=== PATIENT | male | born 1965 | race Caucasian/White ===

== ENCOUNTER 2016-04-11 17:53 | Emergency (ER) | payer BC ==
[2016-04-11 18:24] LABS: BASO % 0.4 % (0.0-1.0); EOS # 0.2 K/mm3 (0.0-0.50); EOS % 2.4 % (0.0-3.0); LARGE UNSTAINED CELL # 0.2 K/mm3 (0.0-0.4); LYMPH # 2.7 K/mm3 (1.5-4.5); LYMPH % 33.6 % (24.0-44.0); MEAN CORPUSCULAR HEMOGLOBIN 29.5 pg (27.0-33.0); MEAN CORPUSCULAR HGB CONC 34.8 g/dl (32.0-36.5); MEAN CORPUSCULAR VOLUME 84.9 fl (80.0-96.0); MONO # 0.5 K/mm3 (0.0-0.8); MONO % 6.6 % (0.0-5.0); NEUTROPHILS # 4.4 K/mm3 (1.8-7.7); PLATELET COUNT, AUTOMATED 162 k/mm3 (150-450); RED CELL DISTRIBUTION WIDTH 12.1 % (11.5-14.5)
[2016-04-11 18:30] LABS: INR 0.95
[2016-04-11 18:46] LABS: ANION GAP 5 MEQ/L (8-16); BLOOD UREA NITROGEN 18 MG/DL (7-18); CALCIUM LEVEL 8.3 MG/DL (8.5-10.1); CARBON DIOXIDE LEVEL 32 MEQ/L (21-32); CHLORIDE LEVEL 105 MEQ/L (98-107); CREATININE FOR GFR 1.01 MG/DL (0.70-1.30); GLOMERULAR FILTRATION RATE > 60.0 (>60); GLUCOSE, FASTING 98 MG/DL (70-105); POTASSIUM SERUM 4.1 MEQ/L (3.5-5.1); SODIUM LEVEL 142 MEQ/L (136-145)
--- NOTE | 2016-04-11 19:07 | REP ---
Clinical: Chest pain . Comparison: 01/05/2016 . Findings: The mediastinum and cardiac silhouette are stable and within normal limits for portable technique. The lung yung are clear without acute consolidation, effusion, or pneumothorax. Skeletal structures are intact. Impression: Stable. No acute cardiopulmonary process identified. The Signed by Garo Scanlon MD 04/11/2016 06:59 P
--- NOTE | 2016-04-12 01:18 | EDDOCDS ---
Nurse's Notes [facility] Name: Fadumo Calloway Age: 50 yrs Sex: Male : 1965 Arrival Date: 04/11/2016 Time: 17:53 Bed OBSERVATION Private MD: Delisa Nickerson Diagnosis: Chest pain, unspecified Presentation: 04/11 17:59 Presenting complaint: Patient states: sudden onset of left sided chest pain while dy working outside. took 1 NTG with some resolution of pain from 09/06 to 06/06 after NTG. patient states that pain now is in left upper back and left upper chest area. Aspirin was taken MED CARE MANAGER. Adult Sepsis Screening: The patient does not have new or worsening altered mentation. Patient's respiratory rate is less than 22. Systolic blood pressure is greater than 100. Patient has a qSOFA score of 0- Negative Sepsis Screen. Suicide/Homicide risk assessment- the patient denies having any suicidal and/or homicidal ideations and does not present with any other emotional, behavioral or mental health complaints. Status: Patient is not a sales service technician or dependent. Transition of care: patient was not received from another setting of care. 17:59 Acuity: TEODORO Level 2 dy 17:59 Method Of Arrival: Walkin/Carried/Asstd dy Triage Assessment: 04/12 01:16 Cardiovascular: Chest pain episodes. kas2 01:16 Pt Declines HIV testing. kas2 Historical: - Allergies: No known drug Allergies; - Home Meds: 1. aspirin 325 mg oral TbEC 1 tab once daily (Last dose: 04/11/2016 07:00) 2. nitroglycerin 0.4 mg SL subl 1 tab (Last dose: 04/11/2016 16:15) 3. Lipitor 80 mg Oral tab 1 tab once daily 4. Plavix 75 mg Oral tab 1 tab once daily 5. Prilosec 40 mg Oral cpDR 1 cap once daily 6. metoprolol succinate 25 mg Tb24 1 tab once daily - PMHx: GERD; Hypercholesterolemia; Hypertension; - PSHx: Cardiac stents; Angioplasty; - Social history: No barriers to communication noted, The patient speaks fluent Maltese, Speaks appropriately for age, Smoking status: Patient states was never smoker of tobacco. - Family history: Not pertinent. - : The pt / caregiver states he / she is on anticoagulants: Plavix. Home medication list is obtained from the patient. - Exposure Risk Screening:: None identified. Screenin/13 18:20 Screening information is obtained from the patient. Fall risk: No risks identified. ml6 Assistance ADL's: requires no assistance with activities of daily living. Abuse/DV Screen: The patient / caregiver reports he/she is: not in a situation that causes fear, pain or injury. Nutritional screening: No deficits noted. Advance Directives: Currently, there is no health care proxy. home support is adequate. Assessment: 18:00 General: Appears in no apparent distress, comfortable, Behavior is appropriate for age, ml6 cooperative. Pain: Denies pain. Neurological: No deficits noted. Level of Consciousness is awake, alert, Oriented to person, place, time. Cardiovascular: Capillary refill < 3 seconds is brisk in bilateral fingers toes Heart tones S1 S2 present Edema is absent. Pulses are all present. Rhythm is regular Chest pain is denied. Respiratory: No deficits noted. Airway is patent Respiratory effort is even, unlabored, Respiratory pattern is regular, symmetrical, Breath sounds are clear bilaterally. GI: No deficits noted. 19:04 General: Verbal report given by Hernesto Baltazar RN. Assumed care of patient at this time.. kas2 19:51 General: Appears in no apparent distress, comfortable, well nourished, well groomed, kas2 Behavior is appropriate for age, cooperative. Pain: Denies pain. Neurological: Level of Consciousness is awake, alert, Oriented to person, place, time. Cardiovascular: Capillary refill < 3 seconds Heart tones S1 S2 present Rhythm is sinus rhythm No ectopy. Chest pain is denied. Respiratory: Airway is patent Respiratory effort is even, unlabored, Respiratory pattern is regular, symmetrical, Breath sounds are clear bilaterally. GI: No deficits noted. Derm: Skin is intact, is healthy with good turgor, Skin is dry, Skin is pink, warm & dry. Skin temperature is warm. 21:05 General: Patient resting in bed with at bedside. Denies pain or discomfort at this kas2 time. No distress noted. Appears comfortable. Call ledesma within reach. Will continue to monitor.. 22:09 General: Appears in no apparent distress, comfortable, well nourished, well groomed, kas2 Behavior is appropriate for age, cooperative. Pain: Denies pain. Neurological: Level of Consciousness is awake, alert, Oriented to person, place, time. Cardiovascular: Rhythm is sinus rhythm No ectopy. Respiratory: Airway is patent Respiratory effort is even, unlabored, Respiratory pattern is regular, symmetrical. Derm: Skin is intact, is healthy with good turgor, Skin is dry, Skin is pink, warm & dry. Skin temperature is warm. 23:21 General: Patient sitting up in bed with at bedside. Denies pain or discomfort at kas2 this time. Appears comfortable. No distress noted. Call ledesma within reach. Will continue to monitor.. 04/12 00:33 General: Appears in no apparent distress, comfortable, well nourished, well groomed, kas2 Behavior is appropriate for age, cooperative, Smells of. Pain: Denies pain. Neurological: Level of Consciousness is awake, alert, Oriented to person, place, time. Cardiovascular: Rhythm is sinus rhythm No ectopy. Respiratory: No deficits noted. Airway is patent Respiratory effort is even, unlabored, Respiratory pattern is regular, symmetrical. Derm: Skin is intact, is healthy with good turgor, Skin is dry, Skin is pink, warm & dry. Skin temperature is warm. Vital Signs: 04/11 17:54 BP 152 / 83; Pulse 64; Resp 18; Temp 97.0(T); Pulse Ox 100% on R/A; Weight 97.52 kg dd6 (R); Height 6 ft. 0 in. (182.88 cm) (R); 18:02 BP 148 / 88 (auto/); kas2 18:03 Pulse 62 MON; Pulse Ox 97% ; kas2 18:03 Resp 20; Temp 97.6(O); Pain 0/10; kas2 18:17 BP 130 / 85 (auto/); kas2 18:17 Pulse 68 MON; Pulse Ox 97% ; kas2 18:32 BP 137 / 83 (auto/); kas2 18:32 Pulse 66 MON; Pulse Ox 96% ; kas2 18:47 BP 138 / 85 (auto/); kas2 18:47 Pulse 64 MON; Pulse Ox 97% ; kas2 19:10 BP 137 / 78 (auto/); kas2 19:10 Pulse 64 MON; Pulse Ox 96% ; kas2 19:17 BP 132 / 83 (auto/); kas2 19:17 Pulse 66 MON; Pulse Ox 96% ; kas2 19:32 BP 140 / 83 (auto/); kas2 19:32 Pulse 64 MON; Pulse Ox 96% ; kas2 19:47 BP 138 / 81 (auto/); kas2 19:47 Pulse 64 MON; Pulse Ox 97% ; kas2 20:02 BP 136 / 82 (auto/); kas2 20:02 Pulse 64 MON; Pulse Ox 97% ; kas2 20:02 Resp 20; kas2 20:17 BP 145 / 87 (auto/); kas2 20:17 Pulse 72 MON; Pulse Ox 97% ; kas2 20:32 BP 135 / 90 (auto/); kas2 20:32 Pulse 70 MON; Pulse Ox 96% ; kas2 20:47 BP 135 / 85 (auto/); kas2 20:47 Pulse 70 MON; Pulse Ox 97% ; kas2 21:02 BP 128 / 78 (auto/); kas2 21:02 Pulse 62 MON; Pulse Ox 97% ; kas2 21:17 BP 148 / 79 (auto/); kas2 21:17 Pulse 68 MON; Pulse Ox 98% ; kas2 21:32 BP 141 / 81 (auto/); kas2 21:32 Pulse 70 MON; Pulse Ox 98% ; kas2 21:47 BP 140 / 87 (auto/); kas2 21:47 Pulse 68 MON; Pulse Ox 96% ; kas2 22:02 BP 142 / 89 (auto/); kas2 22:02 Pulse 68 MON; Pulse Ox 97% ; kas2 22:17 BP 141 / 89 (auto/); kas2 22:17 Pulse 70 MON; Pulse Ox 97% ; kas2 22:32 BP 138 / 87 (auto/); kas2 22:32 Pulse 68 MON; Pulse Ox 97% ; kas2 22:47 Pulse 56 MON; Pulse Ox 96% ; kas2 22:47 BP 134 / 83 (auto/); kas2 23:02 BP 141 / 83 (auto/); kas2 23:02 Pulse 58 MON; Pulse Ox 96% ; kas2 23:17 BP 129 / 78 (auto/); kas2 23:17 Pulse 62 MON; Pulse Ox 96% ; kas2 23:32 BP 126 / 76 (auto/); kas2 23:32 Pulse 62 MON; Pulse Ox 96% ; kas2 04/12 01:14 BP 127 / 64; Pulse 72; Resp 18; Temp 97.9(O); Pulse Ox 99% on R/A; Pain 0/10; kas2 04/11 17:54 Body Mass Index 29.16 (97.52 kg, 182.88 cm) dd6 Vitals: 04/11 17:54 Log In Time: April 11, 2016 at 17:52. dd6 17:55 RN notified that patient meets Red Flag criteria. dd6 ED Course: 17:53 Patient visited by Ankit Rodriguez PCA. dd6 17:53 Patient moved to Waiting dd6 17:54 Delisa Nickerson is Private Physician. dd6 17:59 Barry Baltazar, JUWAN is Primary Nurse. jc4 17:59 Patient moved to 11 jc4 18:01 Triage Initiated dy 18:03 Lauryn Perkins MD is Attending Physician. sd1 18:05 managed care director on. Pulse ox on. NIBP on. kas2 18:14 Patient visited by Lauryn Perkins MD. sd1 18:17 Inserted peripheral IV: 16gauge IV in left antecubital area and blood collected. ml6 Patient tolerated the procedure well. Labs drawn. (by ED staff). Sent per order to lab. 18:44 Patient visited by Kalyani Johnson PCA. jl 18:55 Patient moved to OBSERVATION sd1 19:02 Raisa Smith,RN is Primary Nurse. kas2 19:04 Patient visited by Raisa Smith RN. kas2 19:08 portable chest Returned. EDMS 19:46 Attending Physician role handed off by Lauryn Perkins MD cs11 19:46 Paul Alonso DO is Attending Physician. cs11 19:53 Patient visited by Raisa Smith RN. kas2 21:07 Patient visited by Raisa Smith RN. kas2 22:10 Patient visited by Raisa Smith RN. kas2 23:22 Patient visited by Raisa Smith RN. kas2 04/12 00:20 Patient visited by Lizbeth Benton, Emissions Inspector. jlm 00:20 CARDIAC MARKER PANEL Sent. jlm 00:20 EKG done. (by ED staff). Reviewed by Paul Alonso DO. jlm 00:33 No procedures done that require assistance. kas2 00:34 Patient visited by Raisa Smith RN. [facility]2 01:08 Kody Corrales is Referral Physician. cs11 01:15 Discontinued IV bleeding controlled, pressure dressing applied, No redness/swelling at [facility] site. 01:17 Patient visited by Raisa Smith RN. [facility] 01:17 The patient / caregiver is instructed regarding the plan of care and ED course. [facility] Order Results: Lab Order: Basic Metabolic Profile; SPEC'M 04/11/16 18:13 Test: GLUCOSE, FASTING; Value: 98; Range: 70-105; Units: MG/DL; Status: F Test: BLOOD UREA NITROGEN; Value: 18; Range: 7-18; Units: MG/DL; Status: F Test: CREATININE FOR GFR; Value: 1.01; Range: 0.70-1.30; Units: MG/DL; Status: F Test: GLOMERULAR FILTRATION RATE; Value: > 60.0; Range: >60; Status: F Test: SODIUM LEVEL; Value: 142; Range: 136-145; Units: MEQ/L; Status: F Test: POTASSIUM SERUM; Value: 4.1; Range: 3.5-5.1; Units: MEQ/L; Status: F Test: CHLORIDE LEVEL; Value: 105; Range: 98-107; Units: MEQ/L; Status: F Test: CARBON DIOXIDE LEVEL; Value: 32; Range: 21-32; Units: MEQ/L; Status: F Test: ANION GAP; Value: 5; Range: 8-16; Abnormal: Below low normal; Units: MEQ/L; Status: F Test: CALCIUM LEVEL; Value: 8.3; Range: 8.5-10.1; Abnormal: Below low normal; Units: MG/DL; Status: F Test Note: ; Units are mL/min/1.73 m2 Chronic Kidney Disease Staging per NKF: Stage I & II GFR >=60 Normal to Mildly Decreased Stage III GFR 30-59 Moderately Decreased Stage IV GFR 15-29 Severely Decreased Stage V GFR <15 Very Little GFR Left ESRD GFR <15 on COMMISSIONER OF CONCILIATION Lab Order: CBC with Diff; SPEC'M 04/11/16 18:13 Test: WHITE BLOOD COUNT; Value: 8.0; Range: 4.0-10.0; Units: K/mm3; Status: F Test: RED BLOOD COUNT; Value: 5.03; Range: 4.30-6.10; Units: M/mm3; Status: F Test: HEMOGLOBIN; Value: 14.9; Range: 14.0-18.0; Units: g/dl; Status: F Test: HEMATOCRIT; Value: 42.7; Range: 42.0-52.0; Units: %; Status: F Test: MEAN CORPUSCULAR VOLUME; Value: 84.9; Range: 80.0-96.0; Units: fl; Status: F Test: MEAN CORPUSCULAR HEMOGLOBIN; Value: 29.5; Range: 27.0-33.0; Units: pg; Status: F Test: MEAN CORPUSCULAR HGB CONC; Value: 34.8; Range: 32.0-36.5; Units: g/dl; Status: F Test: RED CELL DISTRIBUTION WIDTH; Value: 12.1; Range: 11.5-14.5; Units: %; Status: F Test: PLATELET COUNT, AUTOMATED; Value: 162; Range: 150-450; Units: k/mm3; Status: F Test: NEUTROPHILS %; Value: 55.0; Range: 36.0-66.0; Units: %; Status: F Test: LYMPH %; Value: 33.6; Range: 24.0-44.0; Units: %; Status: F Test: MONO %; Value: 6.6; Range: 0.0-5.0; Abnormal: Above high normal; Units: %; Status: F Test: EOS %; Value: 2.4; Range: 0.0-3.0; Units: %; Status: F Test: BASO %; Value: 0.4; Range: 0.0-1.0; Units: %; Status: F Test: LARGE UNSTAINED CELL %; Value: 2.0; Range: 0.0-4.0; Units: %; Status: F Test: NEUTROPHILS #; Value: 4.4; Range: 1.8-7.7; Units: K/mm3; Status: F Test: LYMPH #; Value: 2.7; Range: 1.5-4.5; Units: K/mm3; Status: F Test: MONO #; Value: 0.5; Range: 0.0-0.8; Units: K/mm3; Status: F Test: EOS #; Value: 0.2; Range: 0.0-0.50; Units: K/mm3; Status: F Test: BASO #; Value: 0.0; Range: 0.0-0.2; Units: K/mm3; Status: F Test: LARGE UNSTAINED CELL #; Value: 0.2; Range: 0.0-0.4; Units: K/mm3; Status: F Lab Order: Cardiac Injury Profile; [facility] 04/11/16 18:13 Test: CPK CREATINE PHOSPHOKINASE; Value: 107; Range: 39-308; Units: U/L; Status: F Test: CK-MB VALUE MASS; Value: 1.2; Range: 0.0-3.6; Units: NG/ML; Status: F Test: MB/CK RELATIVE INDEX; Value: 1.12; Range: < OR =4; Status: F Test Note: ; DIAGNOSIS CRITERIA MMB ng/ml Relative Index (RI) NON-AMI < or = 5 N/A [place]ASSERMAN ZONE > 5 < or = 4 AMI > 5 > 4 Lab Order: Prothrombin Time Profile\E\INR; [facility] 04/11/16 18:13 Test: PROTHROMBIN TIME; Value: 12.8; Range: 12.3-14.5; Units: SECONDS; Status: F Test: INR; Value: 0.95; Status: F Test Note: ; THERAPUTIC HUMAN INR VALUES INDICATIONS NORMAL RANGES PROPHYLAXIS/TREATMENT OF: VENOUS THROMBOSIS 2.0-3.0 PULMONARY EMBOLISM 2.0-3.0 PREVENTION OF SYSTEMIC EMBOLISM FROM: TISSUE HEART VALVES 2.0-3.0 ACUTE MYOCARDIAL INFARCTION 2.0-3.0 VALVULAR HEART DISEASE 2.0-3.0 ATRIAL FIBRILLATION 2.0-3.0 MECHANICAL VALVES(HIGH RISK) 2.5-3.5 RECURRENT MYOCARDIAL INFARCTION 2.5-3.5 Lab Order: Troponin; 04/11/16 18:13 Test: TROPONIN I; Value: < 0.02; Range: < 0.10; Units: NG/ML; Status: F Test Note: ; Troponin I Reference Interval for [employer] LOCI: 99th Percentile= 0.00-0.045 ng/ml Risk Stratification: <= 0.10 ng/ml Decreased Risk for Adverse Clinical Events. 0.10-1.50 ng/ml Increased Risk for Adverse Clinical Events. Evaluation of additional criterion and/or repeat testing in 2-6 hours is suggested to rule out myocardial damage. >= 1.50 ng/ml Indicative of Myocardial Injury. Lab Order: CARDIAC MARKER PANEL; SPEC'M 04/12/16 00:17 Test: CPK CREATINE PHOSPHOKINASE; Value: 84; Range: 39-308; Units: U/L; Status: F Test: CK-MB VALUE MASS; Value: 1.0; Range: 0.0-3.6; Units: NG/ML; Status: F Test: MB/CK RELATIVE INDEX; Value: 1.19; Range: < OR =4; Status: F Test: TROPONIN I; Value: < 0.02; Range: < 0.10; Units: NG/ML; Status: F Test Note: ; DIAGNOSIS CRITERIA MMB ng/ml Relative Index (RI) NON-AMI < or = 5 N/A WASSERMAN ZONE > 5 < or = 4 AMI > 5 > 4 Radiology Order: portable chest Test: portable chest REASON FOR EXAMINATION: Chest Pain; Clinical: Chest pain .; ; Comparison: 01/05/2016 .; ; Findings:; The mediastinum and cardiac silhouette are stable and within normal limits for; portable technique. The lung yung are clear without acute consolidation,; effusion, or pneumothorax. Skeletal structures are intact.; ; Impression:; Stable. No acute cardiopulmonary process identified. The; ; ; Signed by; Garo Scanlon MD 04/11/2016 06:59 P; Outcome: 01:08 Discharge ordered by Provider. 11 01:16 Discharge Assessment: patient administered narcotics - no. The following High Risk kas2 Discharge criteria are identified: None. Discharged to home ambulatory, with significant other. Condition: good Condition: stable Condition: improved. No special radiology studies were completed. Property :Personal belongings accompany Pt. 01:17 Patient left the ED. kas2 Signatures: Dispatcher [employer] EDMS Lauryn Perkins MD MD sd1 Scotty Deng, RN RN dy Ankit Rodriguez, NILESH PRICING LEAD dd6 Barry Baltazar RN RN ml6 Marlen Gramajo RN RN jc4 Paul Alonso DO DO cs11 Kalyani Johnson PRICING LEAD PRICING LEAD jlf Lizbeth Benton, Emissions Inspector Unit Raisa Chen,RN RN kas2 Corrections: (The following items were deleted from the chart) 04/11 18:07 18:03 Home Meds: metoprolol tartrate 50 mg Oral tab 1 tab 2 times per day; dy dy MTDD
--- NOTE | 2016-04-12 01:18 | EDDOCDS ---
[facility] Name: Fadumo Calloway Age: 50 yrs Sex: Male : 1965 Arrival Date: 04/11/2016 Time: 17:53 Bed OBSERVATION Private MD: Delisa Nickerson Disposition: 04/12/16 01:08 Discharged to Home/Self Care. Impression: Chest pain, unspecified. - Condition is Stable. - Medication Reconciliation, Local Pharmacy Hours form. - Follow up: Kody Corrales; When: Call to arrange an appointment; Reason: Recheck today's complaints. - Problem is an ongoing problem. - Symptoms have improved. Historical: - Allergies: No known drug Allergies; - Home Meds: 1. aspirin 325 mg oral TbEC 1 tab once daily (Last dose: 04/11/2016 07:00) 2. nitroglycerin 0.4 mg SL subl 1 tab (Last dose: 04/11/2016 16:15) 3. Lipitor 80 mg Oral tab 1 tab once daily 4. Plavix 75 mg Oral tab 1 tab once daily 5. Prilosec 40 mg Oral cpDR 1 cap once daily 6. metoprolol succinate 25 mg Tb24 1 tab once daily - PMHx: GERD; Hypercholesterolemia; Hypertension; - PSHx: Cardiac stents; Angioplasty; - Social history: No barriers to communication noted, The patient speaks fluent Frisian, Speaks appropriately for age, Smoking status: Patient states was never smoker of tobacco. - Family history: Not pertinent. - : The pt / caregiver states he / she is on anticoagulants: Plavix. Home medication list is obtained from the patient. - Exposure Risk Screening:: None identified. Vital Signs: 04/11 17:54 BP 152 / 83; Pulse 64; Resp 18; Temp 97.0(T); Pulse Ox 100% on R/A; Weight 97.52 kg / dd6 214.99 lbs (R); Height 6 ft. 0 in. (182.88 cm) (R); 18:02 BP 148 / 88 (auto/); kas2 18:03 Pulse 62 MON; Pulse Ox 97% ; kas2 18:03 Resp 20; Temp 97.6(O); Pain 0/10; kas2 18:17 BP 130 / 85 (auto/); kas2 18:17 Pulse 68 MON; Pulse Ox 97% ; kas2 18:32 BP 137 / 83 (auto/); kas2 18:32 Pulse 66 MON; Pulse Ox 96% ; kas2 18:47 BP 138 / 85 (auto/); kas2 18:47 Pulse 64 MON; Pulse Ox 97% ; kas2 19:10 BP 137 / 78 (auto/); kas2 19:10 Pulse 64 MON; Pulse Ox 96% ; kas2 19:17 BP 132 / 83 (auto/); kas2 19:17 Pulse 66 MON; Pulse Ox 96% ; kas2 19:32 BP 140 / 83 (auto/); kas2 19:32 Pulse 64 MON; Pulse Ox 96% ; kas2 19:47 BP 138 / 81 (auto/); kas2 19:47 Pulse 64 MON; Pulse Ox 97% ; kas2 20:02 BP 136 / 82 (auto/); kas2 20:02 Pulse 64 MON; Pulse Ox 97% ; kas2 20:02 Resp 20; kas2 20:17 BP 145 / 87 (auto/); kas2 20:17 Pulse 72 MON; Pulse Ox 97% ; kas2 20:32 BP 135 / 90 (auto/); kas2 20:32 Pulse 70 MON; Pulse Ox 96% ; kas2 20:47 BP 135 / 85 (auto/); kas2 20:47 Pulse 70 MON; Pulse Ox 97% ; kas2 21:02 BP 128 / 78 (auto/); kas2 21:02 Pulse 62 MON; Pulse Ox 97% ; kas2 21:17 BP 148 / 79 (auto/); kas2 21:17 Pulse 68 MON; Pulse Ox 98% ; kas2 21:32 BP 141 / 81 (auto/); kas2 21:32 Pulse 70 MON; Pulse Ox 98% ; kas2 21:47 BP 140 / 87 (auto/); kas2 21:47 Pulse 68 MON; Pulse Ox 96% ; kas2 22:02 BP 142 / 89 (auto/); kas2 22:02 Pulse 68 MON; Pulse Ox 97% ; kas2 22:17 BP 141 / 89 (auto/); kas2 22:17 Pulse 70 MON; Pulse Ox 97% ; kas2 22:32 BP 138 / 87 (auto/); kas2 22:32 Pulse 68 MON; Pulse Ox 97% ; kas2 22:47 Pulse 56 MON; Pulse Ox 96% ; kas2 22:47 BP 134 / 83 (auto/); kas2 23:02 BP 141 / 83 (auto/); kas2 23:02 Pulse 58 MON; Pulse Ox 96% ; kas2 23:17 BP 129 / 78 (auto/); kas2 23:17 Pulse 62 MON; Pulse Ox 96% ; kas2 23:32 BP 126 / 76 (auto/); kas2 23:32 Pulse 62 MON; Pulse Ox 96% ; [facility] 04/12 01:14 BP 127 / 64; Pulse 72; Resp 18; Temp 97.9(O); Pulse Ox 99% on R/A; Pain 0/10; [facility] 04/11 17:54 Body Mass Index 29.16 (97.52 kg, 182.88 cm) dd6 MDM: 04/11 17:59 ECG WITH READING ER PHYS+CARDIAG ordered. EDMS 18:02 Business Office Technology Instructor/Pulse Ox/q 30 min VS ordered. sd1 18:02 IV Saline Lock ordered. sd1 18:02 Rhythm Strip to chart ordered. sd1 18:02 Undress patient appropriately for examination ordered. sd1 18:03 Basic Metabolic Profile Ordered. EDMS 18:03 CBC with Diff Ordered. EDMS 18:03 Cardiac Injury Profile Ordered. EDMS 18:03 Prothrombin Time Profile\E\INR Ordered. EDMS 18:03 Troponin Ordered. EDMS 18:05 portable chest Ordered. EDMS 18:48 Basic Metabolic Profile Reviewed. sd1 18:48 CBC with Diff Reviewed. sd1 18:48 Prothrombin Time Profile\E\INR Reviewed. sd1 18:48 Troponin Reviewed. sd1 18:54 Basic Metabolic Profile Reviewed. sd1 18:54 Cardiac Injury Profile Reviewed. sd1 18:54 Troponin Reviewed. sd1 18:55 Redraw CIP &Troponin (put time in details section) ordered. sd1 18:55 Repeat EKG (put time details section) ordered. sd1 19:06 Repeat EKG (put time details section) complete. tmm1 19:06 Redraw CIP &Troponin (put time in details section) complete. tmm1 19:08 ECG WITH READING ER PHYS ordered. EDMS 19:21 portable chest Reviewed. sd1 19:30 Financial registration complete. gjb 19:31 CARDIAC MARKER PANEL Ordered. EDMS Signatures: Dispatcher [employer] EDMS Mars-Araya, Lauryn, MD MD sd1 Scotty Deng, RN RN dy Paul Alonso DO DO cs11 McLear, Saba, CONTROL SYSTEMS DRAFTING OFFICER CONTROL SYSTEMS DRAFTING OFFICER tmm1 Lety Arenas KimRN RN kas2 The chart was reviewed and I authenticate all verbal orders and agree with the evaluation and treatment provided.Corrections: (The following items were deleted from the chart) 18:07 18:03 Home Meds: metoprolol tartrate 50 mg Oral tab 1 tab 2 times per day; dy dy MTDD
--- NOTE | 2016-04-12 05:52 | ECGEPIP ---
Stationary ECG Study [facility] - ED Test Date: 2016-04-11 Pat Name: SCOTTY ROSALES Department: Room: - Gender: M Director Talent Management: : 1965 Requested By: Lauryn Perkins Order Number: [id number] Reading MD: Robinson Delatorre Measurements Intervals [place] Rate: 61 P: 36 IN: 154 QRS: 9 QRSD: 99 T: 14 QT: 379 QTc: 384 Interpretive Statements SINUS RHYTHM WITH SINUS ARRHYTHMIA POSSIBLE PRIOR INFERIOR INFARCT SIMILAR TO PRIORS Electronically Signed On 04-12-2016 5:51:52 EST by Robinson Delatorre
--- NOTE | 2016-04-12 07:15 | ECGEPIP ---
Stationary ECG Study [facility] - ED Test Date: 2016-04-12 Pat Name: SCOTTY ROSALES Department: Room: - Gender: M Engine Test Cell Technician: humphrey : 1965 Requested By: Lauryn Perkins Order Number: [id number] Reading MD: Lauryn Perkins Measurements Intervals [place] Rate: 63 P: 34 CO: 160 QRS: 24 QRSD: 108 T: 8 QT: 408 QTc: 418 Interpretive Statements SINUS RHYTHM ?PRIOR INFERIOR INFARCT SIMILAR 04/11/16 Electronically Signed On 04-12-2016 7:15:32 EST by Lauryn Perkins
--- NOTE | 2016-04-14 02:18 | EDDOCDS ---
Physician Documentation [facility] Name: Fadumo Calloway Age: 50 yrs Sex: Male : 1965 Arrival Date: 04/11/2016 Time: 17:53 Bed OBSERVATION Private MD: Delisa Nickerson Disposition: 04/12/16 01:08 Discharged to Home/Self Care. Impression: Chest pain, unspecified. - Condition is Stable. - Medication Reconciliation, Local Pharmacy Hours form. - Follow up: Kody Corrales; When: Call to arrange an appointment; Reason: Recheck today's complaints. - Problem is an ongoing problem. - Symptoms have improved. Historical: - Allergies: No known drug Allergies; - Home Meds: 1. aspirin 325 mg oral TbEC 1 tab once daily (Last dose: 04/11/2016 07:00) 2. nitroglycerin 0.4 mg SL subl 1 tab (Last dose: 04/11/2016 16:15) 3. Lipitor 80 mg Oral tab 1 tab once daily 4. Plavix 75 mg Oral tab 1 tab once daily 5. Prilosec 40 mg Oral cpDR 1 cap once daily 6. metoprolol succinate 25 mg Tb24 1 tab once daily - PMHx: GERD; Hypercholesterolemia; Hypertension; - PSHx: Cardiac stents; Angioplasty; - Social history: No barriers to communication noted, The patient speaks fluent Estonian, Speaks appropriately for age, Smoking status: Patient states was never smoker of tobacco. - Family history: Not pertinent. - : The pt / caregiver states he / she is on anticoagulants: Plavix. Home medication list is obtained from the patient. - Exposure Risk Screening:: None identified. Vital Signs: 04/11 17:54 BP 152 / 83; Pulse 64; Resp 18; Temp 97.0(T); Pulse Ox 100% on R/A; Weight 97.52 kg / dd6 214.99 lbs (R); Height 6 ft. 0 in. (182.88 cm) (R); 18:02 BP 148 / 88 (auto/); kas2 18:03 Pulse 62 MON; Pulse Ox 97% ; kas2 18:03 Resp 20; Temp 97.6(O); Pain 0/10; kas2 18:17 BP 130 / 85 (auto/); kas2 18:17 Pulse 68 MON; Pulse Ox 97% ; kas2 18:32 BP 137 / 83 (auto/); kas2 18:32 Pulse 66 MON; Pulse Ox 96% ; kas2 18:47 BP 138 / 85 (auto/); kas2 18:47 Pulse 64 MON; Pulse Ox 97% ; kas2 19:10 BP 137 / 78 (auto/); kas2 19:10 Pulse 64 MON; Pulse Ox 96% ; kas2 19:17 BP 132 / 83 (auto/); kas2 19:17 Pulse 66 MON; Pulse Ox 96% ; kas2 19:32 BP 140 / 83 (auto/); kas2 19:32 Pulse 64 MON; Pulse Ox 96% ; kas2 19:47 BP 138 / 81 (auto/); kas2 19:47 Pulse 64 MON; Pulse Ox 97% ; kas2 20:02 BP 136 / 82 (auto/); kas2 20:02 Pulse 64 MON; Pulse Ox 97% ; kas2 20:02 Resp 20; kas2 20:17 BP 145 / 87 (auto/); kas2 20:17 Pulse 72 MON; Pulse Ox 97% ; kas2 20:32 BP 135 / 90 (auto/); kas2 20:32 Pulse 70 MON; Pulse Ox 96% ; kas2 20:47 BP 135 / 85 (auto/); kas2 20:47 Pulse 70 MON; Pulse Ox 97% ; kas2 21:02 BP 128 / 78 (auto/); kas2 21:02 Pulse 62 MON; Pulse Ox 97% ; kas2 21:17 BP 148 / 79 (auto/); kas2 21:17 Pulse 68 MON; Pulse Ox 98% ; kas2 21:32 BP 141 / 81 (auto/); kas2 21:32 Pulse 70 MON; Pulse Ox 98% ; kas2 21:47 BP 140 / 87 (auto/); kas2 21:47 Pulse 68 MON; Pulse Ox 96% ; kas2 22:02 BP 142 / 89 (auto/); kas2 22:02 Pulse 68 MON; Pulse Ox 97% ; kas2 22:17 BP 141 / 89 (auto/); kas2 22:17 Pulse 70 MON; Pulse Ox 97% ; kas2 22:32 BP 138 / 87 (auto/); kas2 22:32 Pulse 68 MON; Pulse Ox 97% ; kas2 22:47 Pulse 56 MON; Pulse Ox 96% ; kas2 22:47 BP 134 / 83 (auto/); kas2 23:02 BP 141 / 83 (auto/); kas2 23:02 Pulse 58 MON; Pulse Ox 96% ; kas2 23:17 BP 129 / 78 (auto/); kas2 23:17 Pulse 62 MON; Pulse Ox 96% ; kas2 23:32 BP 126 / 76 (auto/); kas2 23:32 Pulse 62 MON; Pulse Ox 96% ; [facility] 04/12 01:14 BP 127 / 64; Pulse 72; Resp 18; Temp 97.9(O); Pulse Ox 99% on R/A; Pain 0/10; [facility] 04/11 17:54 Body Mass Index 29.16 (97.52 kg, 182.88 cm) dd6 MDM: 04/11 17:59 ECG WITH READING ER PHYS+CARDIAG ordered. EDMS 18:02 Commodity Industry Analyst/Pulse Ox/q 30 min VS ordered. sd1 18:02 IV Saline Lock ordered. sd1 18:02 Rhythm Strip to chart ordered. sd1 18:02 Undress patient appropriately for examination ordered. sd1 18:03 Basic Metabolic Profile Ordered. EDMS 18:03 CBC with Diff Ordered. EDMS 18:03 Cardiac Injury Profile Ordered. EDMS 18:03 Prothrombin Time Profile\E\INR Ordered. EDMS 18:03 Troponin Ordered. EDMS 18:05 portable chest Ordered. EDMS 18:48 Basic Metabolic Profile Reviewed. sd1 18:48 CBC with Diff Reviewed. sd1 18:48 Prothrombin Time Profile\E\INR Reviewed. sd1 18:48 Troponin Reviewed. sd1 18:54 Basic Metabolic Profile Reviewed. sd1 18:54 Cardiac Injury Profile Reviewed. sd1 18:54 Troponin Reviewed. sd1 18:55 Redraw CIP &Troponin (put time in details section) ordered. sd1 18:55 Repeat EKG (put time details section) ordered. sd1 19:06 Repeat EKG (put time details section) complete. tmm1 19:06 Redraw CIP &Troponin (put time in details section) complete. tmm1 19:08 ECG WITH READING ER PHYS ordered. EDMS 19:21 portable chest Reviewed. sd1 19:30 Financial registration complete. gjb 19:31 CARDIAC MARKER PANEL Ordered. EDMS 04/12 07:50 T-Sheet-- Draft Copy was scanned into [employer] and attached to record. se 10:59 ECG/EKG was scanned into [employer] and attached to record. gb 11:32 T-Sheet-- Draft Copy was scanned into [employer] and attached to record. gb Signatures: Dispatcher [employer] EDLauryn Rodriguez MD MD sd1 Genevieve Francois, Reg Reg gb Scotty Deng, RN RN Paul Sexton DO DO cs11 McLear, [place]aba, VETERINARY SURGEON VETERINARY SURGEON tmm1 Lety Arenas Kim, RN RN kas2 Lauryn Chavez [facility] The chart was reviewed and I authenticate all verbal orders and agree with the evaluation and treatment provided.Corrections: (The following items were deleted from the chart) 04/11 18:07 18:03 Home Meds: metoprolol tartrate 50 mg Oral tab 1 tab 2 times per day; kenneth cooper Attachments: 10:59 ECG/EKG 11:32 T-Sheet-- Draft Copy gb Chart Complete MTDD
--- NOTE | 2016-04-14 02:18 | EDDOCDS ---
Physician Documentation [facility] Name: Fadumo Calloway Age: 50 yrs Sex: Male : 1965 Arrival Date: 04/11/2016 Time: 17:53 Bed OBSERVATION Private MD: Delisa Nickerson Disposition: 04/12/16 01:08 Discharged to Home/Self Care. Impression: Chest pain, unspecified. - Condition is Stable. - Medication Reconciliation, Local Pharmacy Hours form. - Follow up: Kody Corrales; When: Call to arrange an appointment; Reason: Recheck today's complaints. - Problem is an ongoing problem. - Symptoms have improved. Historical: - Allergies: No known drug Allergies; - Home Meds: 1. aspirin 325 mg oral TbEC 1 tab once daily (Last dose: 04/11/2016 07:00) 2. nitroglycerin 0.4 mg SL subl 1 tab (Last dose: 04/11/2016 16:15) 3. Lipitor 80 mg Oral tab 1 tab once daily 4. Plavix 75 mg Oral tab 1 tab once daily 5. Prilosec 40 mg Oral cpDR 1 cap once daily 6. metoprolol succinate 25 mg Tb24 1 tab once daily - PMHx: GERD; Hypercholesterolemia; Hypertension; - PSHx: Cardiac stents; Angioplasty; - Social history: No barriers to communication noted, The patient speaks fluent Kiswahili, Speaks appropriately for age, Smoking status: Patient states was never smoker of tobacco. - Family history: Not pertinent. - : The pt / caregiver states he / she is on anticoagulants: Plavix. Home medication list is obtained from the patient. - Exposure Risk Screening:: None identified. Vital Signs: 04/11 17:54 BP 152 / 83; Pulse 64; Resp 18; Temp 97.0(T); Pulse Ox 100% on R/A; Weight 97.52 kg / dd6 214.99 lbs (R); Height 6 ft. 0 in. (182.88 cm) (R); 18:02 BP 148 / 88 (auto/); kas2 18:03 Pulse 62 MON; Pulse Ox 97% ; kas2 18:03 Resp 20; Temp 97.6(O); Pain 0/10; kas2 18:17 BP 130 / 85 (auto/); kas2 18:17 Pulse 68 MON; Pulse Ox 97% ; kas2 18:32 BP 137 / 83 (auto/); kas2 18:32 Pulse 66 MON; Pulse Ox 96% ; kas2 18:47 BP 138 / 85 (auto/); kas2 18:47 Pulse 64 MON; Pulse Ox 97% ; kas2 19:10 BP 137 / 78 (auto/); kas2 19:10 Pulse 64 MON; Pulse Ox 96% ; kas2 19:17 BP 132 / 83 (auto/); kas2 19:17 Pulse 66 MON; Pulse Ox 96% ; kas2 19:32 BP 140 / 83 (auto/); kas2 19:32 Pulse 64 MON; Pulse Ox 96% ; kas2 19:47 BP 138 / 81 (auto/); kas2 19:47 Pulse 64 MON; Pulse Ox 97% ; kas2 20:02 BP 136 / 82 (auto/); kas2 20:02 Pulse 64 MON; Pulse Ox 97% ; kas2 20:02 Resp 20; kas2 20:17 BP 145 / 87 (auto/); kas2 20:17 Pulse 72 MON; Pulse Ox 97% ; kas2 20:32 BP 135 / 90 (auto/); kas2 20:32 Pulse 70 MON; Pulse Ox 96% ; kas2 20:47 BP 135 / 85 (auto/); kas2 20:47 Pulse 70 MON; Pulse Ox 97% ; kas2 21:02 BP 128 / 78 (auto/); kas2 21:02 Pulse 62 MON; Pulse Ox 97% ; kas2 21:17 BP 148 / 79 (auto/); kas2 21:17 Pulse 68 MON; Pulse Ox 98% ; kas2 21:32 BP 141 / 81 (auto/); kas2 21:32 Pulse 70 MON; Pulse Ox 98% ; kas2 21:47 BP 140 / 87 (auto/); kas2 21:47 Pulse 68 MON; Pulse Ox 96% ; kas2 22:02 BP 142 / 89 (auto/); kas2 22:02 Pulse 68 MON; Pulse Ox 97% ; kas2 22:17 BP 141 / 89 (auto/); kas2 22:17 Pulse 70 MON; Pulse Ox 97% ; kas2 22:32 BP 138 / 87 (auto/); kas2 22:32 Pulse 68 MON; Pulse Ox 97% ; kas2 22:47 Pulse 56 MON; Pulse Ox 96% ; kas2 22:47 BP 134 / 83 (auto/); kas2 23:02 BP 141 / 83 (auto/); kas2 23:02 Pulse 58 MON; Pulse Ox 96% ; kas2 23:17 BP 129 / 78 (auto/); kas2 23:17 Pulse 62 MON; Pulse Ox 96% ; kas2 23:32 BP 126 / 76 (auto/); kas2 23:32 Pulse 62 MON; Pulse Ox 96% ; [facility] 04/12 01:14 BP 127 / 64; Pulse 72; Resp 18; Temp 97.9(O); Pulse Ox 99% on R/A; Pain 0/10; [facility] 04/11 17:54 Body Mass Index 29.16 (97.52 kg, 182.88 cm) dd6 MDM: 04/11 17:59 ECG WITH READING ER PHYS+CARDIAG ordered. EDMS 18:02 Compliance Spec/Pulse Ox/q 30 min VS ordered. sd1 18:02 IV Saline Lock ordered. sd1 18:02 Rhythm Strip to chart ordered. sd1 18:02 Undress patient appropriately for examination ordered. sd1 18:03 Basic Metabolic Profile Ordered. EDMS 18:03 CBC with Diff Ordered. EDMS 18:03 Cardiac Injury Profile Ordered. EDMS 18:03 Prothrombin Time Profile\E\INR Ordered. EDMS 18:03 Troponin Ordered. EDMS 18:05 portable chest Ordered. EDMS 18:48 Basic Metabolic Profile Reviewed. sd1 18:48 CBC with Diff Reviewed. sd1 18:48 Prothrombin Time Profile\E\INR Reviewed. sd1 18:48 Troponin Reviewed. sd1 18:54 Basic Metabolic Profile Reviewed. sd1 18:54 Cardiac Injury Profile Reviewed. sd1 18:54 Troponin Reviewed. sd1 18:55 Redraw CIP &Troponin (put time in details section) ordered. sd1 18:55 Repeat EKG (put time details section) ordered. sd1 19:06 Repeat EKG (put time details section) complete. tmm1 19:06 Redraw CIP &Troponin (put time in details section) complete. tmm1 19:08 ECG WITH READING ER PHYS ordered. EDMS 19:21 portable chest Reviewed. sd1 19:30 Financial registration complete. gjb 19:31 CARDIAC MARKER PANEL Ordered. EDMS 04/12 07:50 T-Sheet-- Draft Copy was scanned into [employer] and attached to record. se 10:59 ECG/EKG was scanned into [employer] and attached to record. gb 11:32 T-Sheet-- Draft Copy was scanned into [employer] and attached to record. gb Signatures: Dispatcher [employer] EDLauryn Rodriguez MD MD sd1 Genevieve Francois, Reg Reg gb Scotty Deng, RN RN Paul Sexton DO DO cs11 McLear, [place], JD EDWARDS CONSULTANT JD EDWARDS CONSULTANT tmm1 Lety Arenas Kim, RN RN kas2 Lauryn Chavez [facility] The chart was reviewed and I authenticate all verbal orders and agree with the evaluation and treatment provided.Corrections: (The following items were deleted from the chart) 04/11 18:07 18:03 Home Meds: metoprolol tartrate 50 mg Oral tab 1 tab 2 times per day; kenneth cooper Attachments: 10:59 ECG/EKG 11:32 T-Sheet-- Draft Copy gb Chart Complete MTDD
--- NOTE | 2016-04-14 02:18 | EDDOCDS ---
Nurse's Notes [facility] Name: Scotty Rosales Age: 50 yrs Sex: Male : 1965 Arrival Date: 04/11/2016 Time: 17:53 Bed OBSERVATION Private MD: Delisa Nickerson Diagnosis: Chest pain, unspecified Presentation: 04/11 17:59 Presenting complaint: Patient states: sudden onset of left sided chest pain while dy working outside. took 1 NTG with some resolution of pain from 09/06 to 06/06 after NTG. patient states that pain now is in left upper back and left upper chest area. 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 Adult Sepsis Screening: The patient does not have new or worsening altered mentation. Patient's respiratory rate is less than 22. Systolic blood pressure is greater than 100. Patient has a qSOFA score of 0- Negative Sepsis Screen. Suicide/Homicide risk assessment- the patient denies having any suicidal and/or homicidal ideations and does not present with any other emotional, behavioral or mental health complaints. Status: Patient is not a services mgr or dependent. Transition of care: patient was not received from another setting of care. 17:59 Acuity: TEODORO Level 2 dy 17:59 Method Of Arrival: Walkin/Carried/Asstd dy Triage Assessment: 04/12 01:16 Cardiovascular: Chest pain episodes. kas2 01:16 Pt Declines HIV testing. kas2 Historical: - Allergies: No known drug Allergies; - Home Meds: 1. aspirin 325 mg oral TbEC 1 tab once daily (Last dose: 04/11/2016 07:00) 2. nitroglycerin 0.4 mg SL subl 1 tab (Last dose: 04/11/2016 16:15) 3. Lipitor 80 mg Oral tab 1 tab once daily 4. Plavix 75 mg Oral tab 1 tab once daily 5. Prilosec 40 mg Oral cpDR 1 cap once daily 6. metoprolol succinate 25 mg Tb24 1 tab once daily - PMHx: GERD; Hypercholesterolemia; Hypertension; - PSHx: Cardiac stents; Angioplasty; - Social history: No barriers to communication noted, The patient speaks fluent Divehi, Speaks appropriately for age, Smoking status: Patient states was never smoker of tobacco. - Family history: Not pertinent. - : The pt / caregiver states he / she is on anticoagulants: Plavix. Home medication list is obtained from the patient. - Exposure Risk Screening:: None identified. Screenin/13 18:20 Screening information is obtained from the patient. Fall risk: No risks identified. ml6 Assistance ADL's: requires no assistance with activities of daily living. Abuse/DV Screen: The patient / caregiver reports he/she is: not in a situation that causes fear, pain or injury. Nutritional screening: No deficits noted. Advance Directives: Currently, there is no health care proxy. home support is adequate. Assessment: 18:00 General: Appears in no apparent distress, comfortable, Behavior is appropriate for age, ml6 cooperative. Pain: Denies pain. Neurological: No deficits noted. Level of Consciousness is awake, alert, Oriented to person, place, time. Cardiovascular: Capillary refill < 3 seconds is brisk in bilateral fingers toes Heart tones S1 S2 present Edema is absent. Pulses are all present. Rhythm is regular Chest pain is denied. Respiratory: No deficits noted. Airway is patent Respiratory effort is even, unlabored, Respiratory pattern is regular, symmetrical, Breath sounds are clear bilaterally. GI: No deficits noted. 19:04 General: Verbal report given by Hernesto Baltazar RN. Assumed care of patient at this time.. kas2 19:51 General: Appears in no apparent distress, comfortable, well nourished, well groomed, kas2 Behavior is appropriate for age, cooperative. Pain: Denies pain. Neurological: Level of Consciousness is awake, alert, Oriented to person, place, time. Cardiovascular: Capillary refill < 3 seconds Heart tones S1 S2 present Rhythm is sinus rhythm No ectopy. Chest pain is denied. Respiratory: Airway is patent Respiratory effort is even, unlabored, Respiratory pattern is regular, symmetrical, Breath sounds are clear bilaterally. GI: No deficits noted. Derm: Skin is intact, is healthy with good turgor, Skin is dry, Skin is pink, warm & dry. Skin temperature is warm. 21:05 General: Patient resting in bed with at bedside. Denies pain or discomfort at this kas2 time. No distress noted. Appears comfortable. Call ledesma within reach. Will continue to monitor.. 22:09 General: Appears in no apparent distress, comfortable, well nourished, well groomed, kas2 Behavior is appropriate for age, cooperative. Pain: Denies pain. Neurological: Level of Consciousness is awake, alert, Oriented to person, place, time. Cardiovascular: Rhythm is sinus rhythm No ectopy. Respiratory: Airway is patent Respiratory effort is even, unlabored, Respiratory pattern is regular, symmetrical. Derm: Skin is intact, is healthy with good turgor, Skin is dry, Skin is pink, warm & dry. Skin temperature is warm. 23:21 General: Patient sitting up in bed with at bedside. Denies pain or discomfort at kas2 this time. Appears comfortable. No distress noted. Call ledesma within reach. Will continue to monitor.. 04/12 00:33 General: Appears in no apparent distress, comfortable, well nourished, well groomed, kas2 Behavior is appropriate for age, cooperative, Smells of. Pain: Denies pain. Neurological: Level of Consciousness is awake, alert, Oriented to person, place, time. Cardiovascular: Rhythm is sinus rhythm No ectopy. Respiratory: No deficits noted. Airway is patent Respiratory effort is even, unlabored, Respiratory pattern is regular, symmetrical. Derm: Skin is intact, is healthy with good turgor, Skin is dry, Skin is pink, warm & dry. Skin temperature is warm. Vital Signs: 04/11 17:54 BP 152 / 83; Pulse 64; Resp 18; Temp 97.0(T); Pulse Ox 100% on R/A; Weight 97.52 kg dd6 (R); Height 6 ft. 0 in. (182.88 cm) (R); 18:02 BP 148 / 88 (auto/); kas2 18:03 Pulse 62 MON; Pulse Ox 97% ; kas2 18:03 Resp 20; Temp 97.6(O); Pain 0/10; kas2 18:17 BP 130 / 85 (auto/); kas2 18:17 Pulse 68 MON; Pulse Ox 97% ; kas2 18:32 BP 137 / 83 (auto/); kas2 18:32 Pulse 66 MON; Pulse Ox 96% ; kas2 18:47 BP 138 / 85 (auto/); kas2 18:47 Pulse 64 MON; Pulse Ox 97% ; kas2 19:10 BP 137 / 78 (auto/); kas2 19:10 Pulse 64 MON; Pulse Ox 96% ; kas2 19:17 BP 132 / 83 (auto/); kas2 19:17 Pulse 66 MON; Pulse Ox 96% ; kas2 19:32 BP 140 / 83 (auto/); kas2 19:32 Pulse 64 MON; Pulse Ox 96% ; kas2 19:47 BP 138 / 81 (auto/); kas2 19:47 Pulse 64 MON; Pulse Ox 97% ; kas2 20:02 BP 136 / 82 (auto/); kas2 20:02 Pulse 64 MON; Pulse Ox 97% ; kas2 20:02 Resp 20; kas2 20:17 BP 145 / 87 (auto/); kas2 20:17 Pulse 72 MON; Pulse Ox 97% ; kas2 20:32 BP 135 / 90 (auto/); kas2 20:32 Pulse 70 MON; Pulse Ox 96% ; kas2 20:47 BP 135 / 85 (auto/); kas2 20:47 Pulse 70 MON; Pulse Ox 97% ; kas2 21:02 BP 128 / 78 (auto/); kas2 21:02 Pulse 62 MON; Pulse Ox 97% ; kas2 21:17 BP 148 / 79 (auto/); kas2 21:17 Pulse 68 MON; Pulse Ox 98% ; kas2 21:32 BP 141 / 81 (auto/); kas2 21:32 Pulse 70 MON; Pulse Ox 98% ; kas2 21:47 BP 140 / 87 (auto/); kas2 21:47 Pulse 68 MON; Pulse Ox 96% ; kas2 22:02 BP 142 / 89 (auto/); kas2 22:02 Pulse 68 MON; Pulse Ox 97% ; kas2 22:17 BP 141 / 89 (auto/); kas2 22:17 Pulse 70 MON; Pulse Ox 97% ; kas2 22:32 BP 138 / 87 (auto/); kas2 22:32 Pulse 68 MON; Pulse Ox 97% ; kas2 22:47 Pulse 56 MON; Pulse Ox 96% ; kas2 22:47 BP 134 / 83 (auto/); kas2 23:02 BP 141 / 83 (auto/); kas2 23:02 Pulse 58 MON; Pulse Ox 96% ; kas2 23:17 BP 129 / 78 (auto/); kas2 23:17 Pulse 62 MON; Pulse Ox 96% ; kas2 23:32 BP 126 / 76 (auto/); kas2 23:32 Pulse 62 MON; Pulse Ox 96% ; kas2 04/12 01:14 BP 127 / 64; Pulse 72; Resp 18; Temp 97.9(O); Pulse Ox 99% on R/A; Pain 0/10; kas2 04/11 17:54 Body Mass Index 29.16 (97.52 kg, 182.88 cm) dd6 Vitals: 04/11 17:54 Log In Time: April 11, 2016 at 17:52. dd6 17:55 RN notified that patient meets Red Flag criteria. dd6 ED Course: 17:53 Patient visited by Ankit Rodriguez PCA. dd6 17:53 Patient moved to Waiting dd6 17:54 Delisa Nickerson is Private Physician. dd6 17:59 Barry Baltazar, JUWAN is Primary Nurse. jc4 17:59 Patient moved to 11 jc4 18:01 Triage Initiated dy 18:03 Lauryn Perkins MD is Attending Physician. sd1 18:05 logger all round on. Pulse ox on. NIBP on. kas2 18:14 Patient visited by Lauryn Perkins MD. sd1 18:17 Inserted peripheral IV: 16gauge IV in left antecubital area and blood collected. ml6 Patient tolerated the procedure well. Labs drawn. (by ED staff). Sent per order to lab. 18:44 Patient visited by Kalyani Johnson PCA. jl 18:55 Patient moved to OBSERVATION sd1 19:02 Raisa Smith,RN is Primary Nurse. kas2 19:04 Patient visited by Raisa Smith RN. kas2 19:08 portable chest Returned. EDMS 19:46 Attending Physician role handed off by Lauryn Perkins MD cs11 19:46 Paul Alonso DO is Attending Physician. cs11 19:53 Patient visited by Raisa Smith RN. kas2 21:07 Patient visited by Raisa Smith RN. kas2 22:10 Patient visited by Raisa Smith RN. kas2 23:22 Patient visited by Raisa Smith RN. kas2 04/12 00:20 Patient visited by Lizbeth Benton, Cigar Head Pegger. jlm 00:20 CARDIAC MARKER PANEL Sent. jlm 00:20 EKG done. (by ED staff). Reviewed by Paul Alonso DO. jlm 00:33 No procedures done that require assistance. kas2 00:34 Patient visited by Raisa Smith RN. [facility] 01:08 Kody Corrales is Referral Physician. cs11 01:15 Discontinued IV bleeding controlled, pressure dressing applied, No redness/swelling at [facility]. 01:17 Patient visited by Raisa Smith RN. [facility] 01:17 The patient / caregiver is instructed regarding the plan of care and ED course. kas2 06:05 EKG-ADULT Returned. EDMS 07:23 ECG WITH READING ER PHYS Returned. EDMS 07:50 T-Sheet-- Draft Copy was scanned into Re.[email or web address] and attached to record. seh 10:59 ECG/EKG was scanned into [employer] and attached to record. gb 11:32 T-Sheet-- Draft Copy was scanned into [employer] and attached to record. gb Order Results: Lab Order: Basic Metabolic Profile; SPEC'M 04/11/16 18:13 Test: GLUCOSE, FASTING; Value: 98; Range: 70-105; Units: MG/DL; Status: F Test: BLOOD UREA NITROGEN; Value: 18; Range: 7-18; Units: MG/DL; Status: F Test: CREATININE FOR GFR; Value: 1.01; Range: 0.70-1.30; Units: MG/DL; Status: F Test: GLOMERULAR FILTRATION RATE; Value: > 60.0; Range: >60; Status: F Test: SODIUM LEVEL; Value: 142; Range: 136-145; Units: MEQ/L; Status: F Test: POTASSIUM SERUM; Value: 4.1; Range: 3.5-5.1; Units: MEQ/L; Status: F Test: CHLORIDE LEVEL; Value: 105; Range: 98-107; Units: MEQ/L; Status: F Test: CARBON DIOXIDE LEVEL; Value: 32; Range: 21-32; Units: MEQ/L; Status: F Test: ANION GAP; Value: 5; Range: 8-16; Abnormal: Below low normal; Units: MEQ/L; Status: F Test: CALCIUM LEVEL; Value: 8.3; Range: 8.5-10.1; Abnormal: Below low normal; Units: MG/DL; Status: F Test Note: ; Units are mL/min/1.73 m2 Chronic Kidney Disease Staging per NKF: Stage I & II GFR >=60 Normal to Mildly Decreased Stage III GFR 30-59 Moderately Decreased Stage IV GFR 15-29 Severely Decreased Stage V GFR <15 Very Little GFR Left ESRD GFR <15 on PREPARATION ROOM WORKER Lab Order: CBC with Diff; SPEC'M 04/11/16 18:13 Test: WHITE BLOOD COUNT; Value: 8.0; Range: 4.0-10.0; Units: K/mm3; Status: F Test: RED BLOOD COUNT; Value: 5.03; Range: 4.30-6.10; Units: M/mm3; Status: F Test: HEMOGLOBIN; Value: 14.9; Range: 14.0-18.0; Units: g/dl; Status: F Test: HEMATOCRIT; Value: 42.7; Range: 42.0-52.0; Units: %; Status: F Test: MEAN CORPUSCULAR VOLUME; Value: 84.9; Range: 80.0-96.0; Units: fl; Status: F Test: MEAN CORPUSCULAR HEMOGLOBIN; Value: 29.5; Range: 27.0-33.0; Units: pg; Status: F Test: MEAN CORPUSCULAR HGB CONC; Value: 34.8; Range: 32.0-36.5; Units: g/dl; Status: F Test: RED CELL DISTRIBUTION WIDTH; Value: 12.1; Range: 11.5-14.5; Units: %; Status: F Test: PLATELET COUNT, AUTOMATED; Value: 162; Range: 150-450; Units: k/mm3; Status: F Test: NEUTROPHILS %; Value: 55.0; Range: 36.0-66.0; Units: %; Status: F Test: LYMPH %; Value: 33.6; Range: 24.0-44.0; Units: %; Status: F Test: MONO %; Value: 6.6; Range: 0.0-5.0; Abnormal: Above high normal; Units: %; Status: F Test: EOS %; Value: 2.4; Range: 0.0-3.0; Units: %; Status: F Test: BASO %; Value: 0.4; Range: 0.0-1.0; Units: %; Status: F Test: LARGE UNSTAINED CELL %; Value: 2.0; Range: 0.0-4.0; Units: %; Status: F Test: NEUTROPHILS #; Value: 4.4; Range: 1.8-7.7; Units: K/mm3; Status: F Test: LYMPH #; Value: 2.7; Range: 1.5-4.5; Units: K/mm3; Status: F Test: MONO #; Value: 0.5; Range: 0.0-0.8; Units: K/mm3; Status: F Test: EOS #; Value: 0.2; Range: 0.0-0.50; Units: K/mm3; Status: F Test: BASO #; Value: 0.0; Range: 0.0-0.2; Units: K/mm3; Status: F Test: LARGE UNSTAINED CELL #; Value: 0.2; Range: 0.0-0.4; Units: K/mm3; Status: F Lab Order: Cardiac Injury Profile; SPEC'M 04/11/16 18:13 Test: CPK CREATINE PHOSPHOKINASE; Value: 107; Range: 39-308; Units: U/L; Status: F Test: CK-MB VALUE MASS; Value: 1.2; Range: 0.0-3.6; Units: NG/ML; Status: F Test: MB/CK RELATIVE INDEX; Value: 1.12; Range: < OR =4; Status: F Test Note: ; DIAGNOSIS CRITERIA MMB ng/ml Relative Index (RI) NON-AMI < or = 5 N/A WASSERMAN ZONE > 5 < or = 4 AMI > 5 > 4 Lab Order: Prothrombin Time Profile\E\INR; SPEC'M 04/11/16 18:13 Test: PROTHROMBIN TIME; Value: 12.8; Range: 12.3-14.5; Units: SECONDS; Status: F Test: INR; Value: 0.95; Status: F Test Note: ; THERAPUTIC HUMAN INR VALUES INDICATIONS NORMAL RANGES PROPHYLAXIS/TREATMENT OF: VENOUS THROMBOSIS 2.0-3.0 PULMONARY EMBOLISM 2.0-3.0 PREVENTION OF SYSTEMIC EMBOLISM FROM: TISSUE HEART VALVES 2.0-3.0 ACUTE MYOCARDIAL INFARCTION 2.0-3.0 VALVULAR HEART DISEASE 2.0-3.0 ATRIAL FIBRILLATION 2.0-3.0 MECHANICAL VALVES(HIGH RISK) 2.5-3.5 RECURRENT MYOCARDIAL INFARCTION 2.5-3.5 Lab Order: Troponin; SPEC'M 04/11/16 18:13 Test: TROPONIN I; Value: < 0.02; Range: < 0.10; Units: NG/ML; Status: F Test Note: ; Troponin I Reference Interval for Siem[employer] [place] LOCI: 99th Percentile= 0.00-0.045 ng/ml Risk Stratification: <= 0.10 ng/ml Decreased Risk for Adverse Clinical Events. 0.10-1.50 ng/ml Increased Risk for Adverse Clinical Events. Evaluation of additional criterion and/or repeat testing in 2-6 hours is suggested to rule out myocardial damage. >= 1.50 ng/ml Indicative of Myocardial Injury. Lab Order: CARDIAC MARKER PANEL; SPEC'M 04/12/16 00:17 Test: CPK CREATINE PHOSPHOKINASE; Value: 84; Range: 39-308; Units: U/L; Status: F Test: CK-MB VALUE MASS; Value: 1.0; Range: 0.0-3.6; Units: NG/ML; Status: F Test: MB/CK RELATIVE INDEX; Value: 1.19; Range: < OR =4; Status: F Test: TROPONIN I; Value: < 0.02; Range: < 0.10; Units: NG/ML; Status: F Test Note: ; DIAGNOSIS CRITERIA MMB ng/ml Relative Index (RI) NON-AMI < or = 5 N/A WASSERMAN ZONE > 5 < or = 4 AMI > 5 > 4 Radiology Order: EKG-ADULT Test: EKG-ADULT REASON FOR EXAMINATION: Chest Pain; Stationary ECG Study; [facility] - ED; ; Test Date: 2016-04-11; Pat Name: SCOTTY ROSALES Department:; Room: -; 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:; : 1965 Requested By: Lauryn Perkins; Order Number: [id number] Reading MD: Robinson Delatorre; Measurements; Intervals [place]; Rate: 61 P: 36; CT: 154 QRS: 9; QRSD: 99 T: 14; QT: 379; QTc: 384; Interpretive Statements; SINUS RHYTHM WITH SINUS ARRHYTHMIA; POSSIBLE PRIOR INFERIOR INFARCT; SIMILAR TO PRIORS; Electronically Signed On 04-12-2016 5:51:52 EST by Robinson Delatorre; Radiology Order: portable chest Test: portable chest REASON FOR EXAMINATION: Chest Pain; Clinical: Chest pain .; ; Comparison: 01/05/2016 .; ; Findings:; The mediastinum and cardiac silhouette are stable and within normal limits for; portable technique. The lung yung are clear without acute consolidation,; effusion, or pneumothorax. Skeletal structures are intact.; ; Impression:; Stable. No acute cardiopulmonary process identified. 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 cs11 01:16 Discharge Assessment: patient administered narcotics - no. The following High Risk kas2 Discharge criteria are identified: None. Discharged to home ambulatory, with significant other. Condition: good Condition: stable Condition: improved. No special radiology studies were completed. Property :Personal belongings accompany Pt. 01:17 Patient left the ED. kas2 Signatures: Dispatcher [employer] EDMS Lauryn Perkins MD MD sd1 Barnhardt, Gloria, Reg Reg Scotty Paulino, RN RN Ankit Lr, MAILING MANAGER MAILING MANAGER dd6 Barry Baltazar RN RN ml6 Marlen Gramajo RN RN [email or web address] Paul Alonso, DO DO cs11 Kalyani Johnson, MAILING MANAGER MAILING MANAGER jlf Lizbeth Benton, Cigar Head Pegger Unit jlRaisa Stacy RN RN kas Lauryn Chavez Corrections: (The following items were deleted from the chart) 04/11 18:07 18:03 Home Meds: metoprolol tartrate 50 mg Oral tab 1 tab 2 times per day; dy dy Chart Complete MTDD
== END 2016-04-12 00:17 | disposition home or self-care (01) ==
LOC: M ED 17:53
DX: R07.9 Chest pain, unspecified (principal); K21.9 Gastro-esophageal reflux disease without esophagitis; E78.00 Pure hypercholesterolemia, unspecified; I10 Essential (primary) hypertension; Z79.82 Long term (current) use of aspirin; Z79.02 Long term (current) use of antithrombotics/antiplatelets; Z79.899 Other long term (current) drug therapy

== ENCOUNTER → 2016-06-24 | Outpatient (CLI) | payer BC ==
[2016-06-24 10:15] LABS: MEAN CORPUSCULAR HEMOGLOBIN 29.3 pg (27.0-33.0); MEAN CORPUSCULAR HGB CONC 34.5 g/dl (32.0-36.5); MEAN CORPUSCULAR VOLUME 84.9 fl (80.0-96.0); RED CELL DISTRIBUTION WIDTH 12.3 % (11.5-14.5); WHITE BLOOD COUNT 6.9 K/mm3 (4.0-10.0)
--- NOTE | 2016-06-24 10:25 | REP ---
Chest two views HISTORY: Hypertension Comparison: 04/11/2016 The lungs are clear. The heart is normal in size. The pulmonary vasculature is normal in appearance. The bony structure is intact. IMPRESSION: No acute disease. Signed by Max Hurley MD 06/24/2016 10:16 A
[2016-06-24 10:46] LABS: ALBUMIN/GLOBULIN RATIO 1.33 (1.00-1.93); ALKALINE PHOSPHATASE 80 U/L (45-117); ALT/SGPT 30 U/L (12-78); ANION GAP 5 MEQ/L (8-16); AST/SGOT 10 U/L (15-37); BILIRUBIN,TOTAL 2.2 MG/DL (0.2-1.0); BLOOD UREA NITROGEN 13 MG/DL (7-18); CALCIUM LEVEL 8.6 MG/DL (8.5-10.1); CARBON DIOXIDE LEVEL 31 MEQ/L (21-32); CHLORIDE LEVEL 104 MEQ/L (98-107); CHOLESTEROL LEVEL 108 MG/DL (<200); CREATININE FOR GFR 0.81 MG/DL (0.70-1.30); GLOMERULAR FILTRATION RATE > 60.0 (>60); GLUCOSE, FASTING 111 MG/DL (70-105); POTASSIUM SERUM 4.3 MEQ/L (3.5-5.1); SODIUM LEVEL 140 MEQ/L (136-145); TRIGLYCERIDES LEVEL 90 MG/DL (<150)
--- NOTE | 2016-06-25 07:09 | ECGEPIP ---
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
== END ==
LOC: M LAB 08:56
PROVIDERS: ATTEND Family Medicine
DX: Z00.00 Encounter for general adult medical examination without abnormal findings (principal)

== ENCOUNTER 2016-09-22 20:33 | Emergency (ER) | payer BC ==
[~2016-09-22] VITALS: Ht 182.9 cm; Wt 100.8 kg
[2016-09-22] MEDS ORDERED: PLAV75TA38 PO (20:45)
[2016-09-22] MEDS ORDERED: ASPI32ECTA PO (20:45)
[2016-09-22] MEDS ORDERED: LIPI80TA PO (20:45)
[2016-09-22] MEDS ORDERED: METO-207 PO (20:45)
[2016-09-22] MEDS ORDERED: PRIL20CA9 PO (20:45)
[2016-09-22 22:03] VITALS: BP 133/95
--- NOTE | 2016-09-22 22:40 | REPUSA ---
Venous Doppler ultrasound Clinical history: pain, swelling. Comparison: none. Findings: The left common femoral, superficial femoral, popliteal, and other deep venous structures c ompress normally and demonstrate normal color Doppler flow. Normal venous waveforms with augmentation are seen. Impression: No evidence of deep vein thrombosis in the left femoral popliteal vein the system.
== END 2016-09-22 22:04 | disposition home or self-care (01) ==
LOC: M ED 22:00
DX: I80.02 Phlebitis and thrombophlebitis of superficial vessels of left lower extremity (principal)

== ENCOUNTER → 2016-11-25 | Outpatient (CLI) | payer BC ==
[~2016-11-25] MED LIST: ASPI325T24 PO; ASPI81TA85 PO; LIPI80TA PO; METO1TAB32 PO; METO1TAB7 PO; PLAV1TAB2 PO; PRAV40TA2 PO; PRIL20CA9 PO
[2016-11-25 15:47] LABS: MEAN CORPUSCULAR HEMOGLOBIN 30.3 pg (27.0-33.0); MEAN CORPUSCULAR HGB CONC 35.2 g/dl (32.0-36.5); MEAN CORPUSCULAR VOLUME 85.9 fl (80.0-96.0); RED CELL DISTRIBUTION WIDTH 12.5 % (11.5-14.5); WHITE BLOOD COUNT 7.7 K/mm3 (4.0-10.0)
[2016-11-25 16:24] LABS: ALBUMIN/GLOBULIN RATIO 1.14 (1.00-1.93); ALKALINE PHOSPHATASE 82 U/L (45-117); ALT/SGPT 28 U/L (12-78); ANION GAP 7 MEQ/L (8-16); AST/SGOT 14 U/L (15-37); BILIRUBIN,TOTAL 1.9 MG/DL (0.2-1.0); BLOOD UREA NITROGEN 15 MG/DL (7-18); CALCIUM LEVEL 8.2 MG/DL (8.5-10.1); CARBON DIOXIDE LEVEL 31 MEQ/L (21-32); CHLORIDE LEVEL 106 MEQ/L (98-107); CHOLESTEROL LEVEL 149 MG/DL (<200); CREATININE FOR GFR 0.96 MG/DL (0.70-1.30); GLOMERULAR FILTRATION RATE > 60.0 (>56); GLUCOSE, FASTING 93 MG/DL (70-105); POTASSIUM SERUM 3.8 MEQ/L (3.5-5.1); SODIUM LEVEL 144 MEQ/L (136-145); TOTAL PROTEIN 7.5 GM/DL (6.4-8.2); TRIGLYCERIDES LEVEL 135 MG/DL (<150)
--- NOTE | 2016-11-25 20:37 | REP ---
Clinical: Hypertension . Comparison: 06/24/2016. Technique: PA and lateral. Findings: The mediastinum and cardiac silhouette are normal. The lung yung are clear and without acute consolidation, effusion, or pneumothorax. The skeletal structures are intact and normal. Impression: 1. No acute cardiopulmonary process. Signed by Garo Scanlon MD 11/25/2016 08:28 P
--- NOTE | 2016-11-25 20:50 | ECGEPIP ---
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 Electronically Signed On 11-25-2016 20:50:11 EDT by Scotty Sexton
== END ==
LOC: M LAB 14:23
PROVIDERS: ATTEND Family Medicine
DX: I10 Essential (primary) hypertension (principal); R94.31 Abnormal electrocardiogram [ECG] [EKG]

== ENCOUNTER 2016-12-08 17:41 | Emergency (ER) | payer BC ==
[~2016-12-08] VITALS: Ht 182.9 cm; Wt 114.5 kg
[~2016-12-08 17:41] MED LIST changes: -ASPI81TA85 PO; -METO1TAB32 PO; -PRAV40TA2 PO
[2016-12-08] MEDS ORDERED: METO1TAB32 PO (17:53)
[2016-12-08] MEDS ORDERED: ASPI81TA85 PO (17:53)
[2016-12-08] MEDS ORDERED: PRAV40TA2 PO (17:53)
[2016-12-08 18:23] LABS: BASO % 0.6 % (0.0-1.0); EOS # 0.1 K/mm3 (0.0-0.50); EOS % 1.2 % (0.0-3.0); LARGE UNSTAINED CELL # 0.1 K/mm3 (0.0-0.4); LARGE UNSTAINED CELL % 1.6 % (0.0-4.0); LYMPH # 2.2 K/mm3 (1.5-4.5); LYMPH % 24.8 % (24.0-44.0); MEAN CORPUSCULAR HEMOGLOBIN 30.9 pg (27.0-33.0); MEAN CORPUSCULAR HGB CONC 35.8 g/dl (32.0-36.5); MEAN CORPUSCULAR VOLUME 86.4 fl (80.0-96.0); MONO # 0.5 K/mm3 (0.0-0.8); MONO % 6.1 % (0.0-5.0); NEUTROPHILS # 5.7 K/mm3 (1.8-7.7); NEUTROPHILS % 65.7 % (36.0-66.0); PLATELET COUNT, AUTOMATED 186 k/mm3 (150-450); RED CELL DISTRIBUTION WIDTH 12.6 % (11.5-14.5); WHITE BLOOD COUNT 8.7 K/mm3 (4.0-10.0)
[2016-12-08] MEDS ORDERED: ONDANSETRON 4MG/2ML VIAL (J2405) IV ONE (18:30)
[2016-12-08 18:49] LABS: ANION GAP 2 MEQ/L (8-16); BLOOD UREA NITROGEN 17 MG/DL (7-18); CALCIUM LEVEL 8.9 MG/DL (8.5-10.1); CARBON DIOXIDE LEVEL 34 MEQ/L (21-32); CHLORIDE LEVEL 103 MEQ/L (98-107); CREATININE FOR GFR 0.96 MG/DL (0.70-1.30); GLOMERULAR FILTRATION RATE > 60.0 (>56); GLUCOSE, FASTING 112 MG/DL (70-105); SODIUM LEVEL 139 MEQ/L (136-145)
[2016-12-08 18:56] LABS: POTASSIUM SERUM 4.9 MEQ/L (3.5-5.1)
[2016-12-08] MEDS ORDERED: ASPIRIN 325 MG TAB PO ONE (19:00)
[2016-12-08] MEDS ORDERED: NITROGLYCERIN 0.4 MG SUBL TABLET SL PRN (19:00)
[2016-12-08 19:36] LABS: ALBUMIN/GLOBULIN RATIO 1.11 (1.00-1.93); ALKALINE PHOSPHATASE 79 U/L (45-117); ALT/SGPT 26 U/L (12-78); AST/SGOT 16 U/L (15-37); BILIRUBIN,DIRECT 0.2 MG/DL (0.0-0.2); BILIRUBIN,TOTAL 1.5 MG/DL (0.2-1.0); TOTAL PROTEIN 7.6 GM/DL (6.4-8.2)
[2016-12-08 19:37] LABS: INR 0.93
--- NOTE | 2016-12-08 19:42 | ECGEPIP ---
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
--- NOTE | 2016-12-08 19:43 | ECGEPIP ---
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
--- NOTE | 2016-12-08 19:46 | ECGEPIP ---
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
[2016-12-08] MEDS ORDERED: LABETALOL HCL 100 MG/20 ML VIAL IV STA (19:52)
[2016-12-08 20:09] VITALS: BP 160/97
[2016-12-08 23:01] VITALS: BP 134/94
--- NOTE | 2016-12-09 06:02 | ECGEPIP ---
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
== END 2016-12-08 23:20 | disposition home or self-care (01) ==
LOC: M ED 17:41
DX: R07.89 Other chest pain (principal); I10 Essential (primary) hypertension; E78.5 Hyperlipidemia, unspecified; I25.9 Chronic ischemic heart disease, unspecified; Z95.1 Presence of aortocoronary bypass graft; Z95.5 Presence of coronary angioplasty implant and graft; Z82.49 Family history of ischemic heart disease and other diseases of the circulatory system; Z79.899 Other long term (current) drug therapy; Z79.82 Long term (current) use of aspirin
CPT/HCPCS: 36415; 80048; 80076; 82550; 82553; 85025; 85610; 93005; 93041; 94760; 96374; 96375; 99285; J2405

== ENCOUNTER → 2017-09-07 | Outpatient (CLI) | payer OTHER ==
[2017-09-07 10:06] LABS: HEMATOCRIT 45.5 % (42.0-52.0); HEMOGLOBIN 15.7 g/dl (13.5-17.5); MEAN CORPUSCULAR HEMOGLOBIN 28.6 pg (27.0-33.0); MEAN CORPUSCULAR HGB CONC 34.5 g/dl (32.0-36.5); MEAN CORPUSCULAR VOLUME 82.9 fl (80.0-96.0); PLATELET COUNT, AUTOMATED 181 10^3/uL (150-450); RED BLOOD COUNT 5.49 10^6/uL (4.30-6.10); RED CELL DISTRIBUTION WIDTH 12.1 % (11.5-14.5); WHITE BLOOD COUNT 6.3 10^3/uL (4.0-10.0)
[2017-09-07 10:40] LABS: ALBUMIN/GLOBULIN RATIO 1.11 (1.00-1.93); ALKALINE PHOSPHATASE 107 U/L (45-117); ALT/SGPT 42 U/L (12-78); ANION GAP 6 MEQ/L (8-16); AST/SGOT 15 U/L (7-37); BLOOD UREA NITROGEN 15 MG/DL (7-18); CALCIUM LEVEL 8.4 MG/DL (8.5-10.1); CARBON DIOXIDE LEVEL 31 MEQ/L (21-32); CHLORIDE LEVEL 104 MEQ/L (98-107); GLOMERULAR FILTRATION RATE > 60.0 (>56); GLUCOSE, FASTING 127 MG/DL (70-100); POTASSIUM SERUM 3.9 MEQ/L (3.5-5.1); PROSTATIC SPECIFIC AG MONITOR 0.43 NG/ML (< 4.0); SODIUM LEVEL 141 MEQ/L (136-145); TOTAL PROTEIN 7.6 GM/DL (6.4-8.2)
[2017-09-07 10:44] LABS: ESTIMATED AVERAGE GLUCOSE 123 MG/DL (60-110); HEMOGLOBIN A1c 5.9 %
[2017-09-07 10:58] LABS: TESTOSTERONE 500 NG/DL (241-827)
== END ==
LOC: M LAB 09:11
DX: I10 Essential (primary) hypertension (principal); R53.83 Other fatigue
CPT/HCPCS: 84403

== ENCOUNTER → 2017-12-29 | Outpatient (CLI) | payer OTHER ==
[2017-12-29 07:01] LABS: HEMATOCRIT 44.4 % (42.0-52.0); HEMOGLOBIN 15.2 g/dl (13.5-17.5); MEAN CORPUSCULAR HGB CONC 34.2 g/dl (32.0-36.5); MEAN CORPUSCULAR VOLUME 84.6 fl (80.0-96.0); PLATELET COUNT, AUTOMATED 179 10^3/uL (150-450); RED BLOOD COUNT 5.25 10^6/uL (4.30-6.10); RED CELL DISTRIBUTION WIDTH 12.7 % (11.5-14.5); WHITE BLOOD COUNT 7.6 10^3/uL (4.0-10.0)
[2017-12-29 07:35] LABS: ALBUMIN 3.9 GM/DL (3.2-5.2); ALBUMIN/GLOBULIN RATIO 1.18 (1.00-1.93); ALKALINE PHOSPHATASE 90 U/L (45-117); ALT/SGPT 54 U/L (12-78); ANION GAP 9 MEQ/L (8-16); AST/SGOT 20 U/L (7-37); BILIRUBIN,TOTAL 1.1 MG/DL (0.2-1.0); BLOOD UREA NITROGEN 19 MG/DL (7-18); CALCIUM LEVEL 8.7 MG/DL (8.5-10.1); CARBON DIOXIDE LEVEL 31 MEQ/L (21-32); CHLORIDE LEVEL 104 MEQ/L (98-107); CHOLESTEROL LEVEL 123 MG/DL (<200); CHOLESTEROL RISK RATIO 3.967 (<5); CREATININE FOR GFR 0.97 MG/DL (0.70-1.30); GLOMERULAR FILTRATION RATE > 60.0 (>56); GLUCOSE, FASTING 132 MG/DL (70-100); HDL CHOLESTEROL 31 MG/DL (>40); LDL CHOLESTEROL 45 MG/DL (<100); NON-HDL-C 92 MG/DL; POTASSIUM SERUM 3.9 MEQ/L (3.5-5.1); PROSTATIC SPECIFIC AG MONITOR 0.41 NG/ML (< 4.0); SODIUM LEVEL 144 MEQ/L (136-145); TOTAL PROTEIN 7.2 GM/DL (6.4-8.2); TRIGLYCERIDES LEVEL 237 MG/DL (<150)
== END ==
LOC: M LAB 06:07
DX: D64.9 Anemia, unspecified (principal); R53.83 Other fatigue; R10.11 Right upper quadrant pain
CPT/HCPCS: 84443

== ENCOUNTER 2017-12-31 22:19 | Emergency (ER) | payer OTHER, SELFPAY ==
[2017-12-31 23:00] LABS: BASO # 0.1 10^3/uL (0.0-0.2); BASO % 0.6 % (0.0-1.0); EOS # 0.3 10^3/uL (0.0-0.50); EOS % 3.7 % (0.0-3.0); HEMATOCRIT 44.6 % (42.0-52.0); HEMOGLOBIN 15.4 g/dl (13.5-17.5); IMMATURE GRANULOCYTE % 0.5 % (0-3.0); LYMPH # 2.8 10^3/uL (1.5-4.5); LYMPH % 32.6 % (24.0-44.0); MEAN CORPUSCULAR HEMOGLOBIN 29.3 pg (27.0-33.0); MEAN CORPUSCULAR HGB CONC 34.5 g/dl (32.0-36.5); MONO # 0.7 10^3/uL (0.0-0.8); MONO % 7.8 % (0.0-5.0); NEUTROPHILS # 4.6 10^3/uL (1.8-7.7); NEUTROPHILS % 54.8 % (36.0-66.0); PLATELET COUNT, AUTOMATED 181 10^3/uL (150-450); RED BLOOD COUNT 5.25 10^6/uL (4.30-6.10); RED CELL DISTRIBUTION WIDTH 12.4 % (11.5-14.5); WHITE BLOOD COUNT 8.4 10^3/uL (4.0-10.0)
[2017-12-31 23:30] LABS: INR 0.96; PROTHROMBIN TIME 12.9 SECONDS (12.1-14.4)
[2017-12-31 23:31] LABS: PARTIAL THROMBOPLASTIN TIME 28.6 SECONDS (25.4-37.6)
[2017-12-31] MEDS ORDERED: ISOVUE-370 76% 100ML VIAL (Q9967) As Ordered (23:53)
[2017-12-31 23:59] LABS: ALBUMIN 3.8 GM/DL (3.2-5.2); ALKALINE PHOSPHATASE 97 U/L (45-117); ALT/SGPT 67 U/L (12-78); ANION GAP 5 MEQ/L (8-16); AST/SGOT 44 U/L (7-37); BILIRUBIN,DIRECT 0.2 MG/DL (0.0-0.2); BILIRUBIN,TOTAL 1.2 MG/DL (0.2-1.0); BLOOD UREA NITROGEN 16 MG/DL (7-18); CALCIUM LEVEL 7.7 MG/DL (8.5-10.1); CARBON DIOXIDE LEVEL 29 MEQ/L (21-32); CHLORIDE LEVEL 108 MEQ/L (98-107); CPK CREATINE PHOSPHOKINASE 175 U/L (39-308); CREATININE FOR GFR 1.13 MG/DL (0.70-1.30); GLOMERULAR FILTRATION RATE > 60.0 (>56); GLUCOSE, FASTING 155 MG/DL (70-100); LIPASE 170 U/L (73-393); NT-PRO BNP 71 PG/ML (<125); POTASSIUM SERUM 3.7 MEQ/L (3.5-5.1); SODIUM LEVEL 142 MEQ/L (136-145); TOTAL PROTEIN 7.6 GM/DL (6.4-8.2); TROPONIN I < 0.02 NG/ML (< 0.10)
== END 2018-01-01 02:06 | disposition home or self-care (01) ==
LOC: M ED 01-01 02:06
DX: R10.9 Unspecified abdominal pain (principal); R11.0 Nausea; I10 Essential (primary) hypertension; E78.5 Hyperlipidemia, unspecified; I25.2 Old myocardial infarction; Z79.82 Long term (current) use of aspirin; Z79.02 Long term (current) use of antithrombotics/antiplatelets
CPT/HCPCS: Q9967

== ENCOUNTER → 2017-12-31 | Outpatient (CLI) | payer OTHER | LOC: M RAD 09:29 | DX: R10.11 Right upper quadrant pain (principal) | CPT/HCPCS: 76705 ==

== ENCOUNTER → 2018-01-11 | Outpatient (CLI) | payer OTHER ==
[~2018-01-11] MED LIST changes: -ASPI325T24 PO; +E-Z-GAS II EFFERVESCENT PACKET (SODIUM BICARB./CITRIC ACID/SIMETHICONE) As Ordered; +E-Z-HD 98% w/w 340GM SUSP BTL As Ordered; +E-Z-PAQUE 96% w/w SUSP 176GM BTL As Ordered; -LIPI80TA PO; -METO1TAB7 PO; -PLAV1TAB2 PO; -PRIL20CA9 PO
== END ==
LOC: M RAD 08:37
DX: R10.9 Unspecified abdominal pain (principal); K21.9 Gastro-esophageal reflux disease without esophagitis
CPT/HCPCS: 74241

== ENCOUNTER → 2018-01-21 | Outpatient (CLI) | payer OTHER | LOC: M LRY 12:28 | DX: R05 Cough (principal) | CPT/HCPCS: 71046 ==

== ENCOUNTER → 2018-01-21 | Outpatient (REF) | payer OTHER | LOC: M SFHCLERA 12:31 | DX: J02.9 Acute pharyngitis, unspecified (principal) ==

== ENCOUNTER 2018-03-12 06:40 | Day surgery (SDC) | payer OTHER ==
[~2018-03-12] VITALS: Ht 182.9 cm; Wt 115.2 kg
[~2018-03-12 06:40] MED LIST changes: +AMLO25TA PO; +ASPI325T25 PO; +ASPI81TA85 PO; -E-Z-GAS II EFFERVESCENT PACKET (SODIUM BICARB./CITRIC ACID/SIMETHICONE) As Ordered; -E-Z-HD 98% w/w 340GM SUSP BTL As Ordered; -E-Z-PAQUE 96% w/w SUSP 176GM BTL As Ordered; +EZET10TA PO; +FURO40TA2 PO; +LIPI80TA PO; +LOSA50TA5 PO; +METO1TAB32 PO; +METO1TAB33 PO; +METO1TAB7 PO; +NITR0.4S14 SL; +OMEP20CA3 PO; +PLAV1TAB2 PO; +POTA8CAP4 PO; +PRAL1INJ SC; +PRAV40TA2 PO; +PRIL20CA9 PO; +SERT50TA PO; +XANA0.5T PO
[2018-03-12] MEDS ORDERED: NS 1,000 ML IV ONE (06:45)
[2018-03-12] MEDS ORDERED: PROPOFOL 200 MG/20 ML VIAL As Ordered ONE ×2 (07:34→08:00)
[2018-03-12] MEDS ORDERED: LIDOCAINE 2% INJ 100 MG/5 ML SDV (FOR ANES.) As Ordered ONE (07:34)
--- NOTE | 2018-03-12 07:53 | ROOR ---
Patient Name: Fadumo Calloway Procedure Date: 03/12/2018 7:36 AM Date of : 1965 Age: 52 Room: [facility], [facility] Gender: Male Note Status: Finalized Procedure: Upper Endoscopy + Biopsies Indications: Heartburn, Exclusion of Pond's esophagus Providers: Moisés Velasco MD Referring MD: JEZ GALAVIZ MD Requesting Provider: Medicines: Monitored Anesthesia Care Complications: No immediate complications. Procedure: Pre-Anesthesia Assessment: - The heart rate, respiratory rate, oxygen saturations, blood pressure, adequacy of pulmonary ventilation, and response to care were monitored throughout the procedure. The Endoscope was introduced through the mouth, and advanced to the second part of duodenum. The upper GI endoscopy was accomplished without difficulty. The patient tolerated the procedure well. Findings: The Z-line was irregular and was found 45 cm from the incisors. Multiple biopsies were obtained with cold forceps for evaluation to rule out Pond's Esophagus randomly at the gastroesophageal junction. A small hiatal hernia was present. No other significant abnormalities were identified in a careful examination of the stomach. The exam of the duodenum was otherwise normal. Impression: - Z-line irregular, 45 cm from the incisors. - Small hiatal hernia. - Multiple biopsies were obtained at the gastroesophageal junction. - The examination was otherwise normal. Recommendation: - Patient has a contact number available for emergencies. The signs and symptoms of potential delayed complications were discussed with the patient. Return to normal activities tomorrow. Written discharge instructions were provided to the patient. - High fiber diet. - Discharge patient to home. - Continue present medications. - Await pathology results. - Telephone GI clinic for pathology results in 1 week. - Return to referring physician. - The findings and recommendations were discussed with the patient's family. Moisés Velasco MD Moisés Velasco MD 03/12/2018 7:52:54 AM This report has been signed electronically. Number of Addenda: 0 Note Initiated On: 03/12/2018 7:36 AM Estimated Blood Loss: Estimated blood loss: none.
--- NOTE | 2018-03-12 08:09 | ROOR ---
Patient Name: Fadumo Calloway Procedure Date: 03/12/2018 7:37 AM Date of : 1965 Age: 52 Room: [facility] Gender: Male Note Status: Finalized Procedure: Total Colonoscopy to Cecum + Cold Snare Polypectomy Indications: Screening for colorectal malignant neoplasm Providers: Moisés Velasco MD Referring MD: JEZ GALAVIZ MD Requesting Provider: Medicines: Monitored Anesthesia Care Complications: No immediate complications. Procedure: Pre-Anesthesia Assessment: - The heart rate, respiratory rate, oxygen saturations, blood pressure, adequacy of pulmonary ventilation, and response to care were monitored throughout the procedure. The Colonoscope was introduced through the anus and advanced to the cecum, identified by appendiceal orifice and ileocecal valve. The colonoscopy was performed without difficulty. The patient tolerated the procedure well. The quality of the bowel preparation was excellent. Findings: The perianal and digital rectal examinations were normal. Non-bleeding internal hemorrhoids were found during retroflexion. The hemorrhoids were small and Grade I (internal hemorrhoids that do not prolapse). Scattered small-mouthed diverticula were found in the recto-sigmoid colon, sigmoid colon and descending colon. A medium polyp was found in the hepatic flexure. The polyp was sessile. The polyp was removed with a cold snare. Resection and retrieval were complete. The exam was otherwise without abnormality on direct and retroflexion views. Impression: - Non-bleeding internal hemorrhoids. - Diverticulosis in the recto-sigmoid colon, in the sigmoid colon and in the descending colon. - One medium polyp at the hepatic flexure, removed with a cold snare. Resected and retrieved. - The examination was otherwise normal on direct and retroflexion views. - The exam was otherwise normal to the cecum. Recommendation: - Patient has a contact number available for emergencies. The signs and symptoms of potential delayed complications were discussed with the patient. Return to normal activities tomorrow. Written discharge instructions were provided to the patient. - High fiber diet. - Discharge patient to home. - Await pathology results. - Telephone GI clinic for pathology results in 1 week. - Check Portal Online for Path Results.([email or web address]) - Repeat colonoscopy for surveillance based on pathology results. - The findings and recommendations were discussed with the patient's family. Moisés Velasco MD Moisés Velasco MD 03/12/2018 8:09:18 AM This report has been signed electronically. Number of Addenda: 0 Note Initiated On: 03/12/2018 7:37 AM Estimated Blood Loss: Estimated blood loss: none.
[2018-03-12 08:34] VITALS: BP 135/88
== END 2018-03-12 08:36 | disposition home or self-care (01) ==
LOC: M OPP 06:40
PROVIDERS: ATTEND Internal Medicine Gastroenterology
DX: K64.0 First degree hemorrhoids (principal); K57.30 Diverticulosis of large intestine without perforation or abscess without bleeding; D12.3 Benign neoplasm of transverse colon; K22.8 Other specified diseases of esophagus; K44.9 Diaphragmatic hernia without obstruction or gangrene; R12 Heartburn; Z12.11 Encounter for screening for malignant neoplasm of colon

== ENCOUNTER → 2018-06-06 | Outpatient (CLI) | payer OTHER ==
--- NOTE | 2018-06-06 10:17 | REP ---
PA and lateral chest: Comparison is 05/06/2009. The lung yung are clear. The cardiac size is normal. The marichuy, mediastinum, and skeletal structures are unremarkable. Impression: Negative PA and lateral chest. Electronically Signed by Jersey Boyce MD 06/06/2018 10:09 A
== END ==
LOC: M RAD 07:23
DX: J18.9 Pneumonia, unspecified organism (principal)

== ENCOUNTER → 2018-06-23 | Outpatient (REF) | payer OTHER ==
[2018-06-23 19:16] LABS: BASO % 0.4 % (0.0-1.0); EOS # 0.1 10^3/uL (0.0-0.50); EOS % 1.5 % (0.0-3.0); HEMATOCRIT 45.1 % (42.0-52.0); HEMOGLOBIN 15.6 g/dl (13.5-17.5); LYMPH # 2.9 10^3/uL (1.5-4.5); LYMPH % 37.4 % (24.0-44.0); MEAN CORPUSCULAR HEMOGLOBIN 29.3 pg (27.0-33.0); MEAN CORPUSCULAR HGB CONC 34.6 g/dl (32.0-36.5); MEAN CORPUSCULAR VOLUME 84.6 fl (80.0-96.0); MONO # 0.5 10^3/uL (0.0-0.8); MONO % 6.3 % (0.0-5.0); NEUTROPHILS # 4.2 10^3/uL (1.8-7.7); NEUTROPHILS % 53.9 % (36.0-66.0); PLATELET COUNT, AUTOMATED 235 10^3/uL (150-450); RED BLOOD COUNT 5.33 10^6/uL (4.30-6.10); WHITE BLOOD COUNT 7.8 10^3/uL (4.0-10.0)
[2018-06-23 19:27] LABS: HEMOGLOBIN A1c 6.3 %
[2018-06-23 19:50] LABS: ALBUMIN 4.1 GM/DL (3.2-5.2); ALT/SGPT 60 U/L (12-78); BLOOD UREA NITROGEN 12 MG/DL (7-18); CARBON DIOXIDE LEVEL 29 MEQ/L (21-32); CHLORIDE LEVEL 106 MEQ/L (98-107); CHOLESTEROL LEVEL 151 MG/DL (<200); CREATININE FOR GFR 1.03 MG/DL (0.70-1.30); FREE T4 1.18 NG/DL (0.76-1.46); GLOMERULAR FILTRATION RATE > 60.0 (>56); GLUCOSE, FASTING 141 MG/DL (70-100); HDL CHOLESTEROL 20 MG/DL (>40); MAGNESIUM LEVEL 2.1 MG/DL (1.8-2.4); NON-HDL-C 131 MG/DL; POTASSIUM SERUM 3.5 MEQ/L (3.5-5.1); SODIUM LEVEL 142 MEQ/L (136-145); TOTAL PROTEIN 7.8 GM/DL (6.4-8.2); TRIGLYCERIDES LEVEL 647 MG/DL (<150)
== END ==
LOC: M SFHCPLAZ 15:00
PROVIDERS: ATTEND Nurse Practitioner Family
DX: I10 Essential (primary) hypertension (principal); R05 Cough; E78.5 Hyperlipidemia, unspecified

== ENCOUNTER → 2018-06-25 | Outpatient (CLI) | payer OTHER ==
[~2018-06-25] MED LIST changes: +ASPI-255 PO; -ASPI325T25 PO; +ISOVUE-370 76% 125ML VIAL (Q9967 PER ML) As Ordered ONE; +SERT-141 PO; -SERT50TA PO
--- NOTE | 2018-06-25 16:25 | REP ---
CT pulmonary angiogram: With IV contrast. History: Shortness of breath Comparison studies: Comparison chest x-ray June 06, 2018. Contrast dose: 75 ML of Isovue [address] technique: Helical scanning is acquired and overlapping 1.5 mm and contiguous 3 mm axial images are reformatted. In addition, maximum intensity projection and multiplanar re-formation images are generated in sagittal and coronal imaging projections. CT pulmonary angiographic findings: There is good opacification of the pulmonary arterial tree. There is no CT evidence of pulmonary embolism. There is mild left anterior descending vascular calcification in the coronary artery distribution. No pleural or pericardial effusion is seen. No adrenal lesion is seen. The visualized upper abdominal structures are unremarkable. Mild diffuse fatty infiltration of the liver is seen. No hilar or mediastinal mass or adenopathy is observed. The thoracic aorta enhances homogeneously and is normal in course and caliber. There is a calcified granuloma in the left lower lobe on the dome of the diaphragm. No significant pulmonary nodule is seen. No infiltrate is noted. No bony destructive lesion is appreciated. No acute bony abnormality is seen. There is mild wedging one of the mid-thoracic vertebral bodies appears old. Impression: No CT evidence of pulmonary embolus. Fatty infiltration of the liver. Vascular calcification including left coronary artery vascular calcification. Otherwise no acute disease. Electronically Signed by Lauro Newman MD 06/25/2018 04:16 P
== END ==
LOC: M RAD 15:33
PROVIDERS: ATTEND Nurse Practitioner Family
DX: I25.811 Atherosclerosis of native coronary artery of transplanted heart without angina pectoris (principal); R06.02 Shortness of breath; K76.0 Fatty (change of) liver, not elsewhere classified
CPT/HCPCS: 71275; Q9967

== ENCOUNTER 2018-07-13 18:03 | Emergency (ER) | payer MEDICAID, OTHER ==
[~2018-07-13] VITALS: Ht 182.9 cm; Wt 115.9 kg
[~2018-07-13 18:03] MED LIST changes: -ISOVUE-370 76% 125ML VIAL (Q9967 PER ML) As Ordered ONE
--- NOTE | 2018-07-13 18:46 | REP ---
Chest two views HISTORY: Chest pain Comparison: 06/06/2018 The lungs are clear. The heart is normal in size. The pulmonary vasculature is normal in appearance. The bony structure is intact. IMPRESSION: No acute disease. Electronically Signed by Max Hurley MD 07/13/2018 06:37 P
[2018-07-13 19:01] LABS: BASO % 0.4 % (0.0-1.0); EOS # 0.2 10^3/uL (0.0-0.50); EOS % 1.7 % (0.0-3.0); HEMATOCRIT 44.1 % (42.0-52.0); LYMPH # 2.7 10^3/uL (1.5-4.5); LYMPH % 27.9 % (24.0-44.0); MEAN CORPUSCULAR HEMOGLOBIN 28.8 pg (27.0-33.0); MEAN CORPUSCULAR VOLUME 84.8 fl (80.0-96.0); MONO # 0.8 10^3/uL (0.0-0.8); MONO % 8.5 % (0.0-5.0); NEUTROPHILS # 5.9 10^3/uL (1.8-7.7); NEUTROPHILS % 60.9 % (36.0-66.0); PLATELET COUNT, AUTOMATED 193 10^3/uL (150-450); WHITE BLOOD COUNT 9.7 10^3/uL (4.0-10.0)
[2018-07-13] MEDS ORDERED: methylPREDNISolone INJ 125 MG/2 ML VIAL (J2930) IV ONE (19:15)
[2018-07-13] MEDS ORDERED: IPRATROPIUM 0.5MG/ALBUTEROL 2.5MG INH SOL UD 3ML (DUONEB)(J7620) NEB ONE (19:15)
[2018-07-13 19:16] LABS: INR 0.96; PROTHROMBIN TIME 12.9 SECONDS (12.1-14.4)
[2018-07-13 19:17] LABS: PARTIAL THROMBOPLASTIN TIME 27.5 SECONDS (25.4-37.6)
[2018-07-13] MEDS ORDERED: SERT-138 PO (19:17)
[2018-07-13] MEDS ORDERED: LORA0.5T11 PO (19:17)
[2018-07-13] MEDS ORDERED: LOSA50TA88 PO (19:18)
[2018-07-13] MEDS ORDERED: FLUT1INH3 PO (19:18)
[2018-07-13 19:30] LABS: ALT/SGPT 53 U/L (12-78); BILIRUBIN,DIRECT 0.2 MG/DL (0.0-0.2); BILIRUBIN,TOTAL 1.2 MG/DL (0.2-1.0); BLOOD UREA NITROGEN 17 MG/DL (7-18); CALCIUM LEVEL 8.6 MG/DL (8.5-10.1); CARBON DIOXIDE LEVEL 28 MEQ/L (21-32); CHLORIDE LEVEL 106 MEQ/L (98-107); CPK CREATINE PHOSPHOKINASE 81 U/L (39-308); CREATININE FOR GFR 1.01 MG/DL (0.70-1.30); FREE T4 1.08 NG/DL (0.76-1.46); GLOMERULAR FILTRATION RATE > 60.0 (>56); GLUCOSE, FASTING 112 MG/DL (70-100); LIPASE 208 U/L (73-393); POTASSIUM SERUM 3.9 MEQ/L (3.5-5.1); SODIUM LEVEL 140 MEQ/L (136-145); TOTAL PROTEIN 7.3 GM/DL (6.4-8.2); TROPONIN I < 0.02 NG/ML (< 0.10)
[2018-07-13] MEDS ORDERED: KETOROLAC 30 MG/ML VIAL (J1885) IV ONE (20:00)
[2018-07-13] MEDS ORDERED: MEDR4PAK PO (20:04)
[2018-07-13 20:23] VITALS: BP 143/85
--- NOTE | 2018-07-13 21:44 | ECGEPIP ---
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
== END 2018-07-13 20:24 | disposition home or self-care (01) ==
LOC: M ED 18:03
DX: R07.89 Other chest pain (principal); J45.901 Unspecified asthma with (acute) exacerbation; I11.9 Hypertensive heart disease without heart failure; I25.10 Atherosclerotic heart disease of native coronary artery without angina pectoris; K21.9 Gastro-esophageal reflux disease without esophagitis; Z95.5 Presence of coronary angioplasty implant and graft
CPT/HCPCS: 71046; 80048; 80076; 82550; 82553; 83690; 84439; 84443; 85025; 85610; 85730; 93005; 93041; 94760; 96374; 96375; 99285; J1885; J2930

== ENCOUNTER → 2018-07-16 | Outpatient (CLI) | payer OTHER ==
[~2018-07-16] MED LIST changes: +FLUT1INH3 PO; +LORA0.5T11 PO; +LOSA50TA88 PO; +MEDR4PAK PO; +SERT-138 PO
--- NOTE | 2018-07-16 10:53 | REP ---
Digital diagnostic bilateral mammography, 3-D tomography, CAD, and focused left breast sonography: History: Breast mass in a male. The patient reports a lump in the left breast times many years, recently noted on clinician exam. He relates a history of numerous lipomas. Mammographic findings: A skin marker is affixed to the skin at the site of the palpable lump. This is far medial in the left breast and was injected with difficulty. Breast parenchyma is fat replaced. There is no evidence of gynecomastia or mammographic evidence of mass lesion on either side. No spiculation or worrisome skin change is seen. 3-D tomography shows no additional abnormality. Right breast images are unremarkable as well. Sonographic findings: Focused left breast sonography is carried out in through the area of the palpable lump. There are several isoechoic to slightly hyperechoic nodular areas in the subcutaneous fat consistent with small benign lipoma. At 10 o'clock there are areas measuring 1.6 and 1.5 cm in greatest diameter. At 3 o'clock there is a 0.5 cm presumed lipoma. No other breast lesion is seen sonographically. Review of the patient's recent chest CT from June 25, 2018 shows homogeneous subcutaneous fat through both breasts. There is a regional area of subcutaneous fat hypertrophy inferiorly and medially in the left breast consistent with a nonencapsulated lipoma or regional fatty deposition. In any event, there is no CT evidence of breast MASS either. Impression: BIRADS category II benign findings. Clinical follow-up is advised. This mammogram was interpreted with the aid of an FDA-approved computer-aided detection system. The patient states she had a clinical breast exam in June 2018. The patient letter being requested is male patient M2. Electronically Signed by Lauro Newman MD 07/16/2018 03:11 P
[2018-07-16 14:44] LABS: C REACTIVE PROTEIN QUANTITATIV < 0.30 MG/DL (0.00-0.30); NT-PRO BNP 175 PG/ML (<125); TESTOSTERONE 382 NG/DL (241-827)
== END ==
LOC: M RAD 09:25
PROVIDERS: ATTEND Family Medicine
DX: Z86.018 Personal history of other benign neoplasm (principal); R06.09 Other forms of dyspnea; N62 Hypertrophy of breast; R07.81 Pleurodynia
CPT/HCPCS: 36415; 76642; 77066; 82679; 83880; 84403; 85652; 86140; G0279

== ENCOUNTER → 2018-09-09 | Outpatient (REF) | payer OTHER ==
[~2018-09-09] MED LIST changes: -EZET10TA PO; +EZET10TA21 PO
[2018-09-09 16:10] LABS: BASO # 0.1 10^3/uL (0.0-0.2); BASO % 0.5 % (0.0-1.0); EOS # 0.2 10^3/uL (0.0-0.50); EOS % 2.1 % (0.0-3.0); HEMATOCRIT 47.3 % (42.0-52.0); HEMOGLOBIN 15.7 g/dl (13.5-17.5); LYMPH # 2.7 10^3/uL (1.5-4.5); LYMPH % 28.1 % (24.0-44.0); MEAN CORPUSCULAR HEMOGLOBIN 28.2 pg (27.0-33.0); MEAN CORPUSCULAR HGB CONC 33.2 g/dl (32.0-36.5); MEAN CORPUSCULAR VOLUME 84.9 fl (80.0-96.0); MONO # 0.7 10^3/uL (0.0-0.8); MONO % 7.4 % (0.0-5.0); NEUTROPHILS # 5.8 10^3/uL (1.8-7.7); NEUTROPHILS % 61.2 % (36.0-66.0); PLATELET COUNT, AUTOMATED 204 10^3/uL (150-450); RED BLOOD COUNT 5.57 10^6/uL (4.30-6.10); WHITE BLOOD COUNT 9.5 10^3/uL (4.0-10.0)
== END ==
LOC: M SFHCPLAZ 12:55
PROVIDERS: ATTEND Physician Assistant Medical
DX: R10.13 Epigastric pain (principal)

== ENCOUNTER → 2018-09-21 | Outpatient (CLI) | payer OTHER ==
--- NOTE | 2018-09-23 21:53 | SLEEPCENT ---
DATE OF PROCEDURE: 09/21/2018 ORDERED BY: Garo Craven PA-C Nocturnal polysomnography was performed for evaluation of sleep physiology in this patient with a history of excessive somnolence, snoring and nonrestorative sleep who has comorbidities of hypertension, coronary artery disease and acid reflux. 8 hours and 51 minutes of data were reviewed. There are 468 minutes of sleep identified. Sleep latency was mildly prolonged at 19 minutes. REM latency more so prolonged at 254 minutes. Sleep architecture was fragmented with three short REM cycles. Overall sleep efficiency was 89%. The electrocardiogram showed a sinus rhythm with an average heart rate of 65 beats per minute. EEG showed reasonably normal waveforms for awake and sleep stages. There were 186 respiratory events identified of 10 seconds in duration or greater for an apnea-hypopnea index of 23.8. The events were primarily obstructive, not exclusive to sleep stage nor body posture. Arousals from respiratory events occurred 9.9 times per hour and oxygen desaturations were seen into the 80s. There was minimal limb activity seen and remaining measures of sleep physiology were normal. IMPRESSION Obstructive sleep apnea syndrome (G47.33). Apnea-hypopnea index 23.8. RECOMMENDATIONS The patient should be encouraged to return to the sleep disorder center for pressure therapy. In the interim alcohol and sedative avoidance should be practiced and caution exercised during the operation of motor vehicles.
== END ==
LOC: M SLEEP 19:31
PROVIDERS: ATTEND Physician Assistant
DX: G47.33 Obstructive sleep apnea (adult) (pediatric) (principal)

== ENCOUNTER → 2018-10-09 | Outpatient (CLI) | payer OTHER ==
[~2018-10-09] MED LIST changes: -OMEP20CA3 PO; +OMEP20CA4 PO; +POTA8CAP10 PO; -POTA8CAP4 PO
--- NOTE | 2018-10-12 10:49 | SLEEPCENT ---
DATE OF STUDY: 10/09/2018 ORDERED BY: BENJAMIN Valerio Nocturnal polysomnography was performed for the titration of pressure therapy in this patient with obstructive sleep apnea syndrome. Apnea-hypopnea index 23.8. For testing, a Mozenda Simplus full-face mask was used, 4 cm of water pressure were applied to the circuit and the lights were extinguished. 7 hours and 52 minutes of data were reviewed. There are 424 minutes of sleep identified. Sleep latency was short at 2.5 minutes. REM sleep was delayed at 264 minutes. Sleep architecture showed poor progression, but one REM cycle was seen. Overall sleep efficiency was 91.1%. The patient's electrocardiogram showed sinus rhythm with some ectopy, average heart rate 64 beats per minute. EEG showed fairly normal waveforms for awake and sleep. Persistence of respiratory events prompted an increase in CPAP pressure. An optimal pressure of 16 cm was reached late in the study, however at this pressure the patient did not experience obstructive events. IMPRESSION: Obstructive sleep apnea syndrome (G47.33) RECOMMENDATIONS: Nightly use of pressure therapy at 16 cm of water is recommended. Time for titration of this pressure was limited and should the patient experience persistence of symptoms retitration may be necessary. cc: SUNITHA Harvey
== END ==
LOC: M SLEEP 20:00
PROVIDERS: ATTEND Physician Assistant
DX: G47.33 Obstructive sleep apnea (adult) (pediatric) (principal)

== ENCOUNTER → 2018-10-19 | Outpatient (REF) | payer OTHER ==
[2018-10-19 10:21] LABS: BASO # 0.1 10^3/uL (0.0-0.2); BASO % 0.6 % (0.0-1.0); EOS # 0.2 10^3/uL (0.0-0.50); EOS % 2.1 % (0.0-3.0); HEMATOCRIT 47.2 % (42.0-52.0); HEMOGLOBIN 15.8 g/dl (13.5-17.5); LYMPH # 2.3 10^3/uL (1.5-4.5); LYMPH % 27.3 % (24.0-44.0); MEAN CORPUSCULAR HEMOGLOBIN 27.9 pg (27.0-33.0); MEAN CORPUSCULAR HGB CONC 33.5 g/dl (32.0-36.5); MEAN CORPUSCULAR VOLUME 83.4 fl (80.0-96.0); MONO # 0.6 10^3/uL (0.0-0.8); MONO % 6.8 % (0.0-5.0); NEUTROPHILS # 5.2 10^3/uL (1.8-7.7); NEUTROPHILS % 62.7 % (36.0-66.0); PLATELET COUNT, AUTOMATED 178 10^3/uL (150-450); RED BLOOD COUNT 5.66 10^6/uL (4.30-6.10); WHITE BLOOD COUNT 8.2 10^3/uL (4.0-10.0)
[2018-10-19 10:33] LABS: ALBUMIN 3.9 GM/DL (3.2-5.2); ALT/SGPT 41 U/L (12-78); BILIRUBIN,TOTAL 1.2 MG/DL (0.2-1.0); BLOOD UREA NITROGEN 17 MG/DL (7-18); CALCIUM LEVEL 8.6 MG/DL (8.5-10.1); CARBON DIOXIDE LEVEL 31 MEQ/L (21-32); CHLORIDE LEVEL 105 MEQ/L (98-107); CHOLESTEROL LEVEL 137 MG/DL (<200); CHOLESTEROL RISK RATIO 4.892 (<5); CREATININE FOR GFR 1.05 MG/DL (0.70-1.30); FREE T4 0.95 NG/DL (0.76-1.46); GLOMERULAR FILTRATION RATE > 60.0 (>56); GLUCOSE, FASTING 138 MG/DL (70-100); HDL CHOLESTEROL 28 MG/DL (>40); LDL CHOLESTEROL 55 MG/DL (<100); MAGNESIUM LEVEL 2.4 MG/DL (1.8-2.4); NON-HDL-C 109 MG/DL; SODIUM LEVEL 141 MEQ/L (136-145); TOTAL PROTEIN 7.6 GM/DL (6.4-8.2); TRIGLYCERIDES LEVEL 269 MG/DL (<150)
[2018-10-19 10:39] LABS: HEMOGLOBIN A1c 6.1 %
== END ==
LOC: M SFHCPLAZ 08:24
PROVIDERS: ATTEND Nurse Practitioner Family
DX: I10 Essential (primary) hypertension (principal); E78.5 Hyperlipidemia, unspecified; R73.01 Impaired fasting glucose

== ENCOUNTER → 2018-10-28 | Outpatient (CLI) | payer OTHER ==
[2018-10-28 18:14] LABS: BASO % 0.5 % (0.0-1.0); EOS # 0.2 10^3/uL (0.0-0.50); EOS % 1.9 % (0.0-3.0); HEMATOCRIT 46.7 % (42.0-52.0); HEMOGLOBIN 15.5 g/dl (13.5-17.5); LYMPH # 2.2 10^3/uL (1.5-4.5); LYMPH % 26.6 % (24.0-44.0); MEAN CORPUSCULAR HEMOGLOBIN 27.8 pg (27.0-33.0); MEAN CORPUSCULAR HGB CONC 33.2 g/dl (32.0-36.5); MEAN CORPUSCULAR VOLUME 83.8 fl (80.0-96.0); MONO # 0.6 10^3/uL (0.0-0.8); MONO % 7.1 % (0.0-5.0); NEUTROPHILS # 5.1 10^3/uL (1.8-7.7); NEUTROPHILS % 63.5 % (36.0-66.0); PLATELET COUNT, AUTOMATED 185 10^3/uL (150-450); RED BLOOD COUNT 5.57 10^6/uL (4.30-6.10); WHITE BLOOD COUNT 8.1 10^3/uL (4.0-10.0)
[2018-11-02 09:13] LABS: D001-IgE D pteronyssinus <0.10 kU/L (Class 0); E001-IgE Cat Epith/Dander < 0.10 kU/L (Class 0); E005-IgE Dog Dander < 0.10 kU/L (Class 0); G002-IgE Bermuda Grass < 0.10 kU/L (Class 0); G008-IgE Kentucky Bluegrass < 0.10 kU/L (Class 0); M001-IgE Penicillium chrysogen < 0.10 kU/L (Class 0); M002 IgE Cladosporium herbaru < 0.10 kU/L (Class 0); M003 IgE Aspergillus fumigatu < 0.10 kU/L (Class 0); M006-IgE Alternaria alternata < 0.10 kU/L (Class 0); T001-IgE Maple/Box Elder < 0.10 kU/L (Class 0); T003-IgE Common Silver Birch < 0.10 kU/L (Class 0); T006-IgE Cedar, Mountain < 0.10 kU/L (Class 0); T007-IgE Oak, White < 0.10 kU/L (Class 0); T008-IgE Elm, American < 0.10 kU/L (Class 0); T015-IgE Ash, White < 0.10 kU/L (Class 0); T041-IgE Hickory, White < 0.10 kU/L (Class 0); T070-IgE White Mulberry < 0.10 kU/L (Class 0); W001-IgE Ragweed, Short < 0.10 kU/L (Class 0); W009-IgE Plantain, English < 0.10 kU/L (Class 0); W014-IgE Pigweed, Rough < 0.10 kU/L (Class 0); W018-IgE Sheep Sorrel < 0.10 kU/L (Class 0)
== END ==
LOC: M LAB 16:30
PROVIDERS: ATTEND Physician Assistant
DX: J45.30 Mild persistent asthma, uncomplicated (principal)

== ENCOUNTER 2018-11-24 10:49 | Observation (INO) | payer MEDICAID, OTHER ==
[~2018-11-24] VITALS: Ht 182.9 cm; Wt 115.9 kg
[2018-11-24] MEDS ORDERED: BREO1INH3 INH (11:17)
[2018-11-24] MEDS ORDERED: PANT40TA3 PO (11:17)
[2018-11-24] MEDS ORDERED: MONT10TA2 PO (11:17)
[2018-11-24] MEDS ORDERED: POTA1TAB21 PO (11:17)
[2018-11-24] MEDS ORDERED: ALBU8.5H INH (11:17)
--- NOTE | 2018-11-24 12:14 | REP ---
CT of the head without contrast Indication: Fall. On Plavix. Comparison: None Technique: Axial CT of the head was performed without contrast. Findings: There is no visible soft tissue swelling or calvarial fracture. There is no evidence of acute intracranial hemorrhage or extra-axial fluid collection. Renner-white matter differentiation is maintained. There is no mass effect or midline shift. The basal cisterns are patent. There is no hydrocephalus. There is deformity of the right lamina papyracea and the nasal bones, likely chronic. The visualized paranasal sinuses and mastoid air cells are clear. There is a well-defined 6 mm lucency through the left frontal skull, slightly greater diameter within the inner table. Impression: No evidence of acute intracranial hemorrhage. Deformity of the right lamina papyracea and nasal bones, likely chronic. 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 Electronically Signed by Kailash Tobar MD 11/24/2018 11:45 A
[2018-11-24 12:51] LABS: BASO # 0.1 10^3/uL (0.0-0.2); BASO % 0.8 % (0.0-1.0); EOS # 0.1 10^3/uL (0.0-0.50); EOS % 1.4 % (0.0-3.0); HEMATOCRIT 46.1 % (42.0-52.0); HEMOGLOBIN 15.6 g/dl (13.5-17.5); LYMPH # 2.2 10^3/uL (1.5-4.5); LYMPH % 28.6 % (24.0-44.0); MEAN CORPUSCULAR HEMOGLOBIN 28.5 pg (27.0-33.0); MEAN CORPUSCULAR HGB CONC 33.8 g/dl (32.0-36.5); MEAN CORPUSCULAR VOLUME 84.1 fl (80.0-96.0); MONO # 0.6 10^3/uL (0.0-0.8); MONO % 8.1 % (0.0-5.0); NEUTROPHILS # 4.6 10^3/uL (1.8-7.7); NEUTROPHILS % 60.4 % (36.0-66.0); PLATELET COUNT, AUTOMATED 164 10^3/uL (150-450); RED BLOOD COUNT 5.48 10^6/uL (4.30-6.10); WHITE BLOOD COUNT 7.6 10^3/uL (4.0-10.0)
[2018-11-24 13:01] LABS: INR 0.98; PROTHROMBIN TIME 12.7 SECONDS (11.8-14.0)
[2018-11-24 13:02] LABS: PARTIAL THROMBOPLASTIN TIME 27.5 SECONDS (25.0-38.4)
--- NOTE | 2018-11-24 13:09 | REP ---
Portable chest, single AP view with the patient upright, 12:17 p.m.: Comparison is 07/13/2018. There is a small focal density in the left costophrenic angle, nonspecific, epicardial fat pad artifact versus small infiltrate. Lung yung otherwise clear. Cardiac size is upper normal for portable positioning, unchanged. The marichuy, mediastinum, skeletal structures are unremarkable. Impression: Small infiltrate versus epicardial fat pad artifact in the left costophrenic angle. Otherwise, negative portable chest Electronically Signed by Jersey Boyce MD 11/24/2018 01:00 P
[2018-11-24 13:39] LABS: BLOOD UREA NITROGEN 11 MG/DL (7-18); CARBON DIOXIDE LEVEL 29 MEQ/L (21-32); CHLORIDE LEVEL 108 MEQ/L (98-107); CREATININE FOR GFR 0.87 MG/DL (0.70-1.30); GLOMERULAR FILTRATION RATE > 60.0 (>56); GLUCOSE, FASTING 111 MG/DL (70-100); SODIUM LEVEL 141 MEQ/L (136-145)
[2018-11-24 14:16] LABS: CK-MB VALUE MASS < 1.0 NG/ML (<3.6); CPK CREATINE PHOSPHOKINASE 141 U/L (39-308); MB/CK RELATIVE INDEX 0.71 (< OR =4); TROPONIN I < 0.02 NG/ML (< 0.10)
[2018-11-24] MEDS ORDERED: AMLO5TAB6 PO (14:56)
[2018-11-24] MEDS ORDERED: MOM 30ML SUSPENSION UDC PO PRN (15:00)
[2018-11-24] MEDS ORDERED: ACETAMINOPHEN TAB 650MG DOSE (2X325MG) PO PRN (15:00)
[2018-11-24] MEDS ORDERED: POTASSIUM CHLORIDE 10 MEQ SR TABLET PO ONE (15:00)
[2018-11-24] MEDS ORDERED: FUROSEMIDE 40 MG TAB PO ONE (15:00)
[2018-11-24] MEDS ORDERED: MAALOX 30 ML SUSP *UDC PO PRN (15:00)
[2018-11-24 15:54] LABS: AMPHETAMINES LEVEL URINE NEGATIVE (NEGATIVE); BARBITURATES URINE NEGATIVE (NEGATIVE); BENZODIAZEPINES URINE NEGATIVE (NEGATIVE); CANNABINOIDS URINE NEGATIVE (NEGATIVE); COCAINE METABOLITE URINE NEGATIVE (NEGATIVE); METHADONE URINE NEGATIVE (NEGATIVE); OPIATES URINE NEGATIVE (NEGATIVE); PHENCYCLIDINE URINE NEGATIVE (NEGATIVE)
[2018-11-24 17:00] VITALS: BP 130/88
--- NOTE | 2018-11-24 17:05 | HPEPDOC ---
General Date of Admission 11/24/18 Date of Service: Nov 24, 2018 Primary Care Physician: [facility] Other Providers Dr Corrales - cardiology; Dr Eric - pulmonology Attending Physician: Jose Goldberg MD Chief Complaint The patient is a 53-year-old male admitted with a reason for visit of Fall On Thinners. Source: Patient Exam Limitations: No limitations History of Present Illness 53 yo male with history of CAD,HTN and intermittent chronic lightheadedness (for 1-2 years) presented to ED after fall yesterday. He states yesterday , he was raking pine needles in the heat, felt light headed and went to sit in chair. He states chair was next to threshold in garage and he grabbed the chair, which slipped 2 inches down garage threshold lip and patient lost his balance and fell into garage siding and hit his head on blacktop. He states when he came to (unknown duration), his left arm was tangled up in chair. Work up in the ED was negative for head CT and labs and tele. ED contact Dr Corrales, who requested observation to hospital for evaluation of syncope. Patient states no CP or palpitations with lightheaded episodes; states [place] with walking 500 feet. State s palpitations relief with diuretic and CPAP. He states no lightheaded feeling while undergoing methacholine challenge (09/2018); He states he does get light headed doing home spirometry. states increased dry cough aggrevates lightheadedness and paroxysmal coughing can cause post tussis emesis and post tussis syncope. Home Medications Scheduled Alirocumab (Praluent Pen) 75 Mg/Ml Inj, 75 MG SC Q2WK, (Reported) Amlodipine Besylate (Amlodipine Besylate) 5 Mg Tablet, 5 MG PO DAILY, (Reported) Aspirin (Aspir 81) 81 Mg Tab, 81 MG PO DAILY, (Reported) Clopidogrel Bisulfate (Plavix) 75 Mg Tab, 75 MG PO DAILY, (Reported) Ezetimibe (Ezetimibe) 10 Mg Tab, 10 MG PO DAILY, (Reported) Fluticasone/Vilanterol (Breo Ellipta 200-25 Mcg INH) 1 Each Blst.w.dev, 1 PUFF INH DAILY, (Reported) Furosemide (Furosemide) 40 Mg Tab, 40 MG PO BID, (Reported) TAKES WITH POTASSIUM AT 0800/1300 Losartan Potassium (Losartan Potassium) 50 Mg Tablet, 100 MG PO DAILY, (Reported) Metoprolol Succinate (Metoprolol Succinate) 100 Mg Tab, 100 MG PO DAILY, (Reported) Montelukast Sodium (Montelukast Sodium) 10 Mg Tablet, 10 MG PO QHS, (Reported) Pantoprazole Sodium (Pantoprazole Sodium) 40 Mg Tablet.dr, 40 MG PO DAILY, (Reported) Potassium Chloride (Potassium Chloride) 8 Meq Tablet.er, 8 MEQ PO BID, (Reported) TAKES WITH FUROSEMIDE AT 0800/1300 Sertraline HCl (Sertraline HCl) 100 Mg Tablet, 150 MG PO DAILY, (Reported) Scheduled PRN Albuterol Sulfate (Albuterol Sulfate Hfa) 8.5 Gm Hfa.aer.ad, 2 PUFFS INH QID PRN for SHORTNESS OF BREATH, (Reported) Lorazepam (Lorazepam) 0.5 Mg Tablet, 0.5 MG PO BIDP PRN for ANXIETY, (Reported) Nitroglycerin (Nitroglycerin) 0.4 Mg Sub, 0.4 MG SL Q5MP PRN for CHEST PAIN, (Reported) Allergies Coded Allergies: No Known Allergies (Unverified , 12/31/17) Past Medical History Medical History 1) HTN 2) HYPERLIPIDEMIA 3) CAD ---08/2015 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- ---07/20/2018 EXERCISE STRESS TEST : NEGATIVE FOR ISECHEMIA AT LOW WORKL OAD. MODERATELY IMPAIRED FUNCTIONAL AEROBIC CAPACITY. 4) GERD 5) MEDIUM TUBULAR ADENOMA on 02/2018 COLONOSCOPY - 6) Asthma - Positive methacholine challenge - reversible with albuterol 7) STEPHANIE - with CPAP at 16cm SURGICAL HISTORY STENTS ST [place] 2015 ANGIOPLASTY 2016 HEART CATH 2017 COLONOSCOPY/EGD 02/2018 LEFT KNEE SKIN SUTURE after traumatic knee injury without internal derangement SOCIAL HISTORY non smoker, , no EtOH use FAMILY HISTORY: diabetes, HTN , liver disease, heart disease A-FIB/CHADSVASC A-FIB History Current/History of A-Fib/PAF?: No Review of Systems Other systems 10 systems reviewed and negative except as per hPI Physical Examination General Exam: Positive: Alert, Cooperative, No Acute Distress Eye Exam: Positive: PERRLA, Conjunctiva & lids normal, EOMI ENT Exam: Positive: Atraumatic, Pharynx Normal, Tympanic Membranes Normal Neck Exam: Positive: Supple, +2 carotid pulse wo bruit Chest Exam: Positive: Clear to auscultation, Normal air movement; Negative: Rales, Rhonchi, Wheezing, Diminished Heart Exam: Positive: Rate Normal, Regular Rhythm, Normal S1, Normal S2, Other (no murmur, no rub) Telemetry: Positive: No significant arrhythmia, Other Telemetry: (NSR; EKG reviewed and NSR at 66 bpm) Abdomen Exam: Positive: Normal bowel sounds, Soft (NT ND) Extremity Exam: Positive: Normal pulses; Negative: Clubbing, Cyanosis, Edema Skin Exam: Positive: Nl turgor and temperature Neuro Exam: Positive: Strength at 5/5 X4 ext, Normal Tone, Sensation Intact, Cranial Nerves 3-12 NL Psych Exam: Positive: Mental status NL, Mood NL, Memory Intact, Oriented x 3 Vital Signs Vital Signs Date Time Temp Pulse Resp B/P (MAP) Pulse Ox O2 Delivery O2 Flow Rate FiO2 11/24/18 14:45 152/89 (110) 11/24/18 14:34 67 92 Room Air 11/24/18 10:49 97.3 20 Laboratory Data Labs 24H Laboratory Tests 2 11/24/18 12:22: Bedside Glucose (Misc Panel) 114H 11/24/18 12:28: Immature Granulocyte % (Auto) 0.7, White Blood Count 7.6, Red Blood Count 5.48, Hemoglobin 15.6, Hematocrit 46.1, Mean Corpuscular Volume 84.1, Mean Corpuscular Hemoglobin 28.5, Mean Corpuscular Hemoglobin Concent 33.8, Red Cell Distribution Width 13.2, Platelet Count 164, Neutrophils (%) (Auto) 60.4, Lymphocytes (%) (Auto) 28.6, Monocytes (%) (Auto) 8.1H, Eosinophils (%) (Auto) 1.4, Basophils (%) (Auto) 0.8, Neutrophils # (Auto) 4.6, Lymphocytes # (Auto) 2.2, Monocytes # (Auto) 0.6, Eosinophils # (Auto) 0.1, Basophils # (Auto) 0.1, Nucleated Red Blood Cells % (auto) 0.0, Prothrombin Time 12.7, Prothromb Time International Ratio 0.98, Activated Partial Thromboplast Time 27.5, Anion Gap 4L, Glomerular Filtration Rate > 60.0, Blood Urea Nitrogen 11, Creatinine 0.87, Sodium Level 141, Potassium Level 4.0, Chloride Level 108H, Carbon Dioxide Level 29, Calcium Level 9.0, Total Creatine Kinase 141, Creatine Kinase MB < 1.0, Creatine Kinase MB Relative Index 0.71, Troponin I < 0.02, Thyroid Stimulating Hormone (TSH) 1.640 CBC/BMP Laboratory Tests 11/24/18 12:28 Red Blood Count 5.48, Mean Corpuscular Volume 84.1, Mean Corpuscular Hemoglobin 28.5, Mean Corpuscular Hemoglobin Concent 33.8, Red Cell Distribution Width 13.2, Neutrophils (%) (Auto) 60.4, Lymphocytes (%) (Auto) 28.6, Monocytes (%) (Auto) 8.1 H, Eosinophils (%) (Auto) 1.4, Basophils (%) (Auto) 0.8, Neutrophils # (Auto) 4.6, Lymphocytes # (Auto) 2.2, Monocytes # (Auto) 0.6, Eosinophils # (Auto) 0.1, Basophils # (Auto) 0.1, Calcium Level 9.0, Total Creatine Kinase 141 Assessment/Plan Lightheadedness Syncope head trauma while on plavix HTN CAD GERD PLAN: Observation, serial troponin, tele, neurochecks. cardiac echo, carotid US. continue home medications CODE: FULL CODE DVT PROPHYLAXIS: Enoxaprin Plan / VTE VTE Prophylaxis Ordered?: Yes AUDREY BEE DO Nov 24, 2018 14:59
[2018-11-24] MEDS ORDERED: LORazepam 0.5 MG TAB PO PRN (17:15)
[2018-11-24] MEDS ORDERED: ALBUTEROL 90 MCG/ACT 8GM HFA INHALER INH PRN (17:15)
[2018-11-24] MEDS: DOCUSATE SODIUM 100 MG CAP PO SCH (19:57)
--- NOTE | 2018-11-24 21:09 | REPVR ---
EXAM: US Duplex Bilateral Extracranial Arteries EXAM DATE/TIME: 11/24/2018 6:50 PM CLINICAL HISTORY: 53 years old, male; Other: TIA; Additional info: Syncope TECHNIQUE: Imaging protocol: Real-time Duplex ultrasound scan of the Bilateral carotid and vertebral arteries combining machuca scale, color Doppler and spectral waveform analysis. COMPARISON: No relevant prior studies available. FINDINGS: Right common carotid artery: Unremarkable. No occlusion or stenosis. Waveforms are normal. Right internal carotid artery: Unremarkable. No occlusion or stenosis. Waveforms are normal. Right ICA/CCA ratio: Within normal limits. 0.33. Right external carotid artery: No stenosis in the origin. Right vertebral artery: Unremarkable. Antegrade flow Left common carotid artery: Unremarkable. No occlusion or stenosis. Waveforms are normal. Left internal carotid artery: Unremarkable. No occlusion or stenosis. Waveforms are normal. Left ICA/CCA ratio: Within normal limits. 0.37. Left external carotid artery: No stenosis in the origin. Left vertebral artery: Unremarkable. Antegrade flow. IMPRESSION: 1. Normal right carotid duplex. 2. Normal left carotid duplex. 3. The vertebral arteries appear antegrade and patent. COMMENT: Carotid Stenosis Reference using SRU criteria: Mild: less than 50% stenosis. ICA PSV is less than 125 cm/second and plaque or intimal thickening is visible. Moderate: 50-69% stenosis. ICA PSV is 125 to 230 cm/second and plaque is visible. Severe: 70-94% stenosis. ICA PSV is more than 230 cm/second and visible plaque and lumen narrowing are seen. Near occlusion: 95-99% stenosis. ICA PSV is variable and significant plaque and luminal narrowing are seen. Occluded: 100% stenosis. No flow identified. Electronically signed by: Francisca Hernandez On 11/24/2018 21:08:55 PM
[2018-11-24 22:00] VITALS: BP 135/80
[2018-11-25 06:00] VITALS: BP 155/93
[2018-11-25] MEDS: DOCUSATE SODIUM 100 MG CAP PO SCH (07:44)
[2018-11-25 07:51] VITALS: BP 160/88
--- NOTE | 2018-11-25 08:31 | CR ---
DATE OF CONSULTATION: 11/25/2018 REFERRING PHYSICIAN: Dr. Delatorre in the emergency room. INDICATION: Syncope. HISTORY OF PRESENT ILLNESS: Mr. Calloway is a 53-year-old man who is known to me. He has established coronary artery disease with remote intervention to left anterior descending (LAD), but has not had any relatively recent cardiac events. He presented to emergency room yesterday after he fell the day before. Patient reports that he was raking fine needles and got tired and somewhat lightheaded. So, he walked towards his garage and leaned over a folding chair, but apparently as he did so there was a little step up between the garage floor and the pavement and the chair slid and he fell down. He hit his head initially on the siding and then on the concrete, but he did not look for any immediate medical attention and denies losing consciousness, but yesterday after he did not feel good, had some lightheadedness and headache, he called primary care physician. He was recommended to go to emergency room. The evaluation there was unremarkable. He had normal ECG, normal vital signs and normal neuro imaging, but yet, after I was contacted I recommended at least overnight admission for observation. He did well overnight here, did not have any arrhythmias on telemetry and this morning still has headache, but otherwise is feeling well. PAST MEDICAL HISTORY: 1. Coronary artery disease. He has a history of percutaneous coronary intervention (PCI) to mid LAD in 2016 after presentation with unstable angina. His last evaluation for ischemia was stress test that was done in June 2018. He demonstrated poor exertional tolerance for his age and was limited by dyspnea. He did not have any anginal symptoms and there was no objective evidence for ischemia on ECG. 2. Hypertension. 3. Dyslipidemia. 4. Asthma. 5. Obstructive sleep apnea (STEPHANIE) treated with continuous positive airway pressure (CPAP) and reports very good compliance and tolerance. 6. Gastroesophageal reflux disease (GERD). SURGICAL HISTORY: Positive for colonoscopies and left knee surgery. OUTPATIENT MEDICATIONS: - Praluent 75 mg every 2 weeks - amlodipine 5 mg a day - aspirin 81 a day - clopidogrel 75 a day - Zetia 10 mg a day - Breo Ellipta 1 puff daily - furosemide 40 mg twice a day - losartan 100 mg daily - metoprolol succinate 100 mg daily - montelukast 10 mg daily - pantoprazole 40 mg daily - potassium 8 mEq twice a day - sertraline 150 mg daily SOCIAL HISTORY: Patient is . He does not drink. He does not smoke. FAMILY HISTORY: Positive for coronary artery disease in first-degree relatives. REVIEW OF SYSTEMS: He denies any unusual events lately other than the fall. Denies any chest pains at least for a couple months. He says that he may have taken nitroglycerin about 2 months ago that he recalls, but he reports fairly severe exertional dyspnea. Reports improvement with continuous CPAP use at night. He also complains about chronic cough that is nonproductive and unrelated to activity, even though he often has it with activity as well. Denies any obvious wheezing. No abdominal pain, nausea, vomiting, diarrhea. No bleeding problems. No peripheral edema. No syncopal events, even though he frequently gets dizzy and lightheaded. PHYSICAL EXAMINATION: Mr. Calloway is a middle-aged man who appears his age. He appears anxious, which is his baseline. The last set of vital signs blood pressure 155/93 before he took his morning medications, heart rate 60s. I reviewed his telemetry tracing and there have been no arrhythmias. His heart rate typically is between 50-75. He is afebrile. Saturation 99% on room air. Weight was recorded as 115 kg yesterday. He does have some scratches on left side of his face and also on left upper extremity. Jugular venous pulse (JVP) is not up. No carotid bruit. Lungs are clear. Good air movement. No wheezing. No crackles. No rhonchi. Heart exam: Regular rhythm. No gallop, rub, or murmur. Abdomen: Soft. without rebound tenderness. Extremities are free of edema. Peripheral pulses are good quality. Neurologically, he is intact. LABORATORIES: Normal CBC. Normal basic metabolic panel. Normal two sets of cardiac enzymes. Negative toxicology screen. 1. CT of the head did not reveal any hemorrhage or evidence for acute stroke. 2. Carotid ultrasound bilaterally was normal. 3. Chest x-ray unremarkable. 4. ECG unremarkable. ASSESSMENT AND PLAN: Mr. Calloway is a 53-year-old man who has chronic coronary artery disease with remote history of intervention who presented not with syncope but with fall. He was monitored overnight, did not have any problems. He does report fairly severe exertional intolerance with cough and dyspnea. I do not appreciate any evidence for congestive heart failure by physical examination and he was apparently recently diagnosed with asthma. I would give a consideration to reducing the dose of metoprolol to just 50 mg daily because of high dose of beta-blockers, even though selective, can potentiate a bronchospasm. Other than that I do not have any additional recommendations and I believe he can be discharged home. He already scheduled followup appointment in my office next week from his prior office visits.
[2018-11-25] MEDS ORDERED: ENOXAPARIN 40 MG/0.4 ML SYRINGE (J1650) SC SCH (09:00)
[2018-11-25] MEDS ORDERED: METOPROLOL SUCC (TopROL XL) 100MG *XL* TAB PO SCH (09:00)
[2018-11-25] MEDS ORDERED: CLOPIDOGREL 75 MG TAB PO SCH (09:00)
[2018-11-25] MEDS ORDERED: SERTRALINE HCL 50 MG TAB PO SCH (09:00)
[2018-11-25] MEDS ORDERED: POTASSIUM CHLORIDE 10 MEQ SR TABLET PO SCH (09:00)
[2018-11-25] MEDS ORDERED: ASPIRIN 81 MG ENTERIC TAB PO SCH (09:00)
[2018-11-25] MEDS ORDERED: FUROSEMIDE 40 MG TAB PO SCH (09:00)
[2018-11-25] MEDS ORDERED: PANTOPRAZOLE 40MG TAB (PROTONIX) PO SCH (09:00)
[2018-11-25] MEDS ORDERED: LOSARTAN 50 MG TAB PO SCH (09:00)
[2018-11-25] MEDS ORDERED: amLODIPine 5 MG TAB PO SCH (09:00)
--- NOTE | 2018-11-25 13:35 | DS.PDOC ---
Discharge Summary General Date of Admission Nov 24, 2018 at 10:50 Date of Discharge 11/25/18 Specialist/Consultants Involve: Kody Corrales MD Discharge Summary PROCEDURES PERFORMED DURING STAY: None ADMITTING DIAGNOSES: 1. Syncope 2. CAD DISCHARGE DIAGNOSES: 1. Fall 2. CAD 3. Asthma COMPLICATIONS/CHIEF COMPLAINT: Syncope. HISTORY OF PRESENT ILLNESS: 53 YOM presented to emergency room yesterday after he fell the day before. Patient reports that he was raking and got tired and somewhat lightheaded. So, he walked towards his garage and leaned over a folding chair, but apparently as he did so there was a little step up between the garage floor and the pavement and the chair slid and he fell down. He hit his head initially on the siding and then on the concrete, but he did not look for any immediate medical attention and denies losing consciousness, but yesterday after he did not feel good, had some lightheadedness and headache, he called primary care physician. He was recommended to go to emergency room. HOSPITAL COURSE: Cardiology was contacted and it was recommended for patient to have at least one overnight admission for observation. He had normal ECG, car otid u/s was normal, chest x-ray unremarkable, normal vital signs and normal neuro imaging. He did well overnight, he did not have any arrhythmias on telemetry and he was ready to go home on day of discharge. DISCHARGE MEDICATIONS: Please see below. ALLERGIES: Please see below. PHYSICAL EXAMINATION ON DISCHARGE: VITAL SIGNS: Please see below. GENERAL: AOx3 HEENT: unremarkable NECK: soft, supple, no bruits CARDIOVASCULAR EXAMINATION: RRR RESPIRATORY EXAMINATION: CTA ABDOMINAL EXAMINATION: soft, non-tender, non-distended EXTREMITIES: no edema SKIN: warm, dry NEUROLOGICAL EXAMINATION: intact LABORATORY DATA: Please see below. IMAGING: Carotid ultrasound: IMPRESSION: 1. Normal right carotid duplex. 2. Normal left carotid duplex. 3. The vertebral arteries appear antegrade and patent Chest X-ray: Small infiltrate versus epicardial fat pad artifact in the left costophrenic angle. Otherwise, negative portable chest Head CT: Impression: No evidence of acute intracranial hemorrhage. Deformity of the right lamina papyracea and nasal bones, likely chronic. 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 PROGNOSIS: Good ACTIVITY: As tolerated DIET: Low Na+ diet DISCHARGE PLAN: To home DISCHARGE INSTRUCTIONS: 1. F/U with PCP 2. Keep f/u appt with Dr. Corrales as scheduled ITEMS TO FOLLOWUP ON ON OUTPATIENT: 1. Cardiology recommended giving consideration to reducing the dose of metoprolol to 50 mg daily because of high dose of beta-blockers, even though selective, can potentiate a bronchospasm DISCHARGE CONDITION:Stable Vital Signs/I&Os Vital Signs Date Time Temp Pulse Resp B/P (MAP) Pulse Ox O2 Delivery O2 Flow Rate FiO2 11/25/18 07:51 160/88 11/25/18 06:00 97.1 60 18 99 11/24/18 16:00 Room Air I&O- Last 24 Hours up to 6 AM 11/25/18 06:00 Intake Total 450 ml Output Total 900 ml Balance -450 ml Laboratory Data Labs 24H Laboratory Tests 2 11/24/18 12:22: Bedside Glucose (Misc Panel) 114H 11/24/18 12:28: Immature Granulocyte % (Auto) 0.7, White Blood Count 7.6, Red Blood Count 5.48, Hemoglobin 15.6, Hematocrit 46.1, Mean Corpuscular Volume 84.1, Mean Corpuscular Hemoglobin 28.5, Mean Corpuscular Hemoglobin Concent 33.8, Red Cell Distribution Width 13.2, Platelet Count 164, Neutrophils (%) (Auto) 60.4, Lymphocytes (%) (Auto) 28.6, Monocytes (%) (Auto) 8.1H, Eosinophils (%) (Auto) 1.4, Basophils (%) (Auto) 0.8, Neutrophils # (Auto) 4.6, Lymphocytes # (Auto) 2.2, Monocytes # (Auto) 0.6, Eosinophils # (Auto) 0.1, Basophils # (Auto) 0.1, Nucleated Red Blood Cells % (auto) 0.0, Prothrombin Time 12.7, Prothromb Time International Ratio 0.98, Activated Partial Thromboplast Time 27.5, Anion Gap 4L, Glomerular Filtration Rate > 60.0, Blood Urea Nitrogen 11, Creatinine 0.87, Sodium Level 141, Potassium Level 4.0, Chloride Level 108H, Carbon Dioxide Level 29, Calcium Level 9.0, Total Creatine Kinase 141, Creatine Kinase MB < 1.0, Creatine Kinase MB Relative Index 0.71, Troponin I < 0.02, Thyroid Stimulating Hormone (TSH) 1.640 11/24/18 15:16: Urine Amphetamines Screen NEGATIVE, Urine Benzodiazepines Screen NEGATIVE, Urine Opiates Screen NEGATIVE, Urine Methadone Screen NEGATIVE, Urine Barbiturates Screen NEGATIVE, Urine Phencyclidine Screen NEGATIVE, Urine Cocaine Metabolite Screen NEGATIVE, Urine Cannabinoids Screen NEGATIVE 11/24/18 15:45: Troponin I < 0.02 CBC/BMP Laboratory Tests 11/24/18 12:28 Red Blood Count 5.48, Mean Corpuscular Volume 84.1, Mean Corpuscular Hemoglobin 28.5, Mean Corpuscular Hemoglobin Concent 33.8, Red Cell Distribution Width 13.2, Neutrophils (%) (Auto) 60.4, Lymphocytes (%) (Auto) 28.6, Monocytes (%) (Auto) 8.1 H, Eosinophils (%) (Auto) 1.4, Basophils (%) (Auto) 0.8, Neutrophils # (Auto) 4.6, Lymphocytes # (Auto) 2.2, Monocytes # (Auto) 0.6, Eosinophils # (Auto) 0.1, Basophils # (Auto) 0.1, Calcium Level 9.0, Total Creatine Kinase 141 FSBS Laboratory Tests Test 11/24/18 12:22 Range/Units Bedside Glucose (Misc Panel) 114 70-105 MG/DL Discharge Medications Scheduled Alirocumab (Praluent Pen) 75 Mg/Ml Inj, 75 MG SC Q2WK, (Reported) Amlodipine Besylate (Amlodipine Besylate) 5 Mg Tablet, 5 MG PO DAILY, (Reported) Aspirin (Aspir 81) 81 Mg Tab, 81 MG PO DAILY, (Reported) Clopidogrel Bisulfate (Plavix) 75 Mg Tab, 75 MG PO DAILY, (Reported) Ezetimibe (Ezetimibe) 10 Mg Tab, 10 MG PO DAILY, (Reported) Fluticasone/Vilanterol (Breo Ellipta 200-25 Mcg INH) 1 Each Blst.w.dev, 1 PUFF INH DAILY, (Reported) Furosemide (Furosemide) 40 Mg Tab, 40 MG PO BID, (Reported) TAKES WITH POTASSIUM AT 0800/1300 Losartan Potassium (Losartan Potassium) 50 Mg Tablet, 100 MG PO DAILY, (Reported) Metoprolol Succinate (Metoprolol Succinate) 100 Mg Tab, 100 MG PO DAILY, (Reported) Montelukast Sodium (Montelukast Sodium) 10 Mg Tablet, 10 MG PO QHS, (Reported) Pantoprazole Sodium (Pantoprazole Sodium) 40 Mg Tablet.dr, 40 MG PO DAILY, (Reported) Potassium Chloride (Potassium Chloride) 8 Meq Tablet.er, 8 MEQ PO BID, (Reported) TAKES WITH FUROSEMIDE AT 0800/1300 Sertraline HCl (Sertraline HCl) 100 Mg Tablet, 150 MG PO DAILY, (Reported) Scheduled PRN Albuterol Sulfate (Albuterol Sulfate Hfa) 8.5 Gm Hfa.aer.ad, 2 PUFFS INH QID PRN for SHORTNESS OF BREATH, (Reported) Lorazepam (Lorazepam) 0.5 Mg Tablet, 0.5 MG PO BIDP PRN for ANXIETY, (Reported) Nitroglycerin (Nitroglycerin) 0.4 Mg Sub, 0.4 MG SL Q5MP PRN for CHEST PAIN, (Reported) Allergies Coded Allergies: No Known Allergies (Unverified , 12/31/17) KENTON NAVA Nov 25, 2018 10:51
--- NOTE | 2018-11-25 20:37 | ECGEPIP ---
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
[2018-11-25] MEDS ORDERED: MONTELUKAST 10 MG TAB PO SCH (21:00)
--- NOTE | 2018-11-26 19:07 | ECHO ---
DATE OF PROCEDURE: 11/24/2018 DATE OF : 1965 REFERRING PROVIDER: Emergency room physician PRIMARY SANITARY CHEMIST: Dr. Sanchez Corrales PATIENT LOCATION: Emergency room, 14. REASON FOR THE ECHOCARDIOGRAM: Syncope. 2D MEASUREMENTS: IVS: 1.0 cm LV: 4.4 cm LVPW: 1.1 cm LA: 4.3 cm Aorta: 3.4 cm RV: 3.1 cm DOPPLER MEASUREMENTS: Peak velocity across the aortic valve: 1.1 m/s Peak velocity across the LVOT: 0.87 m/s Mitral E: 0.43, Mitral A: 0.59 with a ratio of 0.7 2D COMMENTS: 1. Technically limited study due to poor acoustic window. 2. The left ventricular size is normal as well as the left ventricular wall thickness. 3. Left ventricular systolic function is normal, estimated at 55-60%. 4. Mildly enlarged left atrium. The right atrium and the right ventricle were not well visualized. 5. The atrial septum appeared to be normal in limited views. 6. Normal aortic root. 7. No pericardial effusion seen. 8. Mildly calcified aortic valve with normal leaflet excursion. Normal mitral valve. The tricuspid valve was not well visualized. The pulmonic valve and the proximal pulmonary artery branches appear to be normal. 9. The inferior vena cava was not visualized. DOPPLER: It detects trace mitral regurgitation, trace pulmonic regurgitation. Abnormal relaxation pattern was noted across the mitral valve leaflets as well as the mitral valve annulus consistent with features of grade 1 left ventricular diastolic dysfunction. IMPRESSION: 1. Technically limited study due to poor acoustic window. 2. Normal global left ventricular systolic function. There were some features of grade 1 left ventricular diastolic dysfunction manifested by abnormal relaxation. 3. Mildly dilated left atrium with trace mitral regurgitation. 4. Trace pulmonic regurgitation. 5. The right heart chambers were not well visualized. 6. The inferior vena cava was not visualized. [facility]
== END 2018-11-25 11:53 | disposition home or self-care (01) ==
LOC: M ED 10:49 → M ED INP 10:50 → UNDOADMOB 14:57 → M MSPAV 16:59
PROVIDERS: ADMIT Family Medicine; ATTEND Family Medicine
DX: R29.6 Repeated falls (principal); I25.10 Atherosclerotic heart disease of native coronary artery without angina pectoris; J45.909 Unspecified asthma, uncomplicated; I11.9 Hypertensive heart disease without heart failure; E78.5 Hyperlipidemia, unspecified; G47.33 Obstructive sleep apnea (adult) (pediatric); K21.9 Gastro-esophageal reflux disease without esophagitis; J44.9 Chronic obstructive pulmonary disease, unspecified; F32.9 Major depressive disorder, single episode, unspecified; F41.9 Anxiety disorder, unspecified; Z79.899 Other long term (current) drug therapy; Z79.82 Long term (current) use of aspirin; Z79.02 Long term (current) use of antithrombotics/antiplatelets; Z79.51 Long term (current) use of inhaled steroids; Z95.5 Presence of coronary angioplasty implant and graft; Z87.891 Personal history of nicotine dependence
CPT/HCPCS: 36415; 70450; 71045; 80048; 80307; 82550; 82553; 84443; 85025; 85610; 85730; 93005; 93041; 93306; 93880; 94760; 96372; 99285; J1650

== ENCOUNTER → 2018-12-22 | Outpatient (CLI) | payer OTHER ==
[~2018-12-22] MED LIST changes: +ALBU8.5H INH; +AMLO5TAB6 PO; +BREO1INH3 INH; +MONT10TA2 PO; +PANT40TA3 PO; +POTA1TAB21 PO; +PROHANCE 279.3MG/ML 15ML VIAL (A9576) As Ordered ONE; +PROHANCE 279.3MG/ML 5ML VIAL (A9576) As Ordered ONE
--- NOTE | 2018-12-22 15:06 | REP ---
MRI brain without and with IV contrast: History: Abnormal head CT. Comparison head CT study November 24, 2018 showed medial bowing of the lamina papyracea on the right and a 8 mm radiolucency in the left frontal calvarium. No other comparison brain imaging. Technique: Axial and sagittal imaging planes are utilized for T1 and T2-weighted scans. Sequences include spin-echo, fast spin echo, FLAIR, and diffusion weighted sequences. MRI findings: The bony calvarial defect seen on recent CT study in the left frontal bone is barely on MR. There is no evidence of a scalp or intracranial extension. No visible mass is seen. There is increased T2 and decreased T1 signal. Postcontrast images show no definite contrast enhancement. No other calvarial abnormality is seen. There is no evidence of intracranial mass lesion. No abnormal contrast enhancement is seen. Diffusion weighted scan show no evidence to suggest acute ischemia. There is no MR evidence of significant paranasal sinus disease. No intraorbital lesion is appreciated. Craniocervical junction and upper cervical cord are normal in appearance. No hemorrhage or mass is observed. There are a few scattered subcortical and periventricular white matter T2 hyperintensities on FLAIR and turbo spin echo T2-weighted scans consistent with mild small vessel changes. Impression: Mild small vessel changes. No acute intracranial lesion. The left frontal bone calvarial lesion seen on recent CT study is barely visible on MRI. No mass-like features. Most likely benign hemangioma or focus of eosinophilic granuloma. Repeat head CT study in 6-9 months could be considered to document stability. Electronically Signed by Lauro Newman MD 12/22/2018 03:38 P
== END ==
LOC: M RAD 12:26
PROVIDERS: ATTEND Nurse Practitioner Family
DX: R93.0 Abnormal findings on diagnostic imaging of skull and head, not elsewhere classified (principal)
CPT/HCPCS: 70553; A9576

== ENCOUNTER → 2019-02-03 | Outpatient (REF) | payer OTHER, MEDICAID ==
[~2019-02-03] MED LIST changes: -PROHANCE 279.3MG/ML 15ML VIAL (A9576) As Ordered ONE; -PROHANCE 279.3MG/ML 5ML VIAL (A9576) As Ordered ONE
== END ==
LOC: M LAB REF 13:00
PROVIDERS: ATTEND Nurse Practitioner Family
DX: R19.7 Diarrhea, unspecified (principal)

== ENCOUNTER → 2019-02-22 | Outpatient (CLI) | payer OTHER, MEDICAID ==
--- NOTE | 2019-02-22 15:37 | REPPI ---
Clinical: Left-sided rib pain Technique: Frontal view of the chest with multiple views of the left hemithorax. Findings: Frontal view of the chest demonstrates no acute cardiopulmonary process. Multiple views of the left hemithorax demonstrates no obvious acute rib fracture or pathology. Impression: Normal left rib series Electronically Signed by Garo Scanlon MD 02/22/2019 03:28 P
== END ==
LOC: M PLAIMG 10:56
PROVIDERS: ATTEND Physician Assistant Medical
DX: R07.81 Pleurodynia (principal)

== ENCOUNTER → 2019-03-15 | Outpatient (CLI) | payer OTHER, MEDICAID ==
[~2019-03-15] MED LIST changes: +OMEP-172 PO; -OMEP20CA4 PO
[2019-03-15 13:51] LABS: BASO # 0.1 10^3/uL (0.0-0.2); BASO % 0.7 % (0.0-1.0); EOS # 0.2 10^3/uL (0.0-0.5); HEMATOCRIT 45.2 % (42.0-52.0); HEMOGLOBIN 15.5 g/dl (13.5-17.5); LYMPH # 2.2 10^3/uL (1.5-5.0); LYMPH % 29.7 % (24.0-44.0); MEAN CORPUSCULAR HGB CONC 34.3 g/dl (32.0-36.5); MEAN CORPUSCULAR VOLUME 84.5 fl (80.0-96.0); MONO # 0.6 10^3/uL (0.0-0.8); MONO % 7.3 % (0.0-5.0); NEUTROPHILS # 4.5 10^3/uL (1.5-8.5); NEUTROPHILS % 59.6 % (36.0-66.0); PLATELET COUNT, AUTOMATED 178 10^3/uL (150-450); RED BLOOD COUNT 5.35 10^6/uL (4.30-6.10); WHITE BLOOD COUNT 7.5 10^3/uL (4.0-10.0)
[2019-03-15 14:13] LABS: HEMOGLOBIN A1c 6.1 %
[2019-03-15 14:27] LABS: ALBUMIN 4.1 GM/DL (3.2-5.2); ALT/SGPT 37 U/L (12-78); BILIRUBIN,TOTAL 1.6 MG/DL (0.2-1.0); BLOOD UREA NITROGEN 20 MG/DL (7-18); CALCIUM LEVEL 8.6 MG/DL (8.5-10.1); CARBON DIOXIDE LEVEL 29 MEQ/L (21-32); CHLORIDE LEVEL 106 MEQ/L (98-107); CHOLESTEROL LEVEL 142 MG/DL (<200); CHOLESTEROL RISK RATIO 4.303 (<5); CREATININE FOR GFR 0.99 MG/DL (0.70-1.30); FREE T4 0.99 NG/DL (0.76-1.46); GLOMERULAR FILTRATION RATE > 60.0 (>56); GLUCOSE, FASTING 120 MG/DL (70-100); HDL CHOLESTEROL 33 MG/DL (>40); LDL CHOLESTEROL 62 MG/DL (<100); NON-HDL-C 109 MG/DL; POTASSIUM SERUM 3.8 MEQ/L (3.5-5.1); SODIUM LEVEL 139 MEQ/L (136-145); TOTAL PROTEIN 7.7 GM/DL (6.4-8.2); TRIGLYCERIDES LEVEL 237 MG/DL (<150)
== END ==
LOC: M LAB 13:15
PROVIDERS: ATTEND Nurse Practitioner Family
DX: I10 Essential (primary) hypertension (principal); E78.5 Hyperlipidemia, unspecified; R73.01 Impaired fasting glucose

== ENCOUNTER 2019-04-28 10:08 | Emergency (ER) | payer OTHER ==
[~2019-04-28] VITALS: Ht 182.9 cm; Wt 122.0 kg
[2019-04-28 10:09] VITALS: BP 151/86
--- NOTE | 2019-04-28 10:47 | REP ---
CT of the brain without IV contrast: There is no subdural or epidural hematoma. There is no intraparenchymal or subarachnoid hemorrhage. There is no edema, mass effect or midline shift. The ventricles are normal size. The cortical stripe is unremarkable. There is a left frontal 7 mm cranial lucency, nonspecific, likely a cyst or venous anderson. No other calvarial lucencies are identified. The visualized paranasal sinuses and mastoid air cells are clear. Impression: There is no subdural or other acute intracranial hemorrhage. There is a 1 cm lucency in the left frontal calvarium , nonspecific, likely a venous anderson or cyst. There are no comparison studies. Electronically Signed by Jersey Boyce MD 04/28/2019 10:39 A
[2019-04-28] MEDS ORDERED: DERMABOND TOPICAL SKIN ADHESIVE TOP ONE (11:00)
[2019-04-28] MEDS ORDERED: ADACEL/BOOSTRIX VACCINE (DIPHTH/PERTUSS/ACELL/TETANUS)0.5ML SYR (90715) IM ONE (11:00)
== END 2019-04-28 12:33 | disposition home or self-care (01) ==
LOC: M ED 10:08
DX: S01.81XD Laceration without foreign body of other part of head, subsequent encounter (principal); W18.39XA Other fall on same level, initial encounter; Y92.018 Other place in single-family (private) house as the place of occurrence of the external cause; I10 Essential (primary) hypertension; J45.909 Unspecified asthma, uncomplicated; E78.9 Disorder of lipoprotein metabolism, unspecified; F41.9 Anxiety disorder, unspecified; K21.9 Gastro-esophageal reflux disease without esophagitis; Z79.01 Long term (current) use of anticoagulants

== ENCOUNTER → 2019-04-28 | Outpatient (CLI) | payer OTHER ==
[~2019-04-28] MED LIST changes: -LORA0.5T11 PO; +LORA0.5T5 PO; -OMEP-172 PO; +OMEP1CAP73 PO
--- NOTE | 2019-04-28 08:48 | PFTRPT ---
Site: [facility], [address] [place] [address], [id number] ID: [id number] Name: SCOTTY ROSALES Visit Date: 04/28/2019 Second ID: [id number] Referring Doctor: Scotty Uriostegui DO Reviewing Doctor: Arian Bosch MD Folder Machine: Iwona CHA RRT Age: 53 : 1965 Sex: Male Race: Height: 72.00 Inches Weight: 270.00 Lbs BSA: 2.42 Order IDs: [id number] Requested Test(s): <RESP-PFT.PFT B/A> Diagnosis: Z57.5 test appear to be valid, although the ATS standard for "end of test" was not met. Pt was given four puffs of albuterol for postbronchodilator. Review Status: Not Reviewed Pre-Bronch Post-Bronch Pred Actual %Pred Actual %Chng SPIROMETRY FVC (L) 5.33 3.43 64 3.46 FEV1 (L) 4.11 2.83 68 2.84 FEV1/FVC (%) 77 82 107 82 FEF 25% (L/sec) 8.72 7.59 87 8.01 5 FEF 50% (L/sec) 5.44 4.77 87 4.82 1 FEF 75% (L/sec) 1.83 0.95 51 1.03 7 FEF 25-75% (L/sec) 3.54 3.12 88 3.15 FEF Max (L/sec) 10.16 9.27 91 8.35 -10 FIVC (L) 3.49 3.65 4 FIF 50% (L/sec) 4.92 5.11 103 3.99 -21 FIF Max (L/sec) 6.11 4.66 -23 MVV (L/min) 157 88 55 Expiratory Time (sec) 4.85 4.96 2 Back Extrap Vol (L) 0.09 0.16 74 Time To FEFmax (sec) 0.066 0.091 37 LUNG VOLUMES SVC (L) 5.17 3.42 66 IC (L) 3.56 3.23 90 ERV (L) 1.61 0.19 11 TGV (L) 3.81 2.61 68 RV (Pleth) (L) 2.20 2.41 109 TLC (Pleth) (L) 7.37 5.84 79 RV/TLC (Pleth) (%) 30 41 137 DIFFUSION DLCOunc (ml/min/mmHg) 30.99 26.58 85 DLCOcor (ml/min/mmHg) 30.99 26.44 85 DL/VA (ml/min/mmHg/L) 4.20 4.91 117 VA (L) 7.37 5.38 72 BHT (sec) 10.06 IVC (L) 3.41 TLC (SB) (L) 5.53 AIRWAYS RESISTANCE Raw (cmH2O/L/s) 1.45 1.01 69 Gaw (L/s/cmH2O) 1.03 1.01 97 sRaw (cmH2O*s) 4.76 2.71 56 sGaw (1/cmH2O*s) 0.20 0.38 191 BLOOD GASES Hgb (gm/dL) 14.8
--- NOTE | 2019-04-29 04:36 | REP ---
Clinical: Inhalation toxic agents. Technique: Axial noncontrast images from the thoracic inlet to the upper abdomen including supine and prone inspiration / expiration high-resolution views. Coronal and sagittal images and coronal MIP re-formations obtained. Comparison: 06/25/2018. Findings: Images demonstrate mild chronic-appearing interstitial changes and minimal primarily basilar scarring along with suggestions for very subtle early subpleural fibrosis on prone images. Mild early bronchiectasis is also suggested. Small focal area of nodular consolidation/atelectasis at the lingula and medial right middle lobe likely represent transient findings. No further significant consolidation. No significant air trapping on excretory sequences. No effusion. No pneumothorax. No adenopathy. Atherosclerotic changes to the coronary arteries noted without cardiomegaly or pericardial effusion. The thoracic aorta is grossly normal. Surrounding musculoskeletal structures are intact. Impression: 1. Very early interstitial disease including subtle subpleural fibrosis and mild bronchiectasis cannot be excluded. No significant areas of consolidation/opacity or air trapping. 2. Small foci of presumed transient atelectasis and possible small consolidation in the right middle lobe and lingula, respectively. Electronically Signed by Garo Scanlon MD 04/29/2019 04:28 A
== END ==
LOC: M CARPUL 07:50
PROVIDERS: ATTEND Internal Medicine Pulmonary Disease
DX: Z57.5 Occupational exposure to toxic agents in other industries (principal); R91.8 Other nonspecific abnormal finding of lung field; J98.11 Atelectasis

== ENCOUNTER → 2019-06-21 | Outpatient (CLI) | payer OTHER ==
[~2019-06-21] MED LIST changes: -MONT10TA2 PO; +MONT10TA4 PO
--- NOTE | 2019-06-21 15:16 | REPPI ---
Clinical: Right-sided rib pain Technique: Frontal view of the chest with four views of the right hemithorax. Findings: Frontal view of the chest demonstrates no acute cardiopulmonary process. Multiple views of the right hemithorax demonstrates no obvious acute rib fracture or pathology. Impression: Normal right rib series Electronically Signed by Garo Scanlon MD 06/21/2019 03:07 P
== END ==
LOC: M PLAIMG 14:52
PROVIDERS: ATTEND Physician Assistant Medical
DX: S29.011A Strain of muscle and tendon of front wall of thorax, initial encounter (principal); X58.XXXA Exposure to other specified factors, initial encounter; Y92.9 Unspecified place or not applicable; Y93.9 Activity, unspecified

== ENCOUNTER → 2019-07-18 | Outpatient (REF) | payer OTHER, MEDICAID | LOC: M SFHCPLAZ 07:31 | PROVIDERS: ATTEND Family Medicine | DX: L82.0 Inflamed seborrheic keratosis (principal) ==

== ENCOUNTER → 2019-12-15 | Outpatient (CLI) | payer OTHER, MEDICAID ==
[~2019-12-15] MED LIST changes: +AMLO1TAB24 PO; -AMLO5TAB6 PO; -ASPI81TA85 PO; +ASPI81TA86 PO; +PANT40TA29 PO; -PANT40TA3 PO
[2019-12-15 12:03] LABS: ALBUMIN 3.8 GM/DL (3.2-5.2); ALT/SGPT 30 U/L (12-78); BILIRUBIN,TOTAL 0.9 MG/DL (0.2-1.0); BLOOD UREA NITROGEN 18 MG/DL (7-18); CALCIUM LEVEL 8.4 MG/DL (8.5-10.1); CARBON DIOXIDE LEVEL 30 MEQ/L (21-32); CHLORIDE LEVEL 107 MEQ/L (98-107); CHOLESTEROL LEVEL 150 MG/DL (<200); CHOLESTEROL RISK RATIO 5.172 (<5); CREATININE FOR GFR 0.97 MG/DL (0.70-1.30); GLOMERULAR FILTRATION RATE > 60.0 (>56); GLUCOSE, FASTING 143 MG/DL (70-100); HDL CHOLESTEROL 29 MG/DL (>40); LDL CHOLESTEROL 62 MG/DL (<100); NON-HDL-C 121 MG/DL; POTASSIUM SERUM 4.1 MEQ/L (3.5-5.1); SODIUM LEVEL 143 MEQ/L (136-145); TOTAL PROTEIN 7.3 GM/DL (6.4-8.2); TRIGLYCERIDES LEVEL 297 MG/DL (<150)
== END ==
LOC: M PLALAB 08:57
PROVIDERS: ATTEND Nurse Practitioner Family
DX: E78.5 Hyperlipidemia, unspecified (principal); I25.10 Atherosclerotic heart disease of native coronary artery without angina pectoris; I10 Essential (primary) hypertension

== ENCOUNTER 2020-03-29 15:38 | Emergency (ER) | payer MEDICARE, OTHER ==
[~2020-03-29] VITALS: Ht 182.9 cm; Wt 124.0 kg
[2020-03-29 15:38] VITALS: BP 147/71
[~2020-03-29 15:38] MED LIST changes: +MONT10TA10 PO; -MONT10TA4 PO
--- NOTE | 2020-03-29 16:15 | REP ---
INDICATION: crush injury COMPARISON: None TECHNIQUE: AP, lateral, bilateral oblique views left 3rd digit. FINDINGS: Nondisplaced fracture at the terminal tuft suggesting crush injury. Overlying soft tissue swelling. No subcutaneous emphysema or foreign body. IMPRESSION: Nondisplaced fracture of the terminal tuft consistent with crush injury.. <Electronically signed by Garo Scanlon > 03/29/20 1623
== END 2020-03-29 17:00 | disposition home or self-care (01) ==
LOC: M ED 15:38
DX: S62.303A Unspecified fracture of third metacarpal bone, left hand, initial encounter for closed fracture (principal); W23.0XXA Caught, crushed, jammed, or pinched between moving objects, initial encounter; Y92.018 Other place in single-family (private) house as the place of occurrence of the external cause; I25.10 Atherosclerotic heart disease of native coronary artery without angina pectoris; J84.10 Pulmonary fibrosis, unspecified; Z79.899 Other long term (current) drug therapy; Z79.82 Long term (current) use of aspirin; Z79.01 Long term (current) use of anticoagulants

== ENCOUNTER → 2020-04-13 | Outpatient (REF) | payer MEDICARE ==
[~2020-04-13] MED LIST changes: -MONT10TA10 PO; +MONT5TAB2 PO
[2020-04-13 14:01] LABS: HEMOGLOBIN A1c 6.7 %
[2020-04-13 14:27] LABS: ALBUMIN 3.8 GM/DL (3.2-5.2); ALT/SGPT 32 U/L (12-78); BILIRUBIN,TOTAL 1.3 MG/DL (0.2-1.0); BLOOD UREA NITROGEN 21 MG/DL (7-18); CALCIUM LEVEL 8.8 MG/DL (8.5-10.1); CARBON DIOXIDE LEVEL 29 MEQ/L (21-32); CHLORIDE LEVEL 102 MEQ/L (98-107); CHOLESTEROL LEVEL 155 MG/DL (<200); CHOLESTEROL RISK RATIO 4.696 (<5); CREATININE FOR GFR 1.08 MG/DL (0.70-1.30); GLOMERULAR FILTRATION RATE > 60.0 (>56); GLUCOSE, FASTING 191 MG/DL (70-100); HDL CHOLESTEROL 33 MG/DL (>40); LDL CHOLESTEROL 71 MG/DL (<100); MAGNESIUM LEVEL 2.1 MG/DL (1.8-2.4); NON-HDL-C 122 MG/DL; POTASSIUM SERUM 3.9 MEQ/L (3.5-5.1); SODIUM LEVEL 139 MEQ/L (136-145); TOTAL PROTEIN 7.3 GM/DL (6.4-8.2); TRIGLYCERIDES LEVEL 255 MG/DL (<150)
[2020-04-13 14:40] LABS: MALB URINE SIEMENS 16.9 MG/L; MAU/CREAT RATIO 5.5 MCG/MG (0.0-30.0)
== END ==
LOC: M SFHCPLAZ 09:34
PROVIDERS: ATTEND Nurse Practitioner Family
DX: E78.5 Hyperlipidemia, unspecified (principal); E11.9 Type 2 diabetes mellitus without complications; I10 Essential (primary) hypertension

== ENCOUNTER → 2020-05-14 | Outpatient (CLI) | payer MEDICARE, OTHER ==
[~2020-05-14] MED LIST changes: +MONT10TA10 PO; -MONT5TAB2 PO
--- NOTE | 2020-05-14 11:48 | REP ---
INDICATION: OCCUPATIONAL EXPOSURE TO OTHER AIR CONTAMINANTS COMPARISON: 02/22/2019, 11/24/2018 TECHNIQUE: PA and lateral. FINDINGS: The mediastinum and cardiac silhouette are normal. The lung yung demonstrate mild chronic changes without acute consolidation, effusion, or pneumothorax. The skeletal structures are intact and normal. IMPRESSION: No acute cardiopulmonary process. <Electronically signed by Garo Scanlon > 05/14/20 1140
== END ==
LOC: M RAD 11:13
PROVIDERS: ATTEND Internal Medicine Pulmonary Disease
DX: Z57.39 Occupational exposure to other air contaminants (principal)

== ENCOUNTER → 2020-06-22 | Outpatient (CLI) | payer MEDICARE ==
--- NOTE | 2020-06-22 17:29 | REPPI ---
INDICATION: LLQ PAIN. COMPARISON: None. TECHNIQUE: Three AP views abdomen and pelvis. FINDINGS: Bowel gas pattern is normal with no evidence of bowel obstruction. No abnormal calcifications are seen. No dilated bowel loops are seen. IMPRESSION: Normal bowel gas pattern. <Electronically signed by Jersey Renner > 06/22/20 [id number]
== END ==
LOC: M PLAIMG 15:10
PROVIDERS: ATTEND Nurse Practitioner Family
DX: R10.32 Left lower quadrant pain (principal)
CPT/HCPCS: 36415; 74018; 80053; 85025; 86140; G0463

== ENCOUNTER → 2020-06-22 | Outpatient (REF) | payer MEDICARE ==
[2020-06-22 16:56] LABS: BASO # 0.1 10^3/uL (0.0-0.2); BASO % 0.6 % (0.0-1.0); EOS # 0.2 10^3/uL (0.0-0.5); EOS % 1.9 % (0.0-3.0); HEMATOCRIT 44.7 % (42.0-52.0); HEMOGLOBIN 15.1 g/dl (13.5-17.5); LYMPH # 2.6 10^3/uL (1.5-5.0); LYMPH % 32.9 % (24.0-44.0); MEAN CORPUSCULAR HEMOGLOBIN 28.7 pg (27.0-33.0); MEAN CORPUSCULAR HGB CONC 33.8 g/dl (32.0-36.5); MEAN CORPUSCULAR VOLUME 84.8 fl (80.0-96.0); MONO # 0.6 10^3/uL (0.0-0.8); MONO % 7.8 % (2.0-8.0); NEUTROPHILS # 4.5 10^3/uL (1.5-8.5); NEUTROPHILS % 56.4 % (36.0-66.0); PLATELET COUNT, AUTOMATED 195 10^3/uL (150-450); RED BLOOD COUNT 5.27 10^6/uL (4.30-6.10)
[2020-06-22 17:22] LABS: ALBUMIN 4.2 GM/DL (3.2-5.2); ALT/SGPT 37 U/L (12-78); BILIRUBIN,TOTAL 1.6 MG/DL (0.2-1.0); BLOOD UREA NITROGEN 12 MG/DL (7-18); CALCIUM LEVEL 8.8 MG/DL (8.5-10.1); CARBON DIOXIDE LEVEL 31 MEQ/L (21-32); CHLORIDE LEVEL 106 MEQ/L (98-107); GLOMERULAR FILTRATION RATE > 60.0 (>56); GLUCOSE, FASTING 137 MG/DL (70-100); POTASSIUM SERUM 4.2 MEQ/L (3.5-5.1); SODIUM LEVEL 140 MEQ/L (136-145); TOTAL PROTEIN 7.7 GM/DL (6.4-8.2)
== END ==
LOC: M SFHCPLAZ 15:09
PROVIDERS: ATTEND Nurse Practitioner Family
DX: R10.32 Left lower quadrant pain (principal)

== ENCOUNTER → 2020-08-09 | Outpatient (REF) | payer MEDICARE ==
[2020-08-09 14:04] LABS: ALBUMIN 3.9 GM/DL (3.2-5.2); ALT/SGPT 35 U/L (12-78); BILIRUBIN,TOTAL 1.2 MG/DL (0.2-1.0); BLOOD UREA NITROGEN 18 MG/DL (7-18); CARBON DIOXIDE LEVEL 32 MEQ/L (21-32); CHLORIDE LEVEL 106 MEQ/L (98-107); CHOLESTEROL LEVEL 149 MG/DL (<200); CHOLESTEROL RISK RATIO 4.966 (<5); CREATININE FOR GFR 1.01 MG/DL (0.70-1.30); GLOMERULAR FILTRATION RATE > 60.0 (>56); GLUCOSE, FASTING 177 MG/DL (70-100); HDL CHOLESTEROL 30 MG/DL (>40); LDL CHOLESTEROL 64 MG/DL (<100); NON-HDL-C 119 MG/DL; POTASSIUM SERUM 4.6 MEQ/L (3.5-5.1); SODIUM LEVEL 139 MEQ/L (136-145); TOTAL PROTEIN 7.3 GM/DL (6.4-8.2); TRIGLYCERIDES LEVEL 277 MG/DL (<150)
[2020-08-09 14:11] LABS: MALB URINE SIEMENS 22.3 MG/L; MAU/CREAT RATIO 7.2 MCG/MG (0.0-30.0)
[2020-08-09 15:07] LABS: HEMOGLOBIN A1c 6.9 %
== END ==
LOC: M PLALAB 09:24
PROVIDERS: ATTEND Nurse Practitioner Family
DX: E78.5 Hyperlipidemia, unspecified (principal); I10 Essential (primary) hypertension; E11.9 Type 2 diabetes mellitus without complications

== ENCOUNTER → 2020-12-10 | Outpatient (CLI) | payer MEDICAID, MEDICARE ==
[~2020-12-10] MED LIST changes: +ALIR75PE3 SC; +ISOVUE-370 76% 100ML VIAL ONE; -PRAL1INJ SC
--- NOTE | 2020-12-11 11:07 | REPVR ---
PROCEDURE INFORMATION: Exam: CT Head Without And With Contrast Exam date and time: 12/10/2020 1:35 PM Age: 55 years old Clinical indication: Condition or disease; Brain lesion TECHNIQUE: Imaging protocol: Computed tomography of the head without and with intravenous contrast. Radiation optimization: All CT scans at this facility use at least one of these dose optimization techniques: automated exposure control; mA and/or kV adjustment per patient size (includes targeted exams where dose is matched to clinical indication); or iterative reconstruction. Contrast material: ISOVUE 370; Contrast volume: 75 ml; Contrast route: INTRAVENOUS (IV); COMPARISON: 1. CT Head without contrast 04/28/2019 10:[address] Head without contrast 11/24/2018 11:06:28 AM FINDINGS: Brain: No abnormal contrast enhancement in brain. Enhancement is seen in major cerebral arterial and venous structures. Unchanged midline and slightly asymmetric left retro-cerebellar extra-axial fluid which may be prominent cisterna magna or arachnoid cyst, typically incidental finding. There is no acute intracranial hemorrhage. No extra-axial fluid collection. No evidence of acute infarct. Renner white differentiation is intact. There is no evidence of mass. There is no mass effect or midline shift. Cerebral ventricles: No ventriculomegaly. Paranasal sinuses: Visualized sinuses are unremarkable. No fluid levels. Mastoid air cells: Visualized mastoid air cells are well aerated. Bones/joints: Chronic right lamina papyracea fracture. Possible chronic left nasal bone fracture. Nonspecific 6 mm lucency in left frontal skull is unchanged. There is thinning of outer table and thinning and erosion of inner table. Soft tissues: Unremarkable. IMPRESSION: 1. No evidence of acute intracranial abnormality. No acute hemorrhage. No evidence of acute infarct or mass. 2. Stable nonspecific small lucent lesion in skull since 2018. Electronically signed by: Loretta Thomas On 12/11/2020 11:07:02 AM
== END ==
LOC: M PLAIMG 13:12
PROVIDERS: ATTEND Nurse Practitioner Family
DX: G93.9 Disorder of brain, unspecified (principal)
CPT/HCPCS: 70470; Q9967

== ENCOUNTER → 2021-02-05 | Outpatient (CLI) | payer MEDICARE, MEDICAID ==
[~2021-02-05] MED LIST changes: -ISOVUE-370 76% 100ML VIAL ONE
[2021-02-05 14:02] LABS: BASO % 0.6 % (0.0-1.0); EOS # 0.1 10^3/uL (0.0-0.5); HEMATOCRIT 44.6 % (42.0-52.0); HEMOGLOBIN 14.9 g/dl (13.5-17.5); LYMPH # 2.2 10^3/uL (1.5-5.0); LYMPH % 31.4 % (24.0-44.0); MEAN CORPUSCULAR HEMOGLOBIN 28.8 pg (27.0-33.0); MEAN CORPUSCULAR HGB CONC 33.4 g/dl (32.0-36.5); MEAN CORPUSCULAR VOLUME 86.1 fl (80.0-96.0); MONO # 0.6 10^3/uL (0.0-0.8); MONO % 8.1 % (2.0-8.0); NEUTROPHILS % 57.5 % (36.0-66.0); PLATELET COUNT, AUTOMATED 175 10^3/uL (150-450); RED BLOOD COUNT 5.18 10^6/uL (4.30-6.10)
[2021-02-05 14:20] LABS: ALBUMIN 3.8 GM/DL (3.2-5.2); ALT/SGPT 31 U/L (12-78); BILIRUBIN,TOTAL 1.3 MG/DL (0.2-1.0); BLOOD UREA NITROGEN 16 MG/DL (7-18); CALCIUM LEVEL 9.3 MG/DL (8.5-10.1); CARBON DIOXIDE LEVEL 27 MEQ/L (21-32); CHLORIDE LEVEL 105 MEQ/L (98-107); CHOLESTEROL LEVEL 133 MG/DL (<200); CHOLESTEROL RISK RATIO 4.586 (<5); CREATININE FOR GFR 0.94 MG/DL (0.70-1.30); GLOMERULAR FILTRATION RATE > 60.0 (>56); GLUCOSE, FASTING 176 MG/DL (70-100); HDL CHOLESTEROL 29 MG/DL (>40); LDL CHOLESTEROL 59 MG/DL (<100); NON-HDL-C 104 MG/DL; POTASSIUM SERUM 4.1 MEQ/L (3.5-5.1); SODIUM LEVEL 139 MEQ/L (136-145); TOTAL PROTEIN 7.4 GM/DL (6.4-8.2); TRIGLYCERIDES LEVEL 226 MG/DL (<150)
[2021-02-05 14:28] LABS: MALB URINE SIEMENS 15.5 MG/L; MAU/CREAT RATIO 7.1 MCG/MG (0.0-30.0)
[2021-02-05 19:44] LABS: HEMOGLOBIN A1c 6.8 %
== END ==
LOC: M PLALAB 08:27
PROVIDERS: ATTEND Nurse Practitioner Family
DX: E78.5 Hyperlipidemia, unspecified (principal); E11.9 Type 2 diabetes mellitus without complications; I10 Essential (primary) hypertension

== ENCOUNTER → 2021-03-21 | Outpatient (REF) | LOC: M LABSMTC 09:34 | PROVIDERS: ATTEND Pediatrics | DX: Z11.52 Encounter for screening for COVID-19 (principal); Z20.822 Contact with and (suspected) exposure to COVID-19 ==

== ENCOUNTER 2021-03-22 08:00 | Outpatient (CLI) | payer MEDICARE, MEDICAID ==
[~2021-03-22] VITALS: Ht 182.9 cm; Wt 119.0 kg
[~2021-03-22 08:00] MED LIST changes: +CASIRIVIMAB/IMDEVIMAB 1,200 MG in NS 250 ML IV ONE; +LOSA50TA28 PO; -LOSA50TA88 PO; -MONT10TA10 PO; +MONT10TA97 PO; +NS 1,000 ML IV SCH
[2021-03-22 08:32] VITALS: BP 133/68
[2021-03-22 09:02] VITALS: BP 129/67
[2021-03-22 09:32] VITALS: BP 131/65
[2021-03-22 10:32] VITALS: BP 128/69
== END 2021-03-22 10:32 | disposition home or self-care (01) ==
LOC: M OPCLI4PR 08:00
PROVIDERS: ATTEND Physician Assistant
DX: U07.1 COVID-19 (principal)

== ENCOUNTER → 2021-04-02 | Outpatient (CLI) | payer MEDICARE, MEDICAID ==
[~2021-04-02] MED LIST changes: -CASIRIVIMAB/IMDEVIMAB 1,200 MG in NS 250 ML IV ONE; -NS 1,000 ML IV SCH
[2021-04-02 13:44] LABS: C REACTIVE PROTEIN QUANTITATIV < 0.30 MG/DL (0.00-0.30); RHEUMATOID FACTOR QUANT < 10.0 IU/ML (<15.0)
[2021-04-03 23:10] LABS: ANTINUCLEAR ANTIBODIES DIRECT Negative (Negative); CYCLIC CITRULLINATED PEPTIDE 6 units (0-19)
== END ==
LOC: M PLALAB 11:56
PROVIDERS: ATTEND Nurse Practitioner Family
DX: M25.50 Pain in unspecified joint (principal); Z23 Encounter for immunization
CPT/HCPCS: 36415; 86038; 86140; 86200; 86431; 90682; G0008; G0463

== ENCOUNTER → 2021-06-14 | Outpatient (CLI) | payer OTHER ==
[2021-06-14 07:26] LABS: BLOOD UREA NITROGEN 21 MG/DL (7-18); CREATININE FOR GFR 1.03 MG/DL (0.70-1.30); GLOMERULAR FILTRATION RATE > 60.0 (>56)
== END ==
LOC: M LAB 06:21
PROVIDERS: ATTEND Internal Medicine Pulmonary Disease
DX: J84.10 Pulmonary fibrosis, unspecified (principal)

== ENCOUNTER → 2021-06-18 | Outpatient (CLI) | payer MEDICARE, MEDICAID ==
[~2021-06-18] MED LIST changes: +ISOVUE-370 76% 100ML VIAL As Ordered ONE
== END ==
LOC: M RAD 15:50
PROVIDERS: ATTEND Internal Medicine Pulmonary Disease
DX: Z57.39 Occupational exposure to other air contaminants (principal); J84.10 Pulmonary fibrosis, unspecified; J47.9 Bronchiectasis, uncomplicated
CPT/HCPCS: 71260; Q9967

== ENCOUNTER → 2021-07-12 | Outpatient (CLI) | payer MEDICARE, MEDICAID ==
[~2021-07-12] MED LIST changes: -ISOVUE-370 76% 100ML VIAL As Ordered ONE
== END ==
LOC: M PLAIMG 11:31
PROVIDERS: ATTEND Physician Assistant Medical
DX: M51.36 Other intervertebral disc degeneration, lumbar region (principal)

== ENCOUNTER → 2021-07-22 | Outpatient (CLI) | payer MEDICARE, MEDICAID ==
[2021-07-22 08:35] LABS: HEMOGLOBIN A1c 8.5 %
[2021-07-22 08:38] LABS: ALBUMIN 3.7 GM/DL (3.2-5.2); ALT/SGPT 43 U/L (12-78); BLOOD UREA NITROGEN 21 MG/DL (7-18); CALCIUM LEVEL 9.1 MG/DL (8.5-10.1); CARBON DIOXIDE LEVEL 28 MEQ/L (21-32); CHLORIDE LEVEL 107 MEQ/L (98-107); CREATININE FOR GFR 0.99 MG/DL (0.70-1.30); GLOMERULAR FILTRATION RATE > 60.0 (>56); GLUCOSE, FASTING 265 MG/DL (70-100); POTASSIUM SERUM 3.8 MEQ/L (3.5-5.1); SODIUM LEVEL 141 MEQ/L (136-145)
== END ==
LOC: M LAB 07:20
PROVIDERS: ATTEND Nurse Practitioner Family
DX: E11.9 Type 2 diabetes mellitus without complications (principal)

== ENCOUNTER 2021-08-12 07:00 | Emergency (ER) | payer MEDICARE, MEDICAID ==
[~2021-08-12] VITALS: Ht 180.3 cm; Wt 118.9 kg
[2021-08-12] MEDS ORDERED: LIDOCAINE 5% (LIDODERM) PATCH TD ONE (08:00)
[2021-08-12] MEDS ORDERED: ACETAMINOPHEN 500 MG TAB PO ONE (08:00)
[2021-08-12] MEDS ORDERED: diazePAM 10MG/2ML SYRINGE (J3360 PER 5MG) IV ONE (08:00)
[2021-08-12] MEDS ORDERED: ISOVUE-370 76% 100ML VIAL As Ordered ONE (08:44)
[2021-08-12 08:55] LABS: BASO % 0.3 % (0.0-1.0); HEMATOCRIT 41.4 % (42.0-52.0); HEMOGLOBIN 14.3 g/dl (13.5-17.5); LYMPH # 1.1 10^3/uL (1.5-5.0); LYMPH % 15.7 % (24.0-44.0); MEAN CORPUSCULAR HEMOGLOBIN 29.6 pg (27.0-33.0); MEAN CORPUSCULAR HGB CONC 34.5 g/dl (32.0-36.5); MEAN CORPUSCULAR VOLUME 85.7 fl (80.0-96.0); MONO # 0.2 10^3/uL (0.0-0.8); MONO % 2.3 % (2.0-8.0); NEUTROPHILS # 5.6 10^3/uL (1.5-8.5); NEUTROPHILS % 81.1 % (36.0-66.0); PLATELET COUNT, AUTOMATED 200 10^3/uL (150-450); RED BLOOD COUNT 4.83 10^6/uL (4.30-6.10); WHITE BLOOD COUNT 6.9 10^3/uL (4.0-10.0)
[2021-08-12 09:20] LABS: CK-MB VALUE MASS 1.1 NG/ML (<3.6); CPK CREATINE PHOSPHOKINASE 83 U/L (39-308); MB/CK RELATIVE INDEX 1.33 (< OR =4)
[2021-08-12 09:23] LABS: ALBUMIN 3.7 GM/DL (3.2-5.2); BILIRUBIN,DIRECT 0.3 MG/DL (0.0-0.2); BILIRUBIN,TOTAL 1.6 MG/DL (0.2-1.0); TOTAL PROTEIN 7.2 GM/DL (6.4-8.2)
[2021-08-12] MEDS ORDERED: ASPE4PAD TOP (10:10)
[2021-08-12] MEDS ORDERED: TRAM50TA2 PO (10:10)
[2021-08-12] MEDS ORDERED: METH-1165 PO (10:10)
[2021-08-12 10:20] VITALS: BP 130/64
[2021-08-12] MEDS ORDERED: **NOTE PATIENT COMMENT** MISC XX SCH (21:00)
== END 2021-08-12 10:28 | disposition home or self-care (01) ==
LOC: M ED 07:00
DX: M54.6 Pain in thoracic spine (principal); S22.060D Wedge compression fracture of T7-T8 vertebra, subsequent encounter for fracture with routine healing; I10 Essential (primary) hypertension; J84.10 Pulmonary fibrosis, unspecified; E78.5 Hyperlipidemia, unspecified; I25.2 Old myocardial infarction; K21.9 Gastro-esophageal reflux disease without esophagitis; J45.909 Unspecified asthma, uncomplicated; Z86.718 Personal history of other venous thrombosis and embolism; Z79.82 Long term (current) use of aspirin; Z79.899 Other long term (current) drug therapy
CPT/HCPCS: 71045; 71275; 80047; 80076; 82550; 82553; 84484; 85025; 93005; 96374; 99284; J3360; Q9967

== ENCOUNTER → 2021-10-01 | Outpatient (CLI) | payer MEDICARE, MEDICAID ==
[~2021-10-01] MED LIST changes: +ASPE4PAD TOP; +METH-1165 PO; +TRAM50TA2 PO
[2021-10-01 15:40] LABS: BASO # 0.1 10^3/uL (0.0-0.2); BASO % 0.6 % (0.0-1.0); EOS # 0.1 10^3/uL (0.0-0.5); EOS % 1.7 % (0.0-3.0); HEMATOCRIT 44.1 % (42.0-52.0); HEMOGLOBIN 14.9 g/dl (13.5-17.5); LYMPH # 2.7 10^3/uL (1.5-5.0); LYMPH % 32.9 % (24.0-44.0); MEAN CORPUSCULAR HEMOGLOBIN 28.3 pg (27.0-33.0); MEAN CORPUSCULAR HGB CONC 33.8 g/dl (32.0-36.5); MEAN CORPUSCULAR VOLUME 83.7 fl (80.0-96.0); MONO # 0.6 10^3/uL (0.0-0.8); MONO % 6.9 % (2.0-8.0); NEUTROPHILS # 4.6 10^3/uL (1.5-8.5); NEUTROPHILS % 57.3 % (36.0-66.0); PLATELET COUNT, AUTOMATED 168 10^3/uL (150-450); RED BLOOD COUNT 5.27 10^6/uL (4.30-6.10); WHITE BLOOD COUNT 8.1 10^3/uL (4.0-10.0)
[2021-10-01 15:59] LABS: ALBUMIN 3.9 GM/DL (3.2-5.2); ALT/SGPT 30 U/L (12-78); BILIRUBIN,TOTAL 1.7 MG/DL (0.2-1.0); BLOOD UREA NITROGEN 16 MG/DL (7-18); CALCIUM LEVEL 8.8 MG/DL (8.5-10.1); CARBON DIOXIDE LEVEL 32 MEQ/L (21-32); CHLORIDE LEVEL 101 MEQ/L (98-107); CHOLESTEROL LEVEL 127 MG/DL (<200); CHOLESTEROL RISK RATIO 3.628 (<5); CREATININE FOR GFR 0.99 MG/DL (0.70-1.30); GLOMERULAR FILTRATION RATE > 60.0 (>56); GLUCOSE, FASTING 246 MG/DL (70-100); HDL CHOLESTEROL 35 MG/DL (>40); LDL CHOLESTEROL 47 MG/DL (<100); NON-HDL-C 92 MG/DL; POTASSIUM SERUM 4.2 MEQ/L (3.5-5.1); SODIUM LEVEL 136 MEQ/L (136-145); TOTAL PROTEIN 7.3 GM/DL (6.4-8.2); TRIGLYCERIDES LEVEL 226 MG/DL (<150)
[2021-10-01 16:01] LABS: HEMOGLOBIN A1c 7.8 %
[2021-10-01 16:09] LABS: MALB URINE SIEMENS 12.3 MG/L; MAU/CREAT RATIO 11.3 MCG/MG (0.0-30.0)
== END ==
LOC: M PLALAB 11:57
PROVIDERS: ATTEND Nurse Practitioner Family
DX: E78.5 Hyperlipidemia, unspecified (principal); I10 Essential (primary) hypertension; E11.9 Type 2 diabetes mellitus without complications

== ENCOUNTER → 2021-11-01 | Outpatient (REF) | payer MEDICARE, MEDICAID | LOC: M SFHCPLAZ 12:57 | PROVIDERS: ATTEND Nurse Practitioner Family | DX: L91.8 Other hypertrophic disorders of the skin (principal) ==

== ENCOUNTER → 2022-02-03 | Outpatient (CLI) | payer MEDICARE, MEDICAID ==
[~2022-02-03] MED LIST changes: +CLOP75TA99 PO; -PLAV1TAB2 PO
[2022-02-03 15:59] LABS: BASO % 0.4 % (0.0-1.0); EOS # 0.1 10^3/uL (0.0-0.5); EOS % 0.9 % (0.0-3.0); HEMATOCRIT 46.6 % (42.0-52.0); HEMOGLOBIN 15.7 g/dl (13.5-17.5); LYMPH # 2.5 10^3/uL (1.5-5.0); LYMPH % 32.7 % (24.0-44.0); MEAN CORPUSCULAR HEMOGLOBIN 28.5 pg (27.0-33.0); MEAN CORPUSCULAR HGB CONC 33.7 g/dl (32.0-36.5); MEAN CORPUSCULAR VOLUME 84.6 fl (80.0-96.0); MONO # 0.5 10^3/uL (0.0-0.8); MONO % 7.2 % (2.0-8.0); NEUTROPHILS # 4.4 10^3/uL (1.5-8.5); NEUTROPHILS % 58.3 % (36.0-66.0); PLATELET COUNT, AUTOMATED 178 10^3/uL (150-450); RED BLOOD COUNT 5.51 10^6/uL (4.30-6.10); WHITE BLOOD COUNT 7.5 10^3/uL (4.0-10.0)
[2022-02-03 17:22] LABS: ALKALINE PHOSPHATASE 125 U/L (45-117); ALT/SGPT 31 U/L (12-78); AST/SGOT 16 U/L (7-37); BILIRUBIN,TOTAL 1.6 MG/DL (0.2-1.0); BLOOD UREA NITROGEN 15 MG/DL (7-18); CALCIUM LEVEL 8.9 MG/DL (8.5-10.1); CARBON DIOXIDE LEVEL 29 MEQ/L (21-32); CHLORIDE LEVEL 104 MEQ/L (98-107); CHOLESTEROL LEVEL 162 MG/DL (<200); CREATININE FOR GFR 1.11 MG/DL (0.70-1.30); GLOMERULAR FILTRATION RATE > 60.0 (>56); GLUCOSE, FASTING 247 MG/DL (70-100); HDL CHOLESTEROL 30 MG/DL (>40); LDL CHOLESTEROL 69 MG/DL (<100); NON-HDL-C 132 MG/DL; POTASSIUM SERUM 4.3 MEQ/L (3.5-5.1); SODIUM LEVEL 138 MEQ/L (136-145); TOTAL PROTEIN 7.5 GM/DL (6.4-8.2); TRIGLYCERIDES LEVEL 315 MG/DL (<150)
[2022-02-03 18:02] LABS: MALB URINE SIEMENS 10.5 MG/L; MAU/CREAT RATIO 6.1 MCG/MG (0.0-30.0)
[2022-02-03 22:06] LABS: HEMOGLOBIN A1c 8.6 %
== END ==
LOC: M PLALAB 12:01
PROVIDERS: ATTEND Nurse Practitioner Family
DX: E78.5 Hyperlipidemia, unspecified (principal); E11.9 Type 2 diabetes mellitus without complications; I25.10 Atherosclerotic heart disease of native coronary artery without angina pectoris

== ENCOUNTER → 2022-05-12 | Outpatient (CLI) | payer OTHER, SELFPAY | LOC: M PLAIMG 11:50 | PROVIDERS: ATTEND Internal Medicine Pulmonary Disease | DX: Z57.39 Occupational exposure to other air contaminants (principal) ==

== ENCOUNTER → 2022-08-07 | Outpatient (CLI) | payer MEDICARE, MEDICAID ==
[2022-08-07 12:14] LABS: BASO # 0.1 10^3/uL (0.0-0.2); BASO % 0.6 % (0.0-1.0); EOS # 0.1 10^3/uL (0.0-0.5); EOS % 1.3 % (0.0-3.0); HEMATOCRIT 47.1 % (42.0-52.0); HEMOGLOBIN 15.7 g/dl (13.5-17.5); LYMPH # 2.4 10^3/uL (1.5-5.0); MEAN CORPUSCULAR HGB CONC 33.3 g/dl (32.0-36.5); MEAN CORPUSCULAR VOLUME 86.9 fl (80.0-96.0); MONO # 0.5 10^3/uL (0.0-0.8); MONO % 6.9 % (2.0-8.0); NEUTROPHILS # 4.7 10^3/uL (1.5-8.5); NEUTROPHILS % 59.6 % (36.0-66.0); PLATELET COUNT, AUTOMATED 177 10^3/uL (150-450); RED BLOOD COUNT 5.42 10^6/uL (4.30-6.10); WHITE BLOOD COUNT 7.9 10^3/uL (4.0-10.0)
[2022-08-07 12:28] LABS: HEMOGLOBIN A1c 7.4 % (4.0-6.0)
[2022-08-07 12:39] LABS: CREATININE, URINE 44.7 MG/DL
[2022-08-07 12:40] LABS: MALB URINE SIEMENS < 3.0 MG/L; MAU/CREAT RATIO 6.7 MCG/MG (0.0-30.0)
[2022-08-07 12:41] LABS: ALBUMIN 3.9 G/DL (3.2-5.2); ALKALINE PHOSPHATASE 111 U/L (46-116); ALT/SGPT 30 U/L (7.0-40); AST/SGOT < 8 U/L (<34); BILIRUBIN,TOTAL 1.5 MG/DL (0.3-1.2); BLOOD UREA NITROGEN 23 MG/DL (9-23); CALCIUM LEVEL 8.6 MG/DL (8.5-10.1); CARBON DIOXIDE LEVEL 30 MMOL/L (20-31); CHLORIDE LEVEL 105 MMOL/L (98-107); CHOLESTEROL LEVEL 128 MG/DL (<200); CREATININE FOR GFR 0.91 MG/DL (0.70-1.30); GLOMERULAR FILTRATION RATE > 60.0 (>56); GLUCOSE, FASTING 196 MG/DL (60-100); LDL CHOLESTEROL 41.6 MG/DL (<100); POTASSIUM SERUM 3.9 MMOL/L (3.5-5.1); SODIUM LEVEL 140 MMOL/L (136-145); TOTAL PROTEIN 6.8 G/DL (5.7-8.2); TRIGLYCERIDES LEVEL 272 MG/DL (<150)
[2022-08-07 12:43] LABS: FREE T4 0.91 NG/DL (0.89-1.76); THYROID STIMULATING HORMONE 1.162 uIU/ML (0.55-4.78)
== END ==
LOC: M LAB 10:12
PROVIDERS: ATTEND Nurse Practitioner Family
DX: E78.5 Hyperlipidemia, unspecified (principal); E11.9 Type 2 diabetes mellitus without complications; I10 Essential (primary) hypertension

== ENCOUNTER → 2022-08-28 | Outpatient (CLI) | payer MEDICARE, MEDICAID | LOC: M PLAIMG 10:15 | PROVIDERS: ATTEND Nurse Practitioner Family | DX: M99.53 Intervertebral disc stenosis of neural canal of lumbar region (principal); M48.061 Spinal stenosis, lumbar region without neurogenic claudication ==

== ENCOUNTER 2022-09-16 13:33 | Emergency (ER) | payer MEDICARE, MEDICAID ==
[~2022-09-16] VITALS: Ht 180.3 cm; Wt 114.8 kg
[2022-09-16 13:34] VITALS: BP 128/68; TEMP 97.5; O2SAT 95
[2022-09-16] MEDS ORDERED: RANO500T2 (13:48)
[2022-09-16] MEDS ORDERED: JARD1TAB3 (13:48)
== END 2022-09-16 15:16 | disposition left against medical advice (07) ==
LOC: M ED 13:33
DX: Z53.21 Procedure and treatment not carried out due to patient leaving prior to being seen by health care provider (principal)

== ENCOUNTER → 2022-10-08 | Outpatient (CLI) | payer MEDICARE, MEDICAID ==
[~2022-10-08] MED LIST changes: +JARD1TAB3; +RANO500T2
[2022-10-08 15:27] LABS: PLATELET COUNT, AUTOMATED 178 10^3/uL (150-450)
[2022-10-08 15:39] LABS: INR 0.91; PARTIAL THROMBOPLASTIN TIME 27.5 SECONDS (24.8-34.2); PROTHROMBIN TIME 12.4 SECONDS (12.5-14.5)
== END ==
LOC: M PLALAB 12:16
PROVIDERS: ATTEND Physician Assistant Surgical
DX: Z01.818 Encounter for other preprocedural examination (principal); Z79.02 Long term (current) use of antithrombotics/antiplatelets

== ENCOUNTER 2022-10-09 21:35 | Emergency (ER) | payer MEDICARE, MEDICAID ==
[~2022-10-09] VITALS: Ht 180.3 cm; Wt 115.7 kg
[2022-10-09 21:36] VITALS: TEMP 97.9
[2022-10-09 22:50] LABS: BASO % 0.2 % (0.0-1.0); EOS # 0.2 10^3/uL (0.0-0.5); EOS % 1.9 % (0.0-3.0); HEMATOCRIT 42.7 % (42.0-52.0); HEMOGLOBIN 14.7 g/dl (13.5-17.5); LYMPH # 3.4 10^3/uL (1.5-5.0); LYMPH % 38.3 % (24.0-44.0); MEAN CORPUSCULAR HEMOGLOBIN 29.4 pg (27.0-33.0); MEAN CORPUSCULAR HGB CONC 34.4 g/dl (32.0-36.5); MEAN CORPUSCULAR VOLUME 85.4 fl (80.0-96.0); MONO # 0.7 10^3/uL (0.0-0.8); MONO % 7.8 % (2.0-8.0); NEUTROPHILS # 4.5 10^3/uL (1.5-8.5); NEUTROPHILS % 51.2 % (36.0-66.0); PLATELET COUNT, AUTOMATED 177 10^3/uL (150-450); WHITE BLOOD COUNT 8.9 10^3/uL (4.0-10.0)
[2022-10-09 23:39] LABS: BLOOD UREA NITROGEN 15 MG/DL (9-23); CALCIUM LEVEL 9.1 MG/DL (8.5-10.1); CARBON DIOXIDE LEVEL 26 MMOL/L (20-31); CHLORIDE LEVEL 106 MMOL/L (98-107); CK-MB VALUE MASS < 1.0 NG/ML (<3.6); CPK CREATINE PHOSPHOKINASE 137 U/L (46-171); CREATININE FOR GFR 0.94 MG/DL (0.70-1.30); GLOMERULAR FILTRATION RATE > 60.0 (>56); GLUCOSE, FASTING 142 MG/DL (60-100); MB/CK RELATIVE INDEX 0.72 (< OR =4); POTASSIUM SERUM 3.5 MMOL/L (3.5-5.1); SODIUM LEVEL 140 MMOL/L (136-145)
[2022-10-09 23:45] VITALS: BP 137/74
[2022-10-09] MEDS ORDERED: NITROGLYCERIN 0.4MG SUBL TABLET SL PRN (23:55)
[2022-10-09] MEDS ORDERED: ISOVUE-370 76% 100ML VIAL As Ordered ONE (23:55)
[2022-10-09] MEDS ORDERED: PANTOPRAZOLE 40MG TAB (PROTONIX) PO ONE (23:55)
[2022-10-10 00:45] VITALS: O2SAT 95
[2022-10-10] MEDS ORDERED: HEPARIN DRIP 25,000 UNITS in IV 1 EA IV SCH (02:10)
[2022-10-10 02:55] LABS: RSV AMPLIFICATION NEGATIVE (NEGATIVE)
== END 2022-10-10 02:32 | disposition short-term general hospital (02) ==
LOC: M ED 21:35
DX: I20.0 Unstable angina (principal); E11.9 Type 2 diabetes mellitus without complications; I10 Essential (primary) hypertension; E78.5 Hyperlipidemia, unspecified; J45.909 Unspecified asthma, uncomplicated; Z95.5 Presence of coronary angioplasty implant and graft; Z79.899 Other long term (current) drug therapy; Z79.82 Long term (current) use of aspirin; Z79.51 Long term (current) use of inhaled steroids
CPT/HCPCS: 71046; 71275; 80048; 82550; 82553; 84484; 85025; 87631; 93005; 96365; 99284; Q9967

== ENCOUNTER → 2022-12-13 | Outpatient (CLI) | payer MEDICARE, MEDICAID ==
[2022-12-13 10:41] LABS: BASO % 0.5 % (0.0-1.0); EOS # 0.2 10^3/uL (0.0-0.5); EOS % 1.8 % (0.0-3.0); HEMATOCRIT 45.3 % (42.0-52.0); HEMOGLOBIN 15.3 g/dl (13.5-17.5); LYMPH # 2.2 10^3/uL (1.5-5.0); LYMPH % 26.7 % (24.0-44.0); MEAN CORPUSCULAR HEMOGLOBIN 28.9 pg (27.0-33.0); MEAN CORPUSCULAR HGB CONC 33.8 g/dl (32.0-36.5); MEAN CORPUSCULAR VOLUME 85.5 fl (80.0-96.0); MONO # 0.7 10^3/uL (0.0-0.8); MONO % 8.6 % (2.0-8.0); NEUTROPHILS # 5.1 10^3/uL (1.5-8.5); NEUTROPHILS % 61.9 % (36.0-66.0); PLATELET COUNT, AUTOMATED 143 10^3/uL (150-450); WHITE BLOOD COUNT 8.3 10^3/uL (4.0-10.0)
[2022-12-13 10:56] LABS: HEMOGLOBIN A1c 5.7 % (4.0-6.0)
[2022-12-13 11:07] LABS: ALKALINE PHOSPHATASE 112 U/L (46-116); ALT/SGPT 27 U/L (7.0-40); AST/SGOT 16 U/L (<34); BILIRUBIN,TOTAL 1.1 MG/DL (0.3-1.2); BLOOD UREA NITROGEN 17 MG/DL (9-23); CALCIUM LEVEL 8.6 MG/DL (8.5-10.1); CARBON DIOXIDE LEVEL 30 MMOL/L (20-31); CHLORIDE LEVEL 106 MMOL/L (98-107); CHOLESTEROL LEVEL 165 MG/DL (<200); CREATININE FOR GFR 0.89 MG/DL (0.70-1.30); GLOMERULAR FILTRATION RATE > 60.0 (>56); GLUCOSE, FASTING 151 MG/DL (60-100); LDL CHOLESTEROL 65.4 MG/DL (<100); POTASSIUM SERUM 4.2 MMOL/L (3.5-5.1); SODIUM LEVEL 142 MMOL/L (136-145); TOTAL PROTEIN 7.1 G/DL (5.7-8.2); TRIGLYCERIDES LEVEL 348 MG/DL (<150)
== END ==
LOC: M LAB 10:17
PROVIDERS: ATTEND Nurse Practitioner Family
DX: E78.5 Hyperlipidemia, unspecified (principal); I10 Essential (primary) hypertension; E11.9 Type 2 diabetes mellitus without complications

== ENCOUNTER → 2023-04-18 | Outpatient (CLI) | payer MEDICARE, MEDICAID ==
[2023-04-18 10:08] LABS: BASO # 0.1 10^3/uL (0.0-0.2); BASO % 0.6 % (0.0-1.0); EOS # 0.2 10^3/uL (0.0-0.5); EOS % 2.4 % (0.0-3.0); HEMATOCRIT 48.4 % (42.0-52.0); HEMOGLOBIN 16.2 g/dl (13.5-17.5); LYMPH # 2.4 10^3/uL (1.5-5.0); LYMPH % 30.3 % (24.0-44.0); MEAN CORPUSCULAR HEMOGLOBIN 28.5 pg (27.0-33.0); MEAN CORPUSCULAR HGB CONC 33.5 g/dl (32.0-36.5); MEAN CORPUSCULAR VOLUME 85.2 fl (80.0-96.0); MONO # 0.5 10^3/uL (0.0-0.8); MONO % 6.7 % (2.0-8.0); NEUTROPHILS # 4.7 10^3/uL (1.5-8.5); NEUTROPHILS % 59.5 % (36.0-66.0); PLATELET COUNT, AUTOMATED 173 10^3/uL (150-450); RED BLOOD COUNT 5.68 10^6/uL (4.30-6.10)
[2023-04-18 10:23] LABS: HEMOGLOBIN A1c 6.4 % (4.0-6.0)
[2023-04-18 10:30] LABS: CREATININE, URINE 100.5 MG/DL
[2023-04-18 10:31] LABS: MALB URINE SIEMENS < 3.0 MG/L; MAU/CREAT RATIO 2.9 MCG/MG (0.0-30.0)
[2023-04-18 10:33] LABS: ALBUMIN 4.1 G/DL (3.2-5.2); ALKALINE PHOSPHATASE 110 U/L (46-116); ALT/SGPT 28 U/L (7.0-40); AST/SGOT 12 U/L (<34); BILIRUBIN,TOTAL 1.5 MG/DL (0.3-1.2); BLOOD UREA NITROGEN 17 MG/DL (9-23); CALCIUM LEVEL 8.6 MG/DL (8.5-10.1); CARBON DIOXIDE LEVEL 29 MMOL/L (20-31); CHLORIDE LEVEL 106 MMOL/L (98-107); CHOLESTEROL LEVEL 159 MG/DL (<200); CHOLESTEROL RISK RATIO 4.78 (<5); CREATININE FOR GFR 0.93 MG/DL (0.70-1.30); GLOMERULAR FILTRATION RATE > 60.0 (>56); GLUCOSE, FASTING 164 MG/DL (60-100); HDL CHOLESTEROL 33.2 MG/DL (>40); LDL CHOLESTEROL 69.2 MG/DL (<100); NON-HDL-C 125.8 MG/DL; POTASSIUM SERUM 3.9 MMOL/L (3.5-5.1); PSA SCREENING 0.36 NG/ML (< 4.00); SODIUM LEVEL 138 MMOL/L (136-145); TOTAL PROTEIN 7.4 G/DL (5.7-8.2); TRIGLYCERIDES LEVEL 283 MG/DL (<150)
[2023-04-18 10:34] LABS: THYROID STIMULATING HORMONE 2.349 uIU/ML (0.55-4.78)
[2023-04-18 10:35] LABS: FREE T4 0.92 NG/DL (0.89-1.76)
[2023-04-21 23:09] LABS: TESTOSTERONE FREE (DIRECT) 5.2 pg/mL (7.2-24.0)
== END ==
LOC: M LAB 08:43
PROVIDERS: ATTEND Nurse Practitioner Family
DX: E11.9 Type 2 diabetes mellitus without complications (principal); E78.5 Hyperlipidemia, unspecified; Z12.5 Encounter for screening for malignant neoplasm of prostate; N52.9 Male erectile dysfunction, unspecified; I10 Essential (primary) hypertension; F32.9 Major depressive disorder, single episode, unspecified
CPT/HCPCS: 36415; 80053; 80061; 82043; 83036; 84402; 84403; 84439; 84443; 85025; G0103

== ENCOUNTER → 2023-08-10 | Outpatient (CLI) | payer OTHER, MEDICARE, MEDICAID | LOC: M RAD 09:18 | PROVIDERS: ATTEND Internal Medicine Pulmonary Disease | DX: Z57.39 Occupational exposure to other air contaminants (principal) ==

== ENCOUNTER → 2023-12-18 | Outpatient (CLI) | payer MEDICARE, MEDICAID ==
[~2023-12-18] MED LIST changes: +AMLO1TAB25 PO; +ECOT81TA5 PO; +FLUT15.820; +INCR1INH; -JARD1TAB3; +JARD1TAB3 PO; +MELO7.5T35 PO; -RANO500T2; +RANO500T2 PO; +SITA50TAB PO; +ZOLO100T PO
[2023-12-18 07:51] LABS: BASO % 0.4 % (0.0-1.0); EOS # 0.2 10^3/uL (0.0-0.5); EOS % 1.9 % (0.0-3.0); HEMATOCRIT 46.2 % (42.0-52.0); HEMOGLOBIN 15.7 g/dl (13.5-17.5); LYMPH # 2.6 10^3/uL (1.5-5.0); MEAN CORPUSCULAR HEMOGLOBIN 29.2 pg (27.0-33.0); MONO # 0.8 10^3/uL (0.0-0.8); MONO % 8.2 % (2.0-8.0); NEUTROPHILS # 5.7 10^3/uL (1.5-8.5); NEUTROPHILS % 61.1 % (36.0-66.0); PLATELET COUNT, AUTOMATED 155 10^3/uL (150-450); RED BLOOD COUNT 5.37 10^6/uL (4.30-6.10); WHITE BLOOD COUNT 9.3 10^3/uL (4.0-10.0)
[2023-12-18 08:17] LABS: CREATININE, URINE 106.3 MG/DL; MALB URINE SIEMENS < 3.0 MG/L; MAU/CREAT RATIO 2.8 MCG/MG (0.0-30.0)
[2023-12-18 08:19] LABS: ALKALINE PHOSPHATASE 120 U/L (46-116); ALT/SGPT 27 U/L (7.0-40); AST/SGOT 10 U/L (<34); BILIRUBIN,TOTAL 1.5 MG/DL (0.3-1.2); BLOOD UREA NITROGEN 21 MG/DL (9-23); CALCIUM LEVEL 8.7 MG/DL (8.5-10.1); CARBON DIOXIDE LEVEL 28 MMOL/L (20-31); CHLORIDE LEVEL 106 MMOL/L (98-107); CHOLESTEROL LEVEL 160 MG/DL (<200); CHOLESTEROL RISK RATIO 5.63 (<5); CREATININE FOR GFR 1.01 MG/DL (0.70-1.30); GLOMERULAR FILTRATION RATE > 60.0 (>56); GLUCOSE, FASTING 150 MG/DL (60-100); HDL CHOLESTEROL 28.4 MG/DL (>40); NON-HDL-C 131.6 MG/DL; SODIUM LEVEL 138 MMOL/L (136-145); TOTAL PROTEIN 7.3 G/DL (5.7-8.2); TRIGLYCERIDES LEVEL 308 MG/DL (<150)
[2023-12-18 08:22] LABS: FREE T4 1.05 NG/DL (0.89-1.76)
[2023-12-18 08:28] LABS: HEMOGLOBIN A1c 6.3 % (4.0-6.0)
== END ==
LOC: M LAB 07:11
PROVIDERS: ATTEND Nurse Practitioner Family
DX: E11.9 Type 2 diabetes mellitus without complications (principal); E78.5 Hyperlipidemia, unspecified

== ENCOUNTER → 2024-01-13 | Outpatient (CLI) | payer MEDICARE, MEDICAID ==
[~2024-01-13] MED LIST changes: +TIRZ2.5P SQ
== END ==
LOC: M RAD 07:06
PROVIDERS: ATTEND Nurse Practitioner Family
DX: R10.84 Generalized abdominal pain (principal); K76.0 Fatty (change of) liver, not elsewhere classified; R16.2 Hepatomegaly with splenomegaly, not elsewhere classified

== ENCOUNTER → 2024-04-22 | Outpatient (CLI) | payer MEDICARE, MEDICAID ==
[~2024-04-22] MED LIST changes: +ATOR-398 PO; -LIPI80TA PO
[2024-04-22 07:02] LABS: BASO % 0.5 % (0.0-1.0); EOS # 0.2 10^3/uL (0.0-0.5); EOS % 2.3 % (0.0-3.0); HEMATOCRIT 45.7 % (42.0-52.0); HEMOGLOBIN 15.4 g/dl (13.5-17.5); LYMPH # 2.4 10^3/uL (1.5-5.0); LYMPH % 32.7 % (24.0-44.0); MEAN CORPUSCULAR HEMOGLOBIN 29.3 pg (27.0-33.0); MEAN CORPUSCULAR HGB CONC 33.7 g/dl (32.0-36.5); MONO # 0.6 10^3/uL (0.0-0.8); MONO % 8.5 % (2.0-8.0); NEUTROPHILS # 4.1 10^3/uL (1.5-8.5); NEUTROPHILS % 55.6 % (36.0-66.0); PLATELET COUNT, AUTOMATED 142 10^3/uL (150-450); RED BLOOD COUNT 5.25 10^6/uL (4.30-6.10); WHITE BLOOD COUNT 7.3 10^3/uL (4.0-10.0)
[2024-04-22 07:27] LABS: MALB URINE SIEMENS < 3.0 MG/L; PSA SCREENING 0.32 NG/ML (< 4.00)
[2024-04-22 07:29] LABS: ALBUMIN 3.7 G/DL (3.2-5.2); ALKALINE PHOSPHATASE 97 U/L (40-129); ALT/SGPT 29 U/L (7.0-40); AST/SGOT 15 U/L (<34); BILIRUBIN,TOTAL 1.1 MG/DL (0.3-1.2); BLOOD UREA NITROGEN 15 MG/DL (9-23); CALCIUM LEVEL 8.5 MG/DL (8.5-10.1); CARBON DIOXIDE LEVEL 30 MMOL/L (20-31); CHLORIDE LEVEL 108 MMOL/L (98-107); CHOLESTEROL LEVEL 141 MG/DL (<200); CHOLESTEROL RISK RATIO 5.03 (<5); CREATININE FOR GFR 0.93 MG/DL (0.70-1.30); GLOMERULAR FILTRATION RATE > 60.0 (>56); GLUCOSE, FASTING 156 MG/DL (60-100); LDL CHOLESTEROL 52.2 MG/DL (<100); MAGNESIUM LEVEL 2.1 MG/DL (1.8-2.4); POTASSIUM SERUM 3.8 MMOL/L (3.5-5.1); SODIUM LEVEL 143 MMOL/L (136-145); TRIGLYCERIDES LEVEL 304 MG/DL (<150)
[2024-04-22 07:35] LABS: HEMOGLOBIN A1c 6.6 % (4.0-6.0)
== END ==
LOC: M LAB 06:22
PROVIDERS: ATTEND Nurse Practitioner Family
DX: I10 Essential (primary) hypertension (principal); Z12.5 Encounter for screening for malignant neoplasm of prostate; E11.9 Type 2 diabetes mellitus without complications; E78.5 Hyperlipidemia, unspecified
CPT/HCPCS: 36415; 80053; 80061; 82043; 83036; 83735; 85025; G0103

== ENCOUNTER → 2024-08-03 | Outpatient (CLI) | payer MEDICARE, MEDICAID | LOC: M RAD 14:15 | PROVIDERS: ATTEND Internal Medicine Pulmonary Disease | DX: J98.4 Other disorders of lung (principal); J84.178 Other interstitial pulmonary diseases with fibrosis in diseases classified elsewhere ==

== ENCOUNTER → 2025-02-26 | Outpatient (CLI) | payer MEDICARE, MEDICAID ==
[~2025-02-26] MED LIST changes: -EZET10TA21 PO; +EZET10TA57 PO; -PRAV40TA2 PO; +PRAV40TA85 PO
[2025-02-26 09:39] LABS: BASO # 0.0 10^3/uL (0.0-0.2); BASO % 0.5 % (0.0-1.0); EOS # 0.2 10^3/uL (0.0-0.5); EOS % 2.5 % (0.0-3.0); LYMPH # 2.5 10^3/uL (1.5-5.0); LYMPH % 30.9 % (24.0-44.0); MONO # 0.6 10^3/uL (0.0-0.8); MONO % 7.2 % (2.0-8.0); NEUTROPHILS # 4.7 10^3/uL (1.5-8.5); NEUTROPHILS % 58.3 % (36.0-66.0); PLATELET COUNT, AUTOMATED 177 10^3/uL (150-450)
[2025-02-26 09:53] LABS: ESTIMATED AVERAGE GLUCOSE 134.0 MG/DL (60-110)
[2025-02-26 10:06] LABS: CREATININE, URINE 103.3 MG/DL; MALB URINE SIEMENS < 3.0 MG/L
[2025-02-26 10:06] LABS: ALT/SGPT 27 U/L (7.0-40); AST/SGOT 16 U/L (<34); CALCIUM LEVEL 9.0 MG/DL (8.5-10.1); CARBON DIOXIDE LEVEL 31 MMOL/L (20-31); CHLORIDE LEVEL 103 MMOL/L (98-107); CHOLESTEROL LEVEL 147 MG/DL (<200); CHOLESTEROL RISK RATIO 4.12 (<5); CREATININE FOR GFR 0.86 MG/DL (0.70-1.30); GLOMERULAR FILTRATION RATE > 90.0 (>56); LDL CHOLESTEROL 76.6 MG/DL (<100); MAGNESIUM LEVEL 1.9 MG/DL (1.8-2.4); NON-HDL-C 111.4 MG/DL; POTASSIUM SERUM 4.6 MMOL/L (3.5-5.1); SODIUM LEVEL 143 MMOL/L (136-145); TRIGLYCERIDES LEVEL 174 MG/DL (<150)
== END ==
LOC: M LAB 08:53
PROVIDERS: ATTEND Nurse Practitioner Family
DX: E11.9 Type 2 diabetes mellitus without complications (principal); I10 Essential (primary) hypertension; E78.5 Hyperlipidemia, unspecified